=== PATIENT | female | born 1965 | race Caucasian/White ===

== ENCOUNTER → 2020-04-08 15:49 | Outpatient (CLI) | payer OTHER, SELFPAY ==
--- NOTE | ~2020-04-08 | XR_ITS ---
EXAMINATION: XR abdomen/kub 1V DATE: 04/08/2020 16:11 INDICATION: Renal calculus TECHNIQUE: A supine view of the abdomen on 2 radiographs was obtained. COMPARISON: 11/13/2018 FINDINGS: 11 x 6 mm ovoid calcific density projecting over the upper pole of the left kidney. These location ho wever the very periphery of the kidney would be unlikely for a renal stone and is more likely to repr esent a pill or other ingested density in the superimposed stomach. A couple 1 mm densities projectin g over the central aspect of the lower pole of the left kidney more likely to represent tiny renal st ones. Possible 3 mm stone projecting over the lower pole of the right kidney however evaluation of th e right kidney is limited by superimposed stool in the proximal colon. Unchanged small phlebolith in the right hemipelvis. Normal bowel gas pattern with moderate amount of stool scattered throughout the colon. IMPRESSION: 1. A couple 1 mm stones at the lower pole of the left kidney and possible 3 mm stone at the lower traci e of the left kidney. Reviewed, dictated and finalized at location A. IMPRESSION: 1. A couple 1 mm stones at the lower pole of the left kidney and possible 3 mm stone at the lower pole of the left kidney.
== END ==
PROVIDERS: Visit Provider Internal Medicine Nephrology
DX: N20.0 Calculus of kidney (principal)
CPT/HCPCS: 74018

== ENCOUNTER → 2020-09-08 17:21 | Outpatient (CLI) | payer OTHER, SELFPAY ==
--- NOTE | ~2020-09-08 | MM_ITS ---
EXAMINATION: MM screening [facility] BI w melina HISTORY: Screening mammogram TECHNIQUE: Craniocaudal and mediolateral oblique 3-D tomosynthesis images were obtained and synthetic 2-D images were generated. CAD analysis was submitted and interpreted. COMPARISON: 08/23/2019, 07/25/2018, 05/18/2017 bilateral digital screening mammogram examinations BREAST PARENCHYMAL COMPOSITION: The breasts are almost entirely fatty. FINDINGS: There is no evidence of suspicious mass, calcification, or architectural distortion to sugg est malignancy in either breast. There has been no suspicious interval change. IMPRESSION: 1. No mammographic evidence of malignancy. 2. Recommend routine screening mammography in one year. BI-RADS Category 1: Negative Reviewed, dictated and finalized at location A. LE BREAKER
== END ==
PROVIDERS: PCP Internal Medicine; Visit Provider Nurse Practitioner Obstetrics & Gynecology
DX: Z12.31 Encounter for screening mammogram for malignant neoplasm of breast (principal)
CPT/HCPCS: 77063; 77067

== ENCOUNTER → 2021-04-05 18:10 | Outpatient (CLI) | payer OTHER, SELFPAY ==
--- NOTE | ~2021-04-05 | XR_ITS ---
XR wrist LT min 3V DATE: 04/05/2021 19:00 INDICATION: Rheumatoid arthritis TECHNIQUE: 4 views of left breast COMPARISON: None FINDINGS: No fracture or dislocation, periosteal reaction or bone destruction. No erosive change is n oted. No chondrocalcinosis. Joint spaces are well preserved. IMPRESSION: Negative Reviewed, dictated and finalized at location A. IMPRESSION: Negative
--- NOTE | ~2021-04-05 | XR_ITS ---
XR foot LT min 3V DATE: 04/05/2021 19:00 INDICATION: Rheumatoid arthritis TECHNIQUE: 4 views COMPARISON: 07/21/2019 left foot FINDINGS: Mild narrowing at the first metatarsophalangeal joint likely due to minimal osteoarthritis. Mild plantar calcaneal enthesopathy. No fracture, dislocation, periosteal reaction or bone destruction. No erosive change is noted. IMPRESSION: Mild plantar calcaneal enthesopathy, stable since 07/21/2019 Minimal osteoarthritis at the first metatarsophalangeal joint Reviewed, dictated and finalized at location A.
--- NOTE | ~2021-04-05 | XR_ITS ---
XR wrist RT min 3V DATE: 04/05/2021 19:00 INDICATION: Rheumatoid arthritis TECHNIQUE: 4 views COMPARISON: None FINDINGS: There is joint space narrowing and spurring at the fifth carpometacarpal joint consistent w ith osteoarthritis. There is mild osteophyte is at the first metacarpophalangeal joint. No erosive change is evident. No fracture or dislocation, periosteal reaction or bone destruction or chondrocalcinosis. IMPRESSION: Osteoarthritis at the fifth carpometacarpal and first metacarpophalangeal joints Reviewed, dictated and finalized at location A. IMPRESSION: Osteoarthritis at the fifth carpometacarpal and first metacarpophal angeal joints
--- NOTE | ~2021-04-05 | XR_ITS ---
XR hand BI arthritis min 3V DATE: 04/05/2021 19:00 INDICATION: Rheumatoid arthritis TECHNIQUE: 4 views of each hand COMPARISON: None FINDINGS: Again noted is osteoarthritic change at the right fifth carpometacarpal and first metacarpo phalangeal joints. There are are mild osteoarthritic changes at the interphalangeal joints including minimal periarticular spurring, joint space narrowing and occasional degenerative ossicles at the rig ht hand. There is minimal periarticular spurring of the small degenerative ossicle at the proximal interphalan geal joint of the left third digit. No erosive changes are identified at left or right hand. No fracture, dislocation, periosteal reaction or bone destruction or chondrocalcinosis. IMPRESSION: Mild polyarticular osteoarthritis, right greater than left No erosive changes are noted. Reviewed, dictated and finalized at location A.
--- NOTE | ~2021-04-05 | XR_ITS ---
XR foot RT min 3V DATE: 04/05/2021 19:00 INDICATION: Rheumatoid arthritis TECHNIQUE: 4 views COMPARISON: 07/21/2019 right foot FINDINGS: Prominent hallux valgus and bunion deformity. There are 2 screws in the distal shaft of the first metatarsal bone. There is a screw of the metaphys is of the proximal phalanx of the first digit and another at the second metatarsal head. These are st able in position since 07/2019. Mild lucency adjacent to the screws is again noted but appears stable since 07/2019. Mild osteophyte is at the first metatarsophalangeal joint. No fracture, dislocation, periosteal reaction or bone destruction. No erosive change is noted. IMPRESSION: No erosive change or significant change since 07/21/2019 Reviewed, dictated and finalized at location A.
== END ==
DX: M06.09 Rheumatoid arthritis without rheumatoid factor, multiple sites (principal); M19.072 Primary osteoarthritis, left ankle and foot; M19.041 Primary osteoarthritis, right hand; M19.042 Primary osteoarthritis, left hand; M19.031 Primary osteoarthritis, right wrist
CPT/HCPCS: 73110; 73130; 73630

== ENCOUNTER → 2021-08-03 15:17 | Outpatient (CLI) | payer OTHER, SELFPAY ==
--- NOTE | ~2021-08-03 | XR_ITS ---
XR abdomen/kub 1V 08/03/2021 15:40 INDICATION: Renal stones TECHNIQUE: KUB COMPARISON: Comparison to multiple prior studies sequentially, with oldest reviewed study dated 09/07. FINDINGS: Bowel gas pattern is normal. There is no evidence of free air, mass, organomegaly, ascites or obstruction. No abnormal calculi are seen. No renal stones visualized. Kidneys obscured by bowel content. The bones appear intact. IMPRESSION: 1: No acute abdominal abnormality identified. Reviewed, dictated and finalized at location A. LER OPERATOR
== END ==
PROVIDERS: PCP Internal Medicine; Visit Provider Internal Medicine Nephrology
DX: N20.0 Calculus of kidney (principal)
CPT/HCPCS: 74018

== ENCOUNTER → 2021-09-12 11:33 | Outpatient (CLI) | payer OTHER, SELFPAY ==
--- NOTE | ~2021-09-12 | MM_ITS ---
EXAMINATION: MM screening [facility] BI w melina HISTORY: Screening mammogram TECHNIQUE: Craniocaudal and mediolateral oblique 3-D tomosynthesis images were obtained and synthetic 2-D images were generated. CAD analysis was submitted and interpreted. COMPARISON: 09/08/2020, 08/23/2019, 07/25/2018 BREAST PARENCHYMAL COMPOSITION: The breasts are almost entirely fatty. FINDINGS: There is no evidence of suspicious mass, calcification, or architectural distortion to sugg est malignancy in either breast. There has been no suspicious interval change. IMPRESSION: 1. No mammographic evidence of malignancy. 2. Recommend routine screening mammography in one year. BI-RADS Category 1: Negative Reviewed, dictated and finalized at location A. S ADMINISTRATOR
== END ==
PROVIDERS: Visit Provider Nurse Practitioner Obstetrics & Gynecology
DX: Z12.31 Encounter for screening mammogram for malignant neoplasm of breast (principal)
CPT/HCPCS: 77063; 77067

== ENCOUNTER → 2022-10-05 11:11 | Outpatient (CLI) | payer BC, SELFPAY ==
--- NOTE | ~2022-10-05 | MM_ITS ---
EXAMINATION: MM screening [facility] BI w melina HISTORY: Screening mammogram TECHNIQUE: Craniocaudal and mediolateral oblique 3-D tomosynthesis images were obtained and synthetic 2-D images were generated. CAD analysis was submitted and interpreted. COMPARISON: 09/08/2021, 09/08/2020, 08/2019 bilateral screening mammogram examinations BREAST PARENCHYMAL COMPOSITION: The breasts are almost entirely fatty. FINDINGS: There is no evidence of suspicious mass, calcification, or architectural distortion to sugg est malignancy in either breast. There has been no suspicious interval change. IMPRESSION: 1. No mammographic evidence of malignancy. 2. Recommend routine screening mammography in one year. BI-RADS Category 1: Negative Reviewed, dictated and finalized at location A. TO PANCAKE FRIER
== END ==
PROVIDERS: PCP Internal Medicine; Visit Provider Nurse Practitioner Obstetrics & Gynecology
DX: Z12.31 Encounter for screening mammogram for malignant neoplasm of breast (principal)
CPT/HCPCS: 77063; 77067

== ENCOUNTER → 2023-03-23 14:07 | Outpatient (CLI) | payer BC, SELFPAY ==
--- NOTE | ~2023-03-23 | XR_ITS ---
EXAMINATION: XR abdomen/kub 1V DATE: 03/23/2023 14:40 INDICATION: Calculus of kidney. TECHNIQUE: A supine view of the abdomen on 2 radiographs was obtained. COMPARISON: Abdomen radiographs 08/03/2021, CT abdomen and pelvis 09/11/2016 FINDINGS: There are no dilated loops of bowel. There are phleboliths in the pelvis. IMPRESSION: 1. No visible urolithiasis. Reviewed, dictated and finalized at location B. IMPRESSION: 1. No visible urolithiasis.
== END ==
PROVIDERS: PCP Internal Medicine; Visit Provider Internal Medicine Nephrology
DX: N20.0 Calculus of kidney (principal)
CPT/HCPCS: 74018

== ENCOUNTER → 2023-03-23 14:10 | Outpatient (CLI) | payer BC, SELFPAY ==
--- NOTE | ~2023-03-23 | XR_ITS ---
EXAMINATION: XR hand BI arthritis min 3V DATE: 03/23/2023 14:40 INDICATION: Rheumatoid arthritis without rheumatoid factor. TECHNIQUE: 4 views of right hand and 4 views of left hand on a total of 7 radiographs were obtained. COMPARISON: Wrist radiographs 07/21/2019 FINDINGS: RIGHT HAND: Bone alignment is normal. No fracture. There is mild osteoarthritis of second metacarpoph alangeal joint and second-fifth proximal and distal interphalangeal joints. LEFT HAND: Bone alignment is normal. No fracture. There is mild osteoarthritis of second-fourth proxi mal interphalangeal joints and second, fourth, and fifth distal interphalangeal joints. IMPRESSION: 1. Mild polyarticular osteoarthritis. No evidence of inflammatory arthropathy. Reviewed, dictated and finalized at location B.
--- NOTE | ~2023-03-23 | XR_ITS ---
EXAMINATION: XR foot LT min 3V DATE: 03/23/2023 14:40 INDICATION: Rheumatoid arthritis without rheumatoid factor. TECHNIQUE: 4 views of left foot were obtained. COMPARISON: Left foot radiographs 04/05/2021 FINDINGS: Bone alignment is normal. No fracture. There is mild midfoot osteoarthritis. There is an en thesophyte at plantar aspect of calcaneal tuberosity. IMPRESSION: 1. Mild midfoot osteoarthritis. Reviewed, dictated and finalized at location B.
--- NOTE | ~2023-03-23 | XR_ITS ---
EXAMINATION: XR wrist LT min 3V DATE: 03/23/2023 14:40 INDICATION: Rheumatoid arthritis without rheumatoid factor. TECHNIQUE: 3 views of left wrist were obtained. COMPARISON: None. FINDINGS: Bone alignment is normal. No fracture. Joint spaces are normal. IMPRESSION: 1. Normal left wrist. Reviewed, dictated and finalized at location B. IMPRESSION: 1. Normal left wrist.
--- NOTE | ~2023-03-23 | XR_ITS ---
EXAMINATION: XR wrist RT min 3V DATE: 03/23/2023 14:40 INDICATION: Rheumatoid arthritis without rheumatoid factor. TECHNIQUE: 3 views of right wrist were obtained. COMPARISON: None. FINDINGS: Bone alignment is normal. No fracture. Joint spaces are normal. IMPRESSION: 1. Normal right wrist. Reviewed, dictated and finalized at location B. IMPRESSION: 1. Normal right wrist.
--- NOTE | ~2023-03-23 | XR_ITS ---
EXAMINATION: XR foot RT min 3V DATE: 03/23/2023 14:40 INDICATION: Rheumatoid arthritis without rheumatoid factor. TECHNIQUE: 4 views of right foot were obtained. COMPARISON: Right foot radiographs 04/05/2021 FINDINGS: There is severe hallux valgus. There are 2 screws in first metatarsal. There is a screw in first proximal phalanx. There is a screw in head of second metatarsal. There are likely changes of re section of head of second proximal phalanx. There is mild osteoarthritis of first metatarsophalangeal joint. IMPRESSION: 1. Severe hallux valgus. 2. Mild osteoarthritis of first metatarsophalangeal joint. Reviewed, dictated and finalized at location B.
== END ==
PROVIDERS: PCP Internal Medicine
DX: M06.09 Rheumatoid arthritis without rheumatoid factor, multiple sites (principal); M19.041 Primary osteoarthritis, right hand; M19.042 Primary osteoarthritis, left hand; M19.071 Primary osteoarthritis, right ankle and foot; M20.11 Hallux valgus (acquired), right foot; M19.072 Primary osteoarthritis, left ankle and foot
CPT/HCPCS: 73110; 73130; 73630

== ENCOUNTER → 2023-09-28 14:20 | Outpatient (CLI) | payer BC, SELFPAY ==
--- NOTE | ~2023-09-28 | XR_ITS ---
EXAMINATION: XR lumbar spine 2-3V DATE: 09/28/2023 14:44 INDICATION: Dorsalgia, unspecified. TECHNIQUE: 3 views of lumbar spine including standing views were obtained. COMPARISON: None. FINDINGS: There is 24 degrees levoscoliosis of thoracolumbar spine. There is mild chronic anterior we dging of T11 and T12 vertebral bodies. There is mildly decreased disc height at L2-L3, L3-L4, and L4- L5 and severely decreased disc height at L5-S1. There is multilevel facet joint osteoarthritis, sever e in lower lumbar spine. IMPRESSION: 1. Severe lower lumbar spondylosis. 2. Thoracolumbar levoscoliosis. Reviewed, dictated and finalized at location E. F SERVICE OBSERVER
--- NOTE | ~2023-09-28 | XR_ITS ---
EXAMINATION: XR_CERV2-3V_CR DATE: 09/28/2023 14:44 INDICATION: Neck pain. TECHNIQUE: 4 views of cervical spine were obtained. COMPARISON: None. FINDINGS: There is 2 mm anterolisthesis of C4 on C5. There is 3 degrees dextrocurvature of cervical s pine. Vertebral body heights are normal. There is mildly decreased disc height at C4-C5, C5-C6, and C 6-C7. There is multilevel mild to moderate facet joint osteoarthritis. There is mild central canal st enosis at C4-C5. No prevertebral soft tissue swelling. IMPRESSION: 1. Mild cervical spondylosis. Reviewed, dictated and finalized at location E. CTION MACHINE OPERATOR
== END ==
PROVIDERS: PCP Nurse Practitioner
DX: M47.896 Other spondylosis, lumbar region (principal); M47.892 Other spondylosis, cervical region
CPT/HCPCS: 72040; 72100

== ENCOUNTER 2023-11-06 12:32 | Outpatient (CLI) | payer BC, SELFPAY ==
--- NOTE | ~2023-11-06 | MM_ITS ---
EXAMINATION: MM screening [facility] BI w melina HISTORY: Screening TECHNIQUE: Craniocaudal and mediolateral oblique 3-D tomosynthesis images were obtained and synthetic 2-D images were generated. CAD analysis was submitted and interpreted. COMPARISON: Comparison to multiple prior studies sequentially, with oldest reviewed study dated 05/18. BREAST PARENCHYMAL COMPOSITION: The breasts are almost entirely fatty. FINDINGS: There is no evidence of suspicious mass, calcification, or architectural distortion to sugg est malignancy in either breast. There has been no suspicious interval change. IMPRESSION: 1. No mammographic evidence of malignancy. 2. Recommend routine screening mammography in one year. BI-RADS Category 1: Negative Reviewed, dictated and finalized at location A.
== END 2023-11-06 12:33 ==
PROVIDERS: PCP Nurse Practitioner Obstetrics & Gynecology; Visit Provider Nurse Practitioner Obstetrics & Gynecology
DX: Z12.31 Encounter for screening mammogram for malignant neoplasm of breast (principal)
CPT/HCPCS: 77063; 77067

== ENCOUNTER 2024-08-14 16:49 | Outpatient (CLI) | payer BC, SELFPAY ==
--- NOTE | ~2024-08-14 | XR_ITS ---
EXAM: XR abdomen/kub 1V DATE: 08/14/2024 17:06 HISTORY: E55.9 - Vitamin D deficiency, unspecified . COMPARISON: 03/23/2023. FINDINGS: Clear lung bases. Normal bowel gas pattern. Enlarged liver. No abnormal abdominal calcific ation. Pelvic phleboliths. Mild scoliosis. Degenerative changes in the lumbar spine and bilateral hip s. IMPRESSION: Mild hepatomegaly. No radiographic evidence of obstruction or ileus. Reviewed, dictated and finalized at location K. UT DESIGNER IMPRESSION: Mild hepatomegaly. No radiographic evidence of obstruction or ileus .
== END 2024-08-14 16:50 | disposition home or self-care (01) ==
LOC: MICIMG 16:50
PROVIDERS: PCP Clinical Nurse Specialist; Visit Provider Internal Medicine Nephrology
DX: E55.9 Vitamin D deficiency, unspecified (principal); R16.0 Hepatomegaly, not elsewhere classified
CPT/HCPCS: 74018

== ENCOUNTER 2024-11-06 12:47 | Outpatient (CLI) | payer BC, SELFPAY ==
--- NOTE | ~2024-11-06 | MM_ITS ---
EXAMINATION: MM screening [facility] BI w melina HISTORY: Screening TECHNIQUE: Craniocaudal and mediolateral oblique 3-D tomosynthesis images were obtained and synthetic 2-D images were generated. CAD analysis was submitted and interpreted. COMPARISON: Comparison to multiple prior studies sequentially, with oldest reviewed study dated 01/2018. BREAST PARENCHYMAL COMPOSITION: Not Dense. The breasts are almost entirely fatty. FINDINGS: There is no evidence of suspicious mass, calcification, or architectural distortion to sugg est malignancy in either breast. There has been no suspicious interval change. IMPRESSION: 1. No mammographic evidence of malignancy. 2. Recommend routine screening mammography in one year. BI-RADS Category 1: Negative Reviewed, dictated and finalized at location B.
== END 2024-11-06 12:48 | disposition home or self-care (01) ==
LOC: MICIMG 12:49
PROVIDERS: PCP Clinical Nurse Specialist; Visit Provider Student in an Organized Health Care Education/Training Program
DX: Z12.31 Encounter for screening mammogram for malignant neoplasm of breast (principal)
CPT/HCPCS: 77063; 77067

== ENCOUNTER 2024-11-11 01:40 | Day surgery (SDC) | payer BC, SELFPAY ==
[2024-08-21 13:07] VITALS: BMI 31.3
[2024-10-31 11:25] VITALS: BMI 31.3
--- OUTSIDE RECORDS SUMMARY | 2024-11-11 01:44 | XMS_ITS | Clinical Summary ---
Author Organization [facility] Address [address] [place] [address] Care Team Providers Care Vp Emerging Media Name Role Phone Jignesh Chino DO Primary Care Provider [phone] Allergies Active Allergy Reactions Criticality Noted Date Comments Penicillins Other (See comments) Low 12/04/2020 Sulfa (Sulfonamide Antibiotics) Unknown Medium 11/18 Medications aMILoride-hydr oCHLOROthiazid e (MODURETIC) 5-50 mg tablet 8 Active pseudoephedrin e (SUDAFED) 30 mg tabletIndicati ons:Nasal Congestion as needed 2 Active rizatriptan (MAXALT) 10 mg tabletIndicati ons:Migraine as needed 8 Active POTASSIUM CHLORIDE ER 10 mEq CR tablet 8 Active hydroCHLOROthi azide (HYDRODIURIL) 25 mg tablet Take 1 tablet (25 mg total) by mouth daily 7 9 Active atorvastatin (LIPITOR) 10 mg tablet Take 1 tablet (10 mg total) by mouth daily Active eletriptan (RELPAX) 20 mg tablet Relpax 20 mg tablet take 1 tablet by oral route ; if headache returns, the dose may be repeated after 2 hours, but no more than two doses should be given within a 24-hour period. Active ergocalciferol (VITAMIN D) 50,000 unit capsule Vitamin D2 1,250 mcg (50,000 unit) capsule take 1 capsule by oral route every week Active levothyroxine (SYNTHROID) 112 mcg tablet Take 1 tablet (112 mcg total) by mouth daily [address] (NexIUM) 40 mg capsule Take 1 capsule (40 mg total) by mouth daily as needed Active hydroxychloroq uine (PLAQUENIL) 200 mg tabletIndicati ons:Rheumatoid Arthritis Take 2 tablets (400 mg total) by mouth daily 180 tablet 3 4 Active Additional Information Patient not taking.Reported on 10/20/2024 methotrexate 2.5 mg tabletIndicati ons:Rheumatoid Arthritis Take 8 tablets (20 mg total) by mouth every 7 days 96 tablet 1 5 Active folic acid (FOLVITE) 1 mg tablet Take 1 tablet (1,000 mcg total) by mouth daily 90 tablet 3 5 Active methotrexate 2.5 mg tabletIndicati ons:Rheumatoid Arthritis Take 8 tablets (20 mg total) by mouth every 7 days 96 tablet 1 4 10/21/19 25 Discontin ued(Reord er) folic acid (FOLVITE) 1 mg tablet TAKE 1 TABLET BY MOUTH EVERY DAY 90 tablet 1 4 10/21/19 25 Discontin ued(Reord er) Active Problems Problem Noted Date Diagnosed Date Rheumatoid arthritis of mult [facility] sites with negative rheumatoid factor 08/08/2018 High risk medication use 06/07/2018 Raynaud's disease without gangrene 06/07/2018 Abdominal pain 08/30/2016 Encounter for specialized medical examination Screening for malignant neoplasm of the rectum 0 03/10/2015 Well adult health check 02/26/2014 Vaginitis and vulvovaginitis 11/26/2013 Calculus of kidney 08/26/2012 Screening for malignant neoplasm of cervix 12/03 Resolved Problems Problem Noted Date Diagnosed Date Resolved Date Inflammatory polyarthropathy 08/05/2012 06/07/2018 Encounters Date Type Department Care Team Description 10/20/2024 2:40 PM AUTOMATIC SPINNING LATHE OPERATOR Office Visit [facility] [address]nd [address] [place] [address] Jackelyn Kowalski, BICYCLE MECHANIC 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 Dx) 09/24/2024 Orders Only [facility] [address] [place] [address] Jackelyn Kowalski NP from Last 3 Months Surgical History Surgery Date Site/Laterality Comments FOOT FRACTURE SURGERY HAND SURGERY FOOT SURGERY Right bunionectomy and repair of 2nd right hammer toe on Aug 19, 2015. Medical History Medical History Date Comments Kidney stones Kidney stones-x4 Hyperlipidemia Migraines Rheumatoid arthritis (HCC) Inflammatory polyarthritis (HCC) High risk medication use Kidney stone Diverticulosis Family History Medical History Relation Name Comments Asthma Daughter Heart disease Father Family history of cardiac disorder - (Added by Conv) Arthritis Mother Dementia Mother Hearing loss Mother Hypothyroidism Mother Family histor y of hypothyroidism - (Added by Conv) Kidney disease Mother Osteoarthritis Mother Osteoporosis Mother Family history of osteoporosis - (Added by Conv) Vision loss Mother Relation Name Status Comments Daughter Alive Father Mother Alive Social History Tobacco Use Types Packs/Day Years Used Date Smoking Tobacco: Never Passive Smoke Exposure: Never Smokeless Tobacco: Never Tobacco Cessation:Counseling Given: Not Answered Comments Unknown Sex and Gender Information Value Date Recorded Sex Assigned at Not on file Legal Sex Female 7:39 PM AUTOMATIC SPINNING LATHE OPERATOR Gender Identity Not on file Sexual Orientation Not on file Obstetrics History Last Filed Vital Signs Vital Sign Reading Time Taken Comments Blood Pressure 122/74 10/20/2024 2:49 PM AUTOMATIC SPINNING LATHE OPERATOR Pulse 91 10/20/2024 2:49 PM AUTOMATIC SPINNING LATHE OPERATOR Temperature 36.6 C (97.9 F) 10/20/2024 2:49 PM AUTOMATIC SPINNING LATHE OPERATOR Respiratory Rate - - Oxygen Saturation 100% 10/20/2024 2:49 PM AUTOMATIC SPINNING LATHE OPERATOR Inhaled Oxygen Concentration - - Weight 92.4 kg (203 lb 9.6 oz) 10/20/2024 2:49 P M AUTOMATIC SPINNING LATHE OPERATOR Height 170.2 cm (5' 7 ) 10/20/2024 2:49 PM AUTOMATIC SPINNING LATHE OPERATOR Body Mass Index 31.89 10/20/2024 2:49 PM AUTOMATIC SPINNING LATHE OPERATOR Plan of Treatment Health Maintenance Due Date Last Done Comments Cervical Cancer Screening 1964 Colon Cancer Screening-Colonoscopy 1964 Depression Screening 1964 Hepatitis C Screening 1964 Hepatitis B Screening 1982 Regular Well Visit/Exam 18-64 1982 Pneumococcal vaccine <65 (1 of 2 - PCV) 1983 Breast Cancer Screening-Mammogram 10/05/2023 10/05/2022, 09/12/2021, 09/09/2020 Influenza Vaccine (#1) 2024 0, 06/09/2019, 05/24/2018, Additional history exists DTaP/Tdap/Td Vaccine (2 - Td or Tdap) 04/25/2028 04/25/2018 Zoster Vaccine Completed 12/22/2018, 10/19/2018 Procedures Procedure Name Priority Date/Time Associated Diagnosis Comments CRP (ACUTE PHASE) Routine 09/24/2024 3:0 7 PM AUTOMATIC SPINNING LATHE OPERATOR ERYTHROCYTE SEDIMENTATION RATE Routine 09/24/2024 3:07 PM AUTOMATIC SPINNING LATHE OPERATOR COMPREHENSIVE METABOLIC PANEL Routine 09/24/2024 3:07 PM AUTOMATIC SPINNING LATHE OPERATOR CBC WITH AUTO DIFFERENTIAL Routine 09/24/2024 3:07 PM AUTOMATIC SPINNING LATHE OPERATOR from Last 3 Months Results * CBC with auto differential (09/24/2024 3:07 PM AUTOMATIC SPINNING LATHE OPERATOR) WBC 5.8 3.8 - 10.8 Thousand/u L [facility] RBC, POC 4.64 3.80 - 5.10 Million/uL [facility] Hgb 14.4 11.7 - 15.5 g/dL [facility] Hct 43.6 35.0 - 45.0 % [facility] MCV 94.0 80.0 - 100.0 fL [facility] MCH 31.0 27.0 - 33.0 pg [facility] MCHC 33.0 32.0 - 36.0 g/dL [facility] Comment: For adults, a slight decrease in the calculated MCHC value (in the range of 30 to 32 g/dL) is most likely not clinically significant; however, it should be interpreted with caution in correlation with other red cell parameters and the patient's clinical condition. Rdw 13.1 11.0 - 15.0 % [facility] Platelets 275 140 - 400 Thousand/u L [facility] MPV 9.5 7.5 - 12.5 fL [facility] Neutrophils, abs 3,428 1,500 - 7,800 cells/uL [facility] Lymphocytes, abs 1,641 850 - 3,900 cells/uL [facility] Monocyte abs 493 200 - 950 cells/uL [facility] Eosinophils, abs 168 15 - 500 cells/uL [facility] Basophils, abs 70 0 - 200 cells/uL [facility] Neutrophils 59.1 % [facility] Lymphocyte pct 28.3 % [facility] Monocytes 8.5 % [facility] Eosinophils 2.9 % [facility] Basophils 1.2 % [facility] 09/24/2024 3:07 PM AUTOMATIC SPINNING LATHE OPERATOR 09/24/2024 3:08 PM AUTOMATIC SPINNING LATHE OPERATOR Jackelyn Kowalski NP LAB BLOOD ORDERABLES Final Result Performing Organization Address City/[facility]/ZIP Co de Phone Number [place] [address] [place] [address] * Erythrocyte sedimentation rate (09/24/2024 3:07 PM AUTOMATIC SPINNING LATHE OPERATOR) Pathologist [facility] [place] Erythrocyte sedimentation rate 8 < OR = 30 mm/h [facility] 09/24/2024 3:07 PM AUTOMATIC SPINNING LATHE OPERATOR 09/24/2024 3:08 PM AUTOMATIC SPINNING LATHE OPERATOR Jackelyn Kowalski NP LAB BLOOD ORDERABLES Final Result Performing Organization Address [facility] Co de Phone Number [facility] [employer] [place] [address] [place] [address] * CRP (acute phase) (09/24/2024 3:07 PM AUTOMATIC SPINNING LATHE OPERATOR) C-RP <5.0 <8.0 mg/L [facility] 09/24/2024 3:07 PM AUTOMATIC SPINNING LATHE OPERATOR 09/24/2024 3:08 PM AUTOMATIC SPINNING LATHE OPERATOR Jackelyn Kowalski NP LAB BLOOD ORDERABLES Final Result Performing Organization Address [facility] Co de Phone Number [employer] [place] [address] [place] [address] * (ABNORMAL) Comprehensive metabolic panel (09/24/2024 3:07 PM AUTOMATIC SPINNING LATHE OPERATOR) Pathologist [facility] [place] Glucose 98 65 - 99 mg/dL [facility] Comment: Fasting reference interval BUN 19 7 - 25 mg/dL [facility] Creatinine 1.02 0.50 - 1.05 mg/dL [facility] eGFR 63 > OR = 60 mL/min/1.7 3m2 [facility] BUN/creat ratio SEE NOTE: 6 - 22 (calc) [facility] Comment: Not Reported: BUN and Creatinine are within reference range. Sodium 142 135 - 146 mmol/L [facility] Potassium, pl 3.6 3.5 - 5.3 mmol/L [facility] Chloride 102 98 - 110 mmol/L [facility] CO2 33(H) 20 - 32 mmol/L [facility] Calcium 9.9 8.6 - 10.4 mg/dL [facility] Protein, sr 7.0 6.1 - 8.1 g/dL [facility] Albumin 4.6 3.6 - 5.1 g/dL [facility] GLOBULIN 2.4 1.9 - 3.7 g/dL (calc) [facility] Alb/glob ratio 1.9 1.0 - 2.5 (calc) [facility] Bilirubin, total 0.9 0.2 - 1.2 mg/dL [facility] Alk phos 73 37 - 153 U/L [facility] AST 24 10 - 35 U/L [facility] ALT (SGPT) 23 6 - 29 U/L [facility] 09/24/2024 3:07 PM AUTOMATIC SPINNING LATHE OPERATOR 09/24/2024 3:08 PM AUTOMATIC SPINNING LATHE OPERATOR us Jackelyn Kowalski BICYCLE MECHANIC LAB BLOOD ORDERABLES Final Result [facility] [address] [place] [address] from Last 3 Months Insurance [employer] ACCESS OOS Care Teams Vp Emerging Media Relationship Specialty Start Date End Date Jignesh Chino DO PCP - General 12/06/16
--- OUTSIDE RECORDS SUMMARY | 2024-11-11 01:44 | XMS_ITS | Referral Summary ---
Author Organization [facility] Address [address] [place] [address] Care Team Providers Care Eyewear Manufacturing Supervisor Name Role Phone Jignesh Chino DO Primary Care Provider [phone]- [phone] Encounters Date Type Department Care Team Description 10/20/2024 2:40 PM CASTING TECHNICIAN Office Visit [facility] Rheumatology [address]nd [address] [place] [address] Jackelyn Kowalski NP 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 Dx) 09/24/2024 Orders Only [facility] Rheumatology [address] [place] [address] Jackelyn Kowalski NP from Last 3 Months Allergies Active Allergy Reactions Criticality Noted Date [...] Noted Date Diagnosed Date [facility] with [facility] rheumatoid factor 08/08/2018 High [...] Date Resolved Date Inflammatory polyarthropathy 08/05/2012 06/07/2018 Social History Tobacco Use Types Packs/Day Years Used Date Smoking Tobacco: Never Passive Smoke Exposure: Never Smokeless Tobacco: Never Tobacco Cessation:Counseling Given: Not Answered Comments Unknown Sex and Gender Information Value Date Recorded Sex Assigned at Not on file Legal Sex Female 7:39 PM CASTING TECHNICIAN Gender Identity Not on file Sexual Orientation Not on file Last Filed Vital Signs Vital Sign Reading Time Taken Comments Blood Pressure 122/74 10/20/2024 2:49 PM CASTING TECHNICIAN Pulse 91 10/20/2024 2:49 PM CASTING TECHNICIAN Temperature 36.6 C (97.9 F) 10/20/2024 2:49 PM CASTING TECHNICIAN Respiratory Rate - - Oxygen Saturation 100% 10/20/2024 2:49 PM CASTING TECHNICIAN Inhaled Oxygen Concentration - - Weight 92.4 kg (203 lb 9.6 oz) 10/20/2024 2:49 P M CASTING TECHNICIAN Height 170.2 cm (5' 7 ) 10/20/2024 2:49 PM CASTING TECHNICIAN Body Mass Index 31.89 10/20/2024 2:49 PM CASTING TECHNICIAN Plan of Treatment Not on file Procedures Procedure Name Priority Date/Time Associated Diagnosis Comments CRP (ACUTE PHASE) Routine 09/24/2024 3:0 7 PM CASTING TECHNICIAN ERYTHROCYTE SEDIMENTATION RATE Routine 09/24/2024 3:07 PM CASTING TECHNICIAN COMPREHENSIVE METABOLIC PANEL Routine 09/24/2024 3:07 PM CASTING TECHNICIAN CBC WITH AUTO DIFFERENTIAL Routine 09/24/2024 3:07 PM CASTING TECHNICIAN from Last 3 Months Results * CBC with auto differential (09/24/2024 3:07 PM CASTING TECHNICIAN) WBC 5.8 3.8 - 10.8 Thousand/u L [facility] RBC, POC 4.64 3.80 - 5.10 Million/uL [facility] Hgb 14.4 11.7 - 15.5 g/dL [facility] Hct 43.6 35.0 - 45.0 % [facility] MCV 94.0 80.0 - 100.0 fL [facility] MCH 31.0 27.0 - 33.0 pg [employer] MCHC 33.0 32.0 - 36.0 g/dL [employer] [facility] Comment: For adults, a slight decrease in the calculated MCHC value (in the range of 30 to 32 g/dL) is most likely not clinically significant; however, it should be interpreted with caution in correlation with other red cell parameters and the patient's clinical condition. Rdw 13.1 11.0 - 15.0 % [employer] Platelets 275 140 - 400 Thousand/u L [employer] MPV 9.5 7.5 - 12.5 fL [employer] Neutrophils, abs 3,428 1,500 - 7,800 cells/uL [employer] [facility] Lymphocytes, abs 1,641 850 - 3,900 cells/uL [facility] Monocyte abs 493 200 - 950 cells/uL [facility] Eosinophils, abs 168 15 - 500 cells/uL [facility] Basophils, abs 70 0 - 200 cells/uL [employer] Neutrophils 59.1 % [facility] Lymphocyte pct 28.3 % [facility] Monocytes 8.5 % [facility] Eosinophils 2.9 % [facility] Basophils 1.2 % [facility] 09/24/2024 3:07 PM CASTING TECHNICIAN 09/24/2024 3:08 PM CASTING TECHNICIAN Jackelyn Kowalski RECRUITING OPERATIONS CONSULTANT LAB BLOOD ORDERABLES Final Result Performing Organization Address City/[facility]/ZIP Co de Phone Number [facility] [address] [place] [address] * Erythrocyte sedimentation rate (09/24/2024 3:07 PM CASTING TECHNICIAN) Erythrocyte sedimentation rate 8 < OR = 30 mm/h [facility] 09/24/2024 3:07 PM CASTING TECHNICIAN 09/24/2024 3:08 PM CASTING TECHNICIAN Jackelyn Kowalski RECRUITING OPERATIONS CONSULTANT LAB BLOOD ORDERABLES Final Result [facility] [address] [place] [address] * CRP (acute phase) (09/24/2024 3:07 PM CASTING TECHNICIAN) [facility] C-RP <5.0 <8.0 mg/L [facility] 09/24/2024 3:07 PM CASTING TECHNICIAN 09/24/2024 3:08 PM CASTING TECHNICIAN Jackelyn Kowalski RECRUITING OPERATIONS CONSULTANT LAB BLOOD ORDERABLES Final Result [facility] [address] [place] [address] * (ABNORMAL) Comprehensive metabolic panel (09/24/2024 3:07 PM CASTING TECHNICIAN) [facility] Glucose 98 65 - 99 mg/dL [facility] Comment: Fasting reference interval BUN 19 7 - 25 mg/dL [facility] Creatinine 1.02 0.50 - 1.05 mg/dL [facility] eGFR 63 > OR = 60 mL/min/1.[address] [facility] BUN/creat ratio SEE NOTE: 6 - 22 (calc) [facility] Comment: Not Reported: BUN and Creatinine are within reference range. Sodium 142 135 - 146 mmol/L [facility] Potassium, pl 3.6 3.5 - 5.3 mmol/L [facility] Chloride 102 98 - 110 mmol/L [facility] CO2 33(H) 20 - 32 mmol/L [facility] Calcium 9.9 8.6 - 10.4 mg/dL [facility] Protein, sr 7.0 6.1 - 8.1 g/dL [facility] Albumin 4.6 3.6 - 5.1 g/dL [facility] GLOBULIN 2.4 1.9 - 3.7 g/dL (calc) [facility] Alb/glob ratio 1.9 1.0 - 2.5 (calc) [facility] Bilirubin, total 0.9 0.2 - 1.2 mg/dL [facility] Alk phos 73 37 - 153 U/L [facility] AST 24 10 - 35 U/L [facility] ALT (SGPT) 23 6 - 29 U/L [facility] 09/24/2024 3:07 PM CASTING TECHNICIAN 09/24/2024 3:08 PM CASTING TECHNICIAN us Jackelyn Kowalski RECRUITING OPERATIONS CONSULTANT LAB BLOOD ORDERABLES Final Result [facility] [address] [place] [address] from Last 3 Months Insurance [employer] OOS Care Teams Eyewear Manufacturing Supervisor Relationship Specialty Start Date End Date Jignesh Chino DO PCP - General 12/06/16
--- OUTSIDE RECORDS SUMMARY | 2024-11-11 01:44 | XMS_ITS | Continuity of Care Document ---
Author Organization [facility] Address [address] [facility] [address] [place] [address] Phone Care Team Providers Care Child Care Name Role Phone Joe Branham Unavailable Unavailable Procedures Procedure Date Eye Exam & Treatment Refraction Advance Directives Directive Yes / No Effective Date File Name No Information Encounters Encounter Description Practice Location Reason(s) For Visit Diagnoses Date Provider Providers Copied on Encounter [facility], [address], [place], [place], [id number], [place] tel:[phone] [facility] No Information 7-201 0 Yonas Diaz. [address] [employer] [facility] [address], [address], [place]. tel:[phone] Family History Family Member Type Diagnosis Age At Onset No Information Payers Payer name Insurance type Covered constitution party ID Authorjamina oneidamarquez(s) [facility] CI [id number] Social History Type Description Quantity Date Captured Comments Sex Female Smoking Status No Information Chief Complaint And Reason For Visit No Information Reason For Referral Reason For Referral No Information History Of Present Illness Encounter Date Complaint History Of Prese nt Illness No Information Functional Status Date Functional Assessmen t No Information Instructions Date Instruction Additional Infor mation No Information Assessments Type Assessment Date No Information Patient Care Teams Name Effective Dates (start - stop) Status Members No Information
--- OUTSIDE RECORDS SUMMARY | 2024-11-11 01:44 | XMS_ITS | Encounter Summary ---
Author Organization [facility] Address [address] [place] [address] Phone Care Team Providers Care Continuous Drier Operator Name Role Phone Jignesh Chino DO Primary Care Provider [phone] Reason for Visit * Reason Comments Med Refill Encounter Details Date Type Department Care Team (Late st Contact Info) Description 08/25/2020 Refill [facility] Nephrology and Hypertension [facility], [address] [address] Prieto Briggs MD [address] [facility] [facility] [place] [address] Social History Tobacco Use Types Packs/Day Years Used Date Smoking Tobacco: Never Smokeless Tobacco: Never Alcohol Use Standard Drinks/Week Comments Yes 0 (1 standard drink = 0.6 oz pur e alcohol) rare Sex and Gender Information Value Date Recorded Sex Assigned at Not on file Gender Identity Not on file Sexual Orientation Not on file documented as of this encounter Miscellaneous Notes * Telephone Encounter - Prieto Briggs MD - 08/26/2020 4:11 PM CST Please call pt and make sure she is not getting amiloride/hct but is getting hydrochlorothiazide. documented in this encounter Plan of Treatment Not on file documented as of this encounter Visit Diagnoses Not on filedocumented in this encounter Care Teams Continuous Drier Operator Relationship Specialty Start Date End Date Jignesh Chino DO [address] [place] [address] PCP - General Internal Medicine 11/06/18 documented as of this encounter
--- OUTSIDE RECORDS SUMMARY | 2024-11-11 01:44 | XMS_ITS | Encounter Summary ---
Author Organization [facility] Address [address] [place] [address] Phone Care Team Providers Care Health Practice Manager Name Role Phone Jignesh Chino DO Primary Care Provider [phone] Encounter Details Date Type Department Care Team (Late st Contact Info) Description 03/23/2023 Orders Only [facility] Scanning, Provider Social History Tobacco Use Types Packs/Day Years Used Date Smoking Tobacco: Never Passive Smoke Exposure: Never Smokeless Tobacco: Never Comments Unknown Sex and Gender Information Value Date Recorded Sex Assigned at Not on file Legal Sex Female 7:39 PM ALUMINUM CONTAINER TESTER Gender Identity Not on file Sexual Orientation Not on file documented as of this encounter Plan of Treatment Not on file documented as of this encounter Procedures Procedure Name Priority Date/Time Associated Diagnosis Comments SCAN - RADIOLOGY/IMAGING 03/23/2023 documented in this encounter Results * SCAN - RADIOLOGY/IMAGING (03/23/2023) Anatomical Region Laterality Modality Other us Provider Scanning Edited Result - Final documented in this encounter Visit Diagnoses Not on filedocumented in this encounter Care Teams Health Practice Manager Relationship Specialty Start Date End Date Jignesh Chino DO PCP - General 12/06/16 documented as of this encounter
--- OUTSIDE RECORDS SUMMARY | 2024-11-11 01:44 | XMS_ITS | Continuity of Care Document ---
Author Organization [facility] Address [address] [place] [address] Phone Care Team Providers Care Industrial Controller Name Role Phone Jeffrey Westfall MD Unavailable Unavailable Allergies, Adverse Reactions, Alerts Substance Reaction Status Criticality No Known Drug Allergies Other Active No I nformation Medications Medication Instructions Dosage Effective Dates (start - stop) Status Comments IMITREX 100 MG TABLET 1 DIRECTE - Active 06-14-07 [facility] LEVOXYL 137MCG TABS 1 QD-daily - Activ e IMITREX 100MG TABS 1 DIRECTE - No Longer Active LEVOTHROID 125 MCG TABLET 1 QD-daily - No Longer Active this refill only please have pt schedule appt. bmma 07-26-06 LEVOTHROID 125 MCG TABLET 1 QD - No Longer Active 12/27/05 ok to refill w/[address] westfall df/rma LEVOTHROID 125MCG TABS 1 QD - No Longer Active IMITREX 100 MG TABLET 1 DIRECTE - No Longer Active IMITREX 100MG TABS 1 DIRECTE No Longer Active DIFFERIN 0.1% APPLICS 1 QHS - No Longer Active ZYRTEC 10MG TABS 1 QD - No Longer Active TETRACYCLINE HCL 500MG CAPS 1 BID - No Longer Active SYNTHROID 112MCG TABS 1 QD - No Longer Active HINA 180MG TABS 1 QD No Longer Active Advance Directives Directive Yes / No Effective Date File Name No Information Encounters Encounter Description Practice Location Reason(s) For Visit Diagnoses Date Provider Providers Copied on Encounter [facility], [address], [place], [place], [id number], tel:[phone] [facility] No Information 201 1 Jonel Murphy. [address] [facility], [facility] [address] [place] [address], [id number]. tel:[phone] [facility], [address], [place], [place], [id number], tel:[phone] [facility] HYPOTHYROIDISM NOS 200 7 Conversion Doctor. [address] [place] [address], [address], . [facility], [address], [place], [place], [id number], tel:[phone] [facility] HYPERLIPIDEMIA NEC/NOS 200 7 Jonel Murphy. [address] [facility], [facility] [address] [place] [address], [id number]. tel:[phone] [facility], [address], [place], [place], [address], tel:[phone] [facility] OTHR MIGRNE WO [facility] MGRNSCREEN-DIAB ETES MELLITUSSCREEN LIPOID DISORDERS 5-200 7 Jonel Murphy. [address] [facility], [facility] [address], [place], [place], [id number]. tel:[phone] [facility], [address], [place], [place], [address], tel:[phone] [facility] MALAISE AND FATIGUE NECABSENCE OF MENSTRUATION 7-200 5 Jonel Murphy. [address] [facility], [facility] [address], [place], [place], [id number]. tel:[phone] [facility], [address], [place], [place], [address], [place] tel:[phone] [facility] DERMATITIS NOS Oct-2 4-200 5 Uriel Chawla. [address], [place], [place], [id number], [place]. tel:[phone] [facility], [address], [place], [place], [address], [place] tel:[phone] [facility] ACNE NEC Oct- 4-200 5 Conversion Doctor. [address] [facility], [place], [address], [place]. [facility], [address], [place], [place], [id number], [place] tel:[phone] [facility] PRURITIC DISORDER NOS Oct- 4-200 5 Jonel Murphy. [address] [facility], [facility] [address], [place], [place], [id number]. tel:[phone] [facility], [address], [place], [place], [address], [place] tel:[phone] [facility] DERMAT D/T FOOD INGEST Sep- 9-200 3 Jonel Murphy. [address] [facility], [facility] [address], [place], [place], [address]. tel:[phone] [facility], [address], [place], [place], [address], tel:[phone] [facility] CHR MAXILLARY SINUSITIS Apr-2 5-200 2 Westfall Jeffrey. [address] [facility], [facility] [address], [place], [place], [id number]. tel:[phone] [facility], [address], [place], [place], [id number], [place] tel:[phone] [facility] CELLULITIS OF BUTTOCK Mar- 6-200 0 Jonel Murphy. [address] [facility], [facility] [address], [place], [id number]. tel:[phone] Family History Family Member Type Diagnosis Age At Onset No Information Payers Payer name Insurance type Covered republican ID Authoriza timarquez(s) No Information Social History Type Description Quantity Date Captured [...]
--- OUTSIDE RECORDS SUMMARY | 2024-11-11 01:44 | XMS_ITS | Data Portability ---
Author Organization [facility] Address [address] [place] [address] Care Team Providers Care Regulatory Auditor Name Role Phone YONI KELLEY Primary Care Provider Assessment Encounter Date Assessment Date Assessment LastModified by Organization Details LastModified Time 07/06/2020 07/06/2020 Annual gynecological exam performed. Patient will come back in a year unless there are new symptoms. [email or web address] Not available 07/06/2020 15:04:21 07/11/2021 07/11/2021 Annual gynecological exam performed. Patient will come back in a year unless there are new symptoms. Not available 07/11/2021 11:50:18 07/17/2022 07/17/2022 Annual gynecological exam performed. Patient will come back in a year unless there are new symptoms. Not available 07/17/2022 12:52:52 07/20/2023 07/20/2023 Annual gynecological exam performed. Patient will come back in a year unless there are new symptoms. Not available 07/20/2023 11:13:06 07/21/2024 07/21/2024 Annual gynecological exam performed. Patient will come back in a year unless there are new symptoms. [email or web address] Not available 07/21/2024 12:50:11 Plan of Treatment Reminders Order Date Submit Date Provider Last Modified By Organization Details Last Modified Time Details Appointments [facility] 2024 01:00P M BECKIE ZARATE NP Not available Not available Not available Lab None recorded. Referral None recorded. Procedures None recorded. Surgeries None recorded. Imaging MAMMO, screening , digital, bilateral 12/02/ 2024 12/02/2 024 [facility], [address], [place], [address], 11/06/2024 15:26:03 MAMMO, screening , bilateral 2022 023 [facility], [address], [place], [address], 11/06/2023 15:36:02 MAMMO, screening , bilateral 2021 022 [facility], [address], [place], [address], 10/05/2022 15:31:00 Medication Orders None recorded. Patient TargetsNo targets recorded. Patient Instructions Encounter Date Encounter Id Patient Instructions Last Modified By Organization Details Last Modified Time 07/06/2020 [id number] [email or web address] Not available 15:38:39 Reason for Referral None Reported. Results Created Date Observation Date Name Description Value Unit Range Abnormal Flag Note LastModifiedBy Organization Detail LastModifiedTime 07/11/20 21 07/11/2021 IMAGE GUIDE D PAP AND HPV REGAR DLESS image guided Pap, HPV regardless of Pap result SEE RESULT S BELOW CASE REPOR T: Cytol ogy Gynec ologi edy Repor t Case: [id number] Autho jonatan g Provi hardik: Isac Perez Colle cted: 07/11 1345 RELATIONS COORDINATOR Order ing Locat ion: [place] [facility] Recei tara: 07/12 0112 First Scree n: Strut z, Willi am, CT Rescr een: Wendy Sotomayor ret, CT Speci men: Scree nette Pap - Image d, Cervi x STATE MENT OF ADEQU ACY: Satis facto ry for evalu ation Trans forma tion zone compo nent canno t be defin itive ly ident ified due to the prese nce of atrop hy or other hormo nal potter es FINAL DIAGN OSIS: Negat julita for Intra epith elial Lesio n or Chanelle hinojosa (NIL) . Atrop hic cell vinny rn. Elect lucho jane juanjo d by Wendy Sotomayor ret, CT on 2020 at 8:14 AM ----- ----- ----- ----- ----- ----- ----- ----- ----- ----- ----- ----- ----- ----- ----- ----- ----- ---- HPV RESUL TS: HPV mRNA E6/E7 : No HPV mRNA Detec canelo NOTE: This high risk HPV mRNA assay detec ts fourt een high- risk HPV types (16, 18, 31, 33, 35, 39, 45, 51, 52, 56, 58, 59, 66, 68) witho ut diffe renti ation . COMME NT: Note: This speci men was revie wed by a Cytot echno logis t and/o r Patho logis t (as indic ated in this repor t) after evalu ation using the Thinp rep Imagi ng Syste m. CLINI EDY INFOR MATIO N: Menst rual Statu s: LMP (if appli cable ): Clini edy Histo ry/Pr eviou s Pap: Type of Neopl bulmaro (if appli cable ): Signi fican t Clini edy Findi ngs: Other Histo ry: Hormo marian (if appli cable ): PAP EDUCA JODI L NOTE: The Pap Test is a scree nette test with an inher ent false negat julita rate. Liqui d-bas e sampl ing may decre ase, but will not elimi emilio, false negat julita resul ts. A negat julita resul t does not precl ude the prese nce and/o r devel opmen t of disea se, since the prese nce of abnor mal cells in the sampl e depen ds on the locat ion of the lesio n and sampl ing techn ique. [place] nued regul ar scree nette is the best metho d of cance r preve ntion . If repor canelo cytol ogic findi ng do not corre late with physi edy and/o r histo rical findi ngs, furth er inves tigat ion is recom gilson d, as clini hermelindo tierney nted. Not Available [facility] (Lab) [address], [place], [address], 07/21/2021 09:16:55 09/09/19 21 09/08/2020 MAMMO , scree nette, bilat eral No observ ation record ed. [facility] [address], [place], [address], 09/10/2020 17:47:46 09/12/19 22 09/12/2021 MAMMO , scree nette, bilat eral No observ ation record ed. [facility] [address], [place], [address], 09/16/2021 15:44:33 10/05/19 23 10/05/2022 MAMMO , scree nette, bilat eral No observ ation [facility] ed. [facility] [facility] [address], [place], [address], 07/20/2023 11:23:57 11/06/19 24 11/06/2023 MAMMO , scree nette, bilat eral No observ ation record ed. [facility] [address], [place], [address], 11/28/2023 04:02:16 11/07/19 25 11/06/2024 MAMMO , scree nette, digit al, bilat eral No observ ation record ed. [facility] [address], [place], [address], 11/10/2024 13:11:15 Result Notes Documentation Provider Name and Address Organization Details Recorded Time Pap, Ig + Hr Hpv : ok to file nl no pp la,mendeza Matt Bai null, [facility] 07/26/2021 17:02:37 Mammo, Screening, Bilateral : ok to file nl no pp la,rma Matt lowery, [facility] 09/16/2021 15:44:33 Problems Name Problem SNOMED Code Status Onset Date Resolution Date Notes Provider Name and Address Organization Details Recorded Time Adult health examinati on Completed 201307/10/2021 ROUTINE MEDICAL EXAM;Recor ded Elsewhere: No Locatio n: [facility] rce: EHR Chroni c: N Practice ID: [id number] Billa ble Time: 01:00:00 PM Olga Lidia Espinosa [facility] 21:13:38 Screening for malignant neoplasm of rectum Completed 201407/10/2021 Screening for malignant neoplasms of the rectum;Rec orded Elsewhere: No Locatio n: [facility] rce: EHR Chroni c: N Practice ID: 0001 Billa ble Time: 03:00:00 PM Olga Lidia Espinosa [facility] 21:14:[address] Concept Completed 201607/10/2021 Encntr for obstetrics gynecology md exam (general) (routine) w/o abn findings;R ecorded Elsewhere: No Locatio n: [facility] rce: EHR Chroni c: N Practice ID: [id number] Billa ble Time: 01:30:00 PM Olga Lidia Espinosa [facility] 21:14:16 Specializ ed medical examinati on Completed 201407/10/2021 Gynecologi edy Examinatio n;Recorded Elsewhere: No Locatio n: [facility] rce: EHR Chroni c: N Practice ID: [id number] Billa ble Time: 03:00:00 PM Olga Lidia Espinosa [facility] 21:14:[address] Concept Completed 201507/10/2021 Encntr for general adult medical exam w/o abnormal findings;R ecorded Elsewhere: No Locatio n: [facility] rce: EHR Chroni c: N Practice ID: 0001 Billa ble Time: 03:00:00 PM Olga Lidia [facility] 21:14:10 Screening for malignant neoplasm of cervix Completed 201107/10/2021 Screening for malignant neoplasms of the cervix;Rec orded Elsewhere: No Locatio n: [facility] rce: EHR Chroni c: N Practice ID: [id number] Billa ble Time: 02:00:00 PM Olga Lidia [facility] 21:13:45 Vaginitis and vulvovagi nitis Completed 201307/10/2021 Vaginitis and vulvovagin itis, unspecifie d;Practice ID: 0001 [facility] 21:14:37 Problem Notes None recorded. Procedures Surgical History Date Name Laterality Status Provider Name and Address Organization Details Recorded Time 4 Date of Last Mammogram completed [facility] 07/21/2024 12:54:09 3 Date of Last Pap Smear completed [facility] 07/21/2024 12:52:14 4 Colonoscopy completed [facility] 07/11/2021 11:57:27 6 biopsy of breast completed [facility] 07/11/2021 11:57:39 Imaging Results Imaging Date Name Status LastModified by Organiz ation Details LastModified Time 09/08/2020 MAMMO, screening, bilateral completed [facility] [address], [place], [address], 09/10/2020 17:47:46 09/12/2021 MAMMO, screening, bilateral completed [facility] [address], [place], [address], 09/16/2021 15:44:33 10/05/2022 MAMMO, screening, bilateral completed [email or web address] [facility] [address], [place], [address], 07/20/2023 11:23:57 11/06/2023 MAMMO, screening, bilateral active [facility] [address], [place], [address], 11/28/2023 04:02:16 11/06/2024 MAMMO, screening, digital, bilateral active [facility] [address], [place], [address], 11/10/2024 13:11:15 Procedure Notes None recorded. Medical Equipment None Reported. Allergies Allergen ID Allergen Name Allergen Category Reaction Reaction Severity Criticality Documentation Date Start Date Code Code System Note Provider Name and Address Organization Details Recorded Time 32454 Product containin g penicilli n (product) medicatio n Not available Not available Not available 08/06/2020 78505 8001 SNOMED Comme nt: [facility]at [facility]; Not Available [facility] 0 14:20:39 Medications Name Sig Start Date Stop Date Status Note LastModified by Organization Details LastModified Time silver sulfadiaz ine 1 % topical cream USE 1 APPLICAT ION OF 1.5MM THICKNES S DAILY 07/21 completed Not Available Not Available Not Available clindamyc in HCl 300 mg capsule TAKE 1 CAPSULE BY MOUTH THREE TIMES DAILY 07/20 completed Not Available Not Available Not Available atorvasta tin 10 mg tablet TAKE 1 TABLET BY MOUTH DAILY active Not Available Not Available No t Available rizatript an 10 mg tablet TAKE 1 TABLET BY MOUTH DAILY NEEDED FOR MIGRAINE HEADACHE active Not Available Not Available No t Available folic acid 20 mg capsule 11/22 /2021 completed Prescrib ed Elsewher e: Yes Loca tion: Devi bello [facility] odify By: amkuhmatt Ace neftaly DateTime : 11/27/19 14 10:15:00 AM Not Available Not Available Not Available potassium chloride ER 10 mEq tablet,ex tended release TAKE 2 TABLETS BY MOUTH EVERY DAY 07/21 completed Not Available Not Available Not Available Levoxyl 25 mcg tablet take 1 tablet by oral route every day 07/11 completed Prescrib ed Elsewher e: Yes Loca tion: Devi bello [facility] odify By: yady higginbotham DateTime : 12/04/19 12 02:00:00 PM Not Available Not Available Not Available prednisol one acetate 1 % eye drops,enrique pension INSTILL 1 DROPS IN RIGHT EYE BY OPTHALMI C ROUTE FOUR TIMES DAILY FOR 7 DAYS LESSEN BY 1 DROP EVERY 5 DAYS 07/21 completed Not Available Not Available Not Available methotrex ate sodium 2.5 mg tablet TAKE 8 TABLETS BY MOUTH EVERY 7 DAYS. active Not Available Not Available No t Available doxycycli ne monohydra te 100 mg capsule TAKE 1 CAPSULE BY MOUTH TWICE DAILY 07/20 completed Not Available Not Available Not Available levothyro xine 125 mcg tablet TAKE 1 TABLET BY MOUTH EVERY DAY 07/17 completed Not Available Not Available Not Available Imitrex 6 mg/0.5 mL subcutane ous solution inject by subcutan eous route once; may be repeated 1 hour after the first dose if headache pain returns or increase s in severity ; do not exceed 2 doses within 24 hours 07/17 completed Prescrib ed Elsewher e: Yes Loca tion: Devi bello [facility] odify By: yady higginbotham DateTime : 12/04/19 12 02:00:00 PM Not Available Not Available Not Available folic acid 1 mg tablet TAKE 1 TABLET BY MOUTH EVERY DAY active Not Available Not Available No t Available hydrochlo rothiazid e 25 mg tablet TAKE 1 TABLET BY MOUTH EVERY DAY active Not Available Not Available No t Available lotepredn ol etabonate 0.5 % eye drops,enrique pension 07/20 completed Not Available Not Available Not Available hydroxych loroquine 200 mg tablet TAKE 2 TABLETS BY MOUTH DAILY 07/21 completed Not Available Not Available Not Available methylpre dnisolone 4 mg tablets in a dose pack FOLLOW PACKAGE DIRECTIO NS 07/21 completed Not Available Not Available Not Available Vitamin D2 1,250 mcg (50,000 unit) capsule take 1 capsule by oral route every week 07/21 completed Prescrib ed Elsewher e: Yes Loca tion: Bernadine ace [facility] odify By: lavonne higginbotham DateTime : 11/27/19 14 10:15:00 AM Not Available Not Available Not Available Colon Herbal Cleanser capsule 07/11 completed Prescrib ed Elsewher e: Yes Loca tion: [facility] odify By: yady higginbotham DateTime : 12/04/19 12 02:00:00 PM Not Available Not Available Not Available levothyro xine 112 mcg tablet TAKE 1 TABLET BY MOUTH DAILY active Not Available Not Available No t Available Vitamins and Minerals tablet active Prescrib ed Elsewher e: Yes [facility]: yady higginbotham DateTime : 12/04/19 12 02:00:00 PM Not Available Not Available Not Available Methotrex ate (Anti-Rhe umatic) 2.5 mg tablets in a dose pack take 2 tablet by oral route every week 07/11 completed Prescrib ed Elsewher e: Yes [facility] By: lavonne higginbotham DateTime : 11/27/19 14 10:15:00 AM Not Available Not Available Not Available Relpax 20 mg tablet take 1 tablet by oral route ; if headache returns, the dose may be repeated after 2 hours, but no more than two doses should be given within a 24-hour period. 07/11 completed Prescrib ed Elsewher e: Yes [facility] By: yady higginbotham DateTime : 12/04/19 12 02:00:00 PM Not Available Not Available Not Available potassium acetate 07/11 completed Not Available Not Available Not Available methotrex ate 07/11 completed Not Available Not Available Not Available hydrochlo rothiazid e 07/11 completed Not Available Not Available Not Available hydroxych loroquine 07/11 completed Not Available Not Available Not Available levofloxa ricky 07/11 completed Not Available Not Available Not Available Tirosint 13 mcg capsule take 1 capsule by oral route every day 07/11 completed Prescrib ed Elsewher e: Yes Loca tion: [facility] odify By: lavonne daviser DateTime : 11/27/19 14 10:15:00 AM Not Available Not Available Not Available Lotemax 0.5 % eye gel drops 07/20 completed Not Available Not Available Not Available hydroquin one (bulk) 100 % crystals 07/17 completed Prescrib ed Elsewher e: Yes Loca tion: [facility] odify By: zenon ingramunter DateTime : 02/27/20 14 01:00:00 PM Not Available Not Available Not Available potassium chloride ER 20 mEq tablet,ex tended release TAKE 1 TABLET BY MOUTH DAILY active Not Available Not Available No t Available Vitals Date Recorded Body height Body mass index (BMI) Body weight Provider Name and Address Organization Details Last Updated DateTime 07/11/2021 170.18 cm 33.4 kg/m2 90368.17 g Olga Lidia Espinosa [facility] 07/11/2021 11:50:45 Date Recorded Systolic blood pressure Diastolic blood pressure Provider Name and Address Organization Details Last Updated DateTime 07/11/2021 126 mm[Hg] 76 mm[Hg] Nina Luciano DEWAYNE- [address], [place], [address], [facility] 07/27/2021 23:12:30 Date Recorded Body height Body mass index (BMI) Body weight Provider Name and Address Organization Details Last Updated DateTime 07/17/2022 170.18 cm 32 kg/m2 98135.84 g Olga Lidia Espinosa [facility] 07/17/2022 12:57:28 Date Recorded Systolic blood pressure Diastolic blood pressure Provider Name and Address Organization Details Last Updated DateTime 07/17/2022 122 mm[Hg] 76 mm[Hg] Nina Luciano [facility] [address], [place], [address], [facility] 07/18/2022 11:42:03 Date Recorded Body weight Provider Name an d Address Organization Details Last Updated DateTime 07/20/2023 47807.81 g Olga Lidia Johnsonse [facility] 07/20/2023 11:13:30 Date Recorded Systolic blood pressure Diastolic blood pressure Provider Name and Address Organization Details Last Updated DateTime 07/20/2023 118 mm[Hg] 76 mm[Hg] Nina Luciano, [facility] [address], [place], [address], [facility] 07/20/2023 11:23:15 Date Recorded Body height Body mass index (BMI) Body weight Systolic blood pressure Diastolic blood pressure Provider Name and Address Organization Details Last Updated DateTime 07/21/2024 170.18 cm 32 kg/m2 19399.84 g 108 mm[Hg] 70 mm[Hg] Dilcia Nichols [facility] 4 14:27:45 Date Recorded Body height Body mass index (BMI) Body weight Systolic blood pressure Diastolic blood pressure Provider Name and Address Organization Details Last Updated DateTime 07/06/2020 170.18 cm 41.3 kg/m2 538520.3 9 g 128 mm[Hg] 86 mm[Hg] April Walton [facility] 0 15:10:45 Social History Question Answer Notes LastModified by Organizat ion Details LastModified Time Tobacco Smoking Status Never Smoker Olga Lidia lowery, [facility] 07/10/2021 21:26:29 What Is Your Level Of Alcohol Consumption? Occasional Information not available 07/10/2021 Are You Blind Or Do You Have Difficulty Seeing? No Information not available 07/10/2021 What Is Your Level Of Caffeine Consumption? Occasional Information not available 07/10/2021 Are You Deaf Or Do You Have Serious Difficulty Hearing? No Information not available 07/10/2021 What Type Of Diet Are You Following? REGULAR Information not available 07/10/2021 Do You Use Your Seat Belt Or Car Seat Routinely? Yes Information not available 07/10/2021 Do You Have Smoke And Carbon Monoxide Detectors In Your Home? Yes Information not available 07/10/2021 Do You Feel Stressed (tense, Restless, Nervous, Or Anxious, Or Unable To Sleep At Night)? [id number] Information not available 07/10/2021 Do You Use Any Illicit Or Recreational Drugs? No Information not available 07/10/2021 Do You Use Sunscreen Routinely? Yes Information not available 07/10/2021 Sex: Unknown Functional Status Question Answer Note LastModified by Organizat ion Details LastModified Time Do you have difficulty walking or climbing stairs? No Information not available 07/20/2023 Are you able to walk? YESWOREST Information not available 07/10/2021 Are you able to care for yourself? Yes Information not available 07/20/2023 Do you have difficulty dressing or bathing? No Information not available 07/20/2023 What is your exercise level? Occasional Information not available 07/10/2021 Mental Status None recorded. Family History Relationship Description Onset Age of this Age Resolved Age Notes LastModified by Organization Details LastModified Time Father Heart disease Not available 2020 21:15:58 Mother Anemia Not available 21:16:31 Mother Disorder of thyroid gland Not available 2020 21:16:53 Paternal Grandmother Diabetes mellitus Not available 2020 21:17:24 Medical History Condition Response Arthritis Y Thyroid Problems Y Gynecological History Statement/Question Response Abnormal Pap Y Date of Last Mammogram 11/06/2023 STIs/STDs N HPV Vaccine N 13 Current Control Method Menopause If Post Menopausal, Age at Menopause 46 Sexually Active? Y Date of DEXA bone scan Age of first menstrual cycle 12 Date of Last Pap Smear 07/20/2023 Sexual Problems? N LMP Unknown Obstetrics History GPAL:G 5 P 0 0 1 4 Type Value Induced 1 Living 4 Total 5 Past Encounters Encounter ID Performer Location Encounter Start Date Encounter Closed Date Diagnosis/Indication Diagnosis SNOMED-CT Code Diagnosis ICD10 Code Diagnosis Note [id number] Nina Luciano , [facility] [address],[facility] [place] [address] 07/06/2020 15:01:50 07/06/2020 16:56:09 Gynecologic examination 86962813 Z01.419 Take Calcium with Vitamin D 12-1500mg daily. Do monthly self breast exams. It is advised to get annual flu shot in the fall and she could obtain at [facility]. If you haven't received the Tdap vaccine in the last 10 years you should obtain one as well. Have mammogram yearly, bone density every 2-3 years and colonoscop y every 5-10 years depending on findings and history. Engage in daily exercise of low impact aerobic exercise 45-60 minutes 4-5 times weekly. Avoid tobacco and illicit drugs as well as using moderation with alcohol intake less than 1-2 8 oz beverages daily. This lifestyle behavior pattern will lead to less health conditions and longer life span. If BMI greater than 25 weight watchers or dietary consult advised. Questions have been answered. 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 Mammo ordered No other issues or concerns. [id number] Nina Luciano , [facility] [address] [address] 07/11/2021 11:32:00 07/12/2021 19:31:55 Gynecologic examination 82859405 Z01.419 Take Calcium with Vitamin D 12-1500mg daily. Do monthly self breast exams. It is advised to get annual flu shot in the fall and she could obtain at [facility]. If you haven't received the Tdap vaccine in the last 10 years you should obtain one as well. Have mammogram yearly, bone density every 2-3 years and colonoscop y every 5-10 years depending on findings and history. Engage in daily exercise of low impact aerobic exercise 45-60 minutes 4-5 times weekly. Avoid tobacco and illicit drugs as well as using moderation with alcohol intake less than 1-2 8 oz beverages daily. This lifestyle behavior pattern will lead to less health conditions and longer life span. If BMI greater than 25 weight watchers or dietary consult advised. Questions have been answered. 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 Mammo ordered No other issues or concerns.D ecline need std screenColo n screen UTDDexa n/a [id number] Nina Luciano [facility] [address] [address] 07/17/2022 12:42:19 07/18/2022 16:37:42 Gynecologic examination 34663937 Z01.419 Z11.51 Take Calcium with Vitamin D 12-1500mg daily. Do monthly self breast exams. It is advised to get annual flu shot in the fall and she could obtain at [facility] or [facility] care clinic. If you haven't received the Tdap vaccine in the last 10 years you should obtain one as well. Have mammogram yearly, bone density every 2-3 years and colonoscop y every 5-10 years depending on findings and history. Engage in daily exercise of low impact aerobic exercise 45-60 minutes 4-5 times weekly. Avoid tobacco and illicit drugs as well as using moderation with alcohol intake less than 1-2 8 oz beverages daily. This lifestyle behavior pattern will lead to less health conditions and longer life span. If BMI greater than 25 weight watchers or dietary consult advised. Questions have been answered. Patient appears to understand instructio ns, but if you have any further questions call or respond to this email Pap/hpv due q3yrs per asccp unless otherwise indicatedS TD Screen declinedGe netic Screen discussedC olon Screen UTD PCPDexa Screen naRoutine Labs PCPMammo ordered Screening mammography 24 [id number] Z12.31 [id number] Nina Luciano [facility] [address] [address] 07/20/2023 11:09:14 07/21/2023 09:39:03 Gynecologic examination [id number] Z01.419 Z11.51 Take Calcium with Vitamin D 12-1500mg daily. Do monthly self breast exams. It is advised to get annual flu shot in the fall and she could obtain at [facility] or [facility] clinic. If you haven't received the Tdap vaccine in the last 10 years you should obtain one as well. Have mammogram yearly, bone density every 2-3 years and colonoscop y every 5-10 years depending on findings and history. Engage in daily exercise of low impact aerobic exercise 45-60 minutes 4-5 times weekly. Avoid tobacco and illicit drugs as well as using moderation with alcohol intake less than 1-2 8 oz beverages daily. This lifestyle behavior pattern will lead to less health conditions and longer life span. If BMI greater than 25 weight watchers or dietary consult advised. Questions have been answered. Patient appears to understand instructio ns, but if you have any further questions call or respond to this email Pap/hpv sentSTD Screen declinedGe netic Screen discussedC olon Screen UTD PCPDexa Screen naRoutine Labs PCPMammo ordered Screening mammography 24 [id number] BECKIE ZARATE, DEWAYNE [place] [address] [address] 07/21/2024 14:21:58 07/21/2024 14:52:13 Gynecologic examination [id number] Z01.419 Annual gynecologi edy exam performed. Patient will come back in a year unless there are new symptoms. Suggest Calcium with Vitamin D if not eating in diet. Patient advised to get annual flu shot. Recommend yearly physicals and perform monthly breast exams. Genetic testing is available for patients with family history of cancer. Engage in safe sexual practices, use condoms. Encouraged to have daily exercise. Avoid tobacco and illicit drugs, moderation of alcohol. If BMI greater than 25 dietary consult advised. If you have any questions please call or email. mammogram- order given, pt to schedule colon cancer screening - PCP ordered - pt has scheduled in September 04, 2024 DEXA scan- pt has order from [facility] Pap smear- UTD (2022- WNL), will repeat per ASCCP guidelines laboratory evaluation - PCP STI testing - declined Screening mammography 24 [id number] Z12.31 Health Concerns Section Related Observation LastModified by Organization Detai ls LastModified Time None Recorded Concern Status LastModified by Organization Details LastModified Time None Recorded Advance Directives Directive None Recorded Payers Encounter Date Sequence Insurance Name Policy Number Policy Rosales Covered Member ID Rosales Member ID Guarantor Name 07/06/2020 1 [facility] (PPO) [id number] Ceferino Valencia [id number] 07/11/2021 1 [facility] (PPO) [id number] Ceferino Valencia [id number] 07/17/2022 1 [employer] [id number] Ceferino Valencia [id number] 07/20/2023 1 [place] [id number] Ceferino Jainhr [id number] 07/21/2024 1 [place] [id number] Ceferino Valencia [id number] Notes Date Note Type Note Provider Name and Address Organization Details Recorded Time 07/06/2020 text/html Annual GYNReport ed bypatient.History: no gynecologic complaints Menstrual cycle:Postmenopaus e Urinary symptoms:No hematuria; No incontinence Vulva:No genital lesion Vagina:Normal vaginal discharge Breast:No breast pain; No breast lump; No nipple discharge Sexual complaints:No sexual complaints; No pain during intercourse; Normal libido Menopausal Symptoms:No menopausal symptoms; Normal vaginal lubrication Psychological symptoms:No depression; No anxiety; No PMDD Preventive measures:Encourage self breast examination; Encourage regular exercise; Encourage no tobacco use; Encourage regular mammograms starting age 40; Followed with Q3 year pap smear and high risk HPV typing; Needs to schedule mammogram; Up to date on colonoscopy screening Nina Luciano, [facility] [address], [place], [address], [facility] 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 Post-MenopausalRep orted bypatient.Menopaus al Symptoms:no menopausal symptoms; normal vaginal lubrication Vaginal Bleeding:history of menopause having occurred; no history of post menopausal bleeding Urinary Symptoms:no hematuria; no incontinence; no nocturia; no urinary frequency Vulva:no genital lesion; no vulvar atrophy Vagina:normal vaginal discharge; no vaginal atrophy Breast:no breast lump; no nipple discharge; no breast pain Sexual Complaints:no sexual complaints Psychological Symptoms:no depression; no anxiety Preventive Measures:encourage regular mammograms starting age 40; encourage self breast examination; encourage regular exercise; encourage no tobacco use; needs to schedule mammogram; history of recent colonoscopy [facility] [address], [place], [address], [facility] 07/27/2021 23:14:24 07/17/2022 text/html Annual Electrician Helper Powerhouse Post-MenopausalRep orted bypatient.Menopaus al Symptoms:no menopausal symptoms; normal vaginal lubrication Vaginal Bleeding:history of menopause having occurred; no history of post menopausal bleeding Urinary Symptoms:no hematuria; no incontinence; no nocturia; no urinary frequency Vulva:no genital lesion; no vulvar atrophy Vagina:normal vaginal discharge; no vaginal atrophy Breast:no breast lump; no nipple discharge; no breast pain Sexual Complaints:no sexual complaints Psychological Symptoms:no depression; no anxiety Preventive Measures:encourage regular mammograms starting age 40; encourage self breast examination; encourage regular exercise; encourage no tobacco use; needs to schedule mammogram; history of recent colonoscopy [facility] [address], [place], [address], [facility] 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 Post-MenopausalRep orted bypatient.Menopaus al Symptoms:no menopausal symptoms; normal vaginal lubrication Vaginal Bleeding:history of menopause having occurred; no history of post menopausal bleeding Urinary Symptoms:no hematuria; no incontinence; no nocturia; no urinary frequency Vulva:no genital lesion; no vulvar atrophy Vagina:normal vaginal discharge; no vaginal atrophy Breast:no breast lump; no nipple discharge; no breast pain Sexual Complaints:no sexual complaints Psychological Symptoms:no depression; no anxiety Preventive Measures:encourage regular mammograms starting age 40; encourage self breast examination; encourage regular exercise; encourage no tobacco use; needs to schedule mammogram; history of recent colonoscopy [facility] Luc[facility] [address], [place], [address], [facility] 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 Post-MenopausalRep orted bypatient.Menopaus al Symptoms:no menopausal symptoms; normal vaginal lubrication Vaginal Bleeding:history of menopause having occurred; no history of post menopausal bleeding Urinary Symptoms:no hematuria; no incontinence; no nocturia; no urinary frequency Vulva:no genital lesion;atrophic vulva Vagina:normal vaginal discharge; no vaginal atrophy Breast:no breast lump; no nipple discharge; no breast pain Sexual Complaints:no sexual complaints Psychological Symptoms:no depression; no anxiety Preventive Measures:encourage regular mammograms starting age 40; encourage self breast examination; encourage regular exercise; encourage no tobacco use Patient presents for annual well woman exam. Patient denies concerns today. BECKIE ZARATE, DEWAYNE [address], [place], [address], [facility] 07/21/2024 14:50:38 OBGyn Episode Ob Episode Information Episode Created Date Number of Fetuses Patient Bloodtype Patient rh Status Prepregnancy Weight lbs Domestic Partner Domestic Partner Phone Father Name Tank Hoop Bender Status 07/11/20 21 1 CLOSED Fetus Data First Name Last Name Admitted to NICU Weight (g) Sex Living Outcome Pediatric Complications Fetus ID Race Codes Race Delivery Type [id number] Vaginal Delivery Onel Calculation Initial Onel Date Initial Exam Date Initial Exam Provider Initial Ultrasound Date Last Menstrual Period Date Ultra Sound Weeks Gestation 0 Eighteen To Twenty Week Onel Update Ultra Sound Date Fundal Height At Umbil Quickening Date Ultra Sound Latest Weeks Gestation Final Onel Confirmed By Final Onel Confirmed Date Final Onel Date Ultra Sound Latest Days Gestation 0 0 Menstrual History Last Menstrual Date Menses Monthly On Bcp Conception Prior Menses Frequency Hcg Plus Date Menarche Onset Age Delivery Information Delivery Date Delivery Type Labor Anesthesia Weeks Gestation Incision Type Labor Labor Length Hrs Delivered By Post Complications Tubal Sterilization Discharge Date Comments 9 Discharge Information Feeding Method Contraceptive Method Maternal HG B and HCT Levels Ob Episode Information Episode Created Date Number of Fetuses Patient Bloodtype Patient rh Status Prepregnancy Weight lbs Domestic Partner Domestic Partner Phone Father Name Tank Hoop Bender Status 07/11/20 21 1 CLOSED Fetus Data First Name Last Name Admitted to NICU Weight (g) Sex Living Outcome Pediatric Complications Fetus ID Race Codes Race Delivery Type [id number] Vaginal Delivery Onel Calculation Initial Onel Date Initial Exam Date Initial Exam Provider Initial Ultrasound Date Last Menstrual Period Date Ultra Sound Weeks Gestation 0 Eighteen To Twenty Week Onel Update Ultra Sound Date Fundal Height At Umbil Quickening Date Ultra Sound Latest Weeks Gestation Final Onel Confirmed By Final Onel Confirmed Date Final Onel Date Ultra Sound Latest Days Gestation 0 0 Menstrual History Last Menstrual Date Menses Monthly On Bcp Conception Prior Menses Frequency Hcg Plus Date Menarche Onset Age Delivery Information Delivery Date Delivery Type Labor Anesthesia Weeks Gestation Incision Type Labor Labor Length Hrs Delivered By Post Complications Tubal Sterilization Discharge Date Comments 5 Discharge Information Feeding Method Contraceptive Method Maternal HG B and HCT Levels Ob Episode Information Episode Created Date Number of Fetuses Patient Bloodtype Patient rh Status Prepregnancy Weight lbs Domestic Partner Domestic Partner Phone Father Name Tank Hoop Bender Status 07/11/20 21 1 CLOSED Fetus Data First Name Last Name Admitted to NICU Weight (g) Sex Living Outcome Pediatric Complications Fetus ID Race Codes Race Delivery Type [id number] Vaginal Delivery Onel Calculation Initial Onel Date Initial Exam Date Initial Exam Provider Initial Ultrasound Date Last Menstrual Period Date Ultra Sound Weeks Gestation 0 Eighteen To Twenty Week Onel Update Ultra Sound Date Fundal Height At Umbil Quickening Date Ultra Sound Latest Weeks Gestation Final Onel Confirmed By Final Onel Confirmed Date Final Onel Date Ultra Sound Latest Days Gestation 0 0 Menstrual History Last Menstrual Date Menses Monthly On Bcp Conception Prior Menses Frequency Hcg Plus Date Menarche Onset Age Delivery Information Delivery Date Delivery Type Labor Anesthesia Weeks Gestation Incision Type Labor Labor Length Hrs Delivered By Post Complications Tubal Sterilization Discharge Date Comments 6 Discharge Information Feeding Method Contraceptive Method Maternal HG B and HCT Levels Ob Episode Information Episode Created Date Number of Fetuses Patient Bloodtype Patient rh Status Prepregnancy Weight lbs Domestic Partner Domestic Partner Phone Father Name Tank Hoop Bender Status 07/11/20 21 1 CLOSED Fetus Data First Name Last Name Admitted to NICU Weight (g) Sex Living Outcome Pediatric Complications Fetus ID Race Codes Race Delivery Type [id number] Vaginal Delivery Onel Calculation Initial Onel Date Initial Exam Date Initial Exam Provider Initial Ultrasound Date Last Menstrual Period Date Ultra Sound Weeks Gestation 0 Eighteen To Twenty Week Onel Update Ultra Sound Date Fundal Height At Umbil Quickening Date Ultra Sound Latest Weeks Gestation Final Onel Confirmed By Final Onel Confirmed Date Final Onel Date Ultra Sound Latest Days Gestation 0 0 Menstrual History Last Menstrual Date Menses Monthly On Bcp Conception Prior Menses Frequency Hcg Plus Date Menarche Onset Age Delivery Information Delivery Date Delivery Type Labor Anesthesia Weeks Gestation Incision Type Labor Labor Length Hrs Delivered By Post Complications Tubal Sterilization Discharge Date Comments 1 Discharge Information Feeding Method Contraceptive Method Maternal HG B and HCT Levels Ob Episode Information Episode Created Date Number of Fetuses Patient Bloodtype Patient rh Status Prepregnancy Weight lbs Domestic Partner Domestic Partner Phone Father Name Tank Hoop Bender Status 07/11/20 21 1 CLOSED Fetus Data First Name Last Name Admitted to NICU Weight (g) Sex Living Outcome Pediatric Complications Fetus ID Race Codes Race Delivery Type , Induced [id number] Onel Calculation Initial Onel Date Initial Exam Date Initial Exam Provider Initial Ultrasound Date Last Menstrual Period Date Ultra Sound Weeks Gestation 0 Eighteen To Twenty Week Onel Update Ultra Sound Date Fundal Height At Umbil Quickening Date Ultra Sound Latest Weeks Gestation Final Onel Confirmed By Final Onel Confirmed Date Final Onel Date Ultra Sound Latest Days Gestation 0 0 Menstrual History Last Menstrual Date Menses Monthly On Bcp Conception Prior Menses Frequency Hcg Plus Date Menarche Onset Age Delivery Information Delivery Date Delivery Type Labor Anesthesia Weeks Gestation Incision Type Labor Labor Length Hrs Delivered By Post Complications Tubal Sterilization Discharge Date Comments 9 Discharge Information Feeding Method Contraceptive Method Maternal HG B and HCT Levels
--- OUTSIDE RECORDS SUMMARY | 2024-11-11 01:44 | XMS_ITS | Encounter Summary ---
Author Organization [facility] Address [address] [place] [address] Phone Care Team Providers Care Supervisor Specialty Plant Name Role Phone Jignesh Chino DO Primary Care Provider [phone] Encounter Details Date Type Department Care Team (Late st Contact Info) Description 04/05/2021 Orders Only [facility] Scanning, Provider Social History Tobacco Use Types Packs/Day Years Used Date Smoking Tobacco: Never Smokeless Tobacco: Never Comments Unknown Sex and Gender Information Value Date Recorded Sex Assigned at Not on file Legal Sex 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 Gender Identity Not on file Sexual Orientation Not on file documented as of this encounter Plan of Treatment Not on file documented as of this encounter Procedures Procedure Name Priority Date/Time Associated Diagnosis Comments SCAN - RADIOLOGY/IMAGING 04/05/2021 documented in this encounter Results * SCAN - RADIOLOGY/IMAGING (04/05/2021) Anatomical Region Laterality Modality Other us Provider Scanning Edited Result - Final documented in this encounter Visit Diagnoses Not on filedocumented in this encounter Care Teams Supervisor Specialty Plant Relationship Specialty Start Date End Date Jignesh Chino DO PCP - General 12/06/16 documented as of this encounter
--- OUTSIDE RECORDS SUMMARY | 2024-11-11 01:44 | XMS_ITS | Encounter Summary ---
Author Organization [facility] Address [address] [place] [address] Phone Care Team Providers Care Stud Beef Cattle Farmer Name Role Phone Jignesh Chino DO Primary Care Provider [phone] Encounter Details Date Type Department Care Team (Late st Contact Info) Description 12/10/2017 Orders Only [facility] Scanning, Provider Social History Tobacco Use Types Packs/Day Years Used Date Smoking Tobacco: Never Comments Unknown Sex and Gender Information Value Date Recorded Sex Assigned at Not on file Legal 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 Gender Identity Not on file Sexual Orientation Not on file documented as of this encounter Plan of Treatment Not on file documented as of this encounter Procedures Procedure Name Priority Date/Time Associated Diagnosis Comments SCAN - RADIOLOGY/IMAGING 12/10/2017 documented in this encounter Results * SCAN - RADIOLOGY/IMAGING (12/10/2017) Anatomical Region Laterality Modality Other us Provider Scanning Final Result documented in this encounter Visit Diagnoses Not on filedocumented in this encounter Care Teams Stud Beef Cattle Farmer Relationship Specialty Start Date End Date Jignesh Chino DO PCP - General 12/06/16 documented as of this encounter
--- OUTSIDE RECORDS SUMMARY | 2024-11-11 01:44 | XMS_ITS | Clinical Summary ---
Author Organization [facility] Address [address] [place] [id number] Phone Care Team Providers Care Laborer Prestressed Concrete Name Role Phone JanellfatumaJignesh wahl DO Primary Care Provider [phone] Allergies Active Allergy Reactions Criticality Noted Date Comments Penicillins 12/04/2020 Medications Medication Sig Dispensed Refills Start Date End Date Status methotrexate 2.5 MG tablet 8 tabs weekly since 03/31/2015 Active cycloSPORINE (RESTASIS) 0.05 % ophthalmic emulsion 12/21/2014 Activ e folic acid (FOLVITE) 1 MG tablet 12/21/2014 Active cholecalciferol (VITAMIN D-3) 2000 units capsule 12/21/2014 Active hydroxychloroquine (PLAQUENIL) 200 MG tablet 1 bid 12/21/2014 Active aspirin-acetaminoph en-caffeine (EXCEDRIN MIGRAINE) 250-250-65 MG per tablet TAKE 1 TABLET 3 TIMES DAILY NEEDED. 04/15/2013 Active Fluzone Quadrivalent 0.5 ML suspension prefilled syringe PHARMACY ADMINISTERED 05/20/2020 Active atorvastatin (LIPITOR) 10 MG tablet Take 10 mg by mouth 1 (one) time each day 05/04/2020 Active UNABLE TO FIND Med Name: lemonade 1qt per day Active eletriptan (Relpax) 20 MG tablet Relpax 20 mg tablet take 1 tablet by oral route ; if headache returns, the dose may be repeated after 2 hours, but no more than two doses should be given within a 24-hour period. Active loteprednol (LOTEMAX) 0.5 % ophthalmic suspension 11/19/2020 Active potassium chloride (KLOR-CON) 10 MEQ CR tablet TAKE 1 TABLET BY MOUTH EVERY DAY 90 tablet 3 07/25/2021 Active hydroCHLOROthiazide (HYDRODIURIL) 25 MG tablet TAKE 1 TABLET BY MOUTH EVERY DAY 90 tablet 3 03/24/2022 Active levothyroxine (SYNTHROID) 112 MCG tablet Take 112 mcg by mouth 1 (one) time each day 06/05/2022 Active Active Problems Problem Noted Date Diagnosed Date Raynaud's disease without gangrene 06/07/2018 Abdominal pain 08/30/2016 Rheumatoid arthritis 03/31/2015 Calculus of kidney 12/21/2014 Immunizations Name Administration Dates Next Due Influenza TIV (IM) 05/20/2020,06/09/2019 Family History Medical History Relation Comments Heart disease Father Kidney disease Neg Hx Kidney stone Neg Hx Relation Status Comments Father Social History Tobacco Use Types Packs/Day Years [...] Sign Reading Time Taken Comments Blood Pressure 118/80 07/17/2022 11:00 AM WIND DEVELOPMENT DIRECTOR Pulse 72 07/17/2022 11:00 AM WIND DEVELOPMENT DIRECTOR Temperature 35.5 C (95.9 F) 07/17/2022 11:00 AM WIND DEVELOPMENT DIRECTOR Respiratory Rate - - Oxygen Saturation - - Inhaled Oxygen Concentration - - Weight 92.5 kg (204 lb) 07/17/2022 11:00 AM WIND DEVELOPMENT DIRECTOR Height 172.7 cm (5' 8 ) 07/17/2022 11:00 AM WIND DEVELOPMENT DIRECTOR Body Mass Index 31.02 07/17/2022 11:00 AM WIND DEVELOPMENT DIRECTOR Plan of Treatment Health Maintenance Due Date Last Done Comments Pneumococcal PPSV23 Highest Risk Adult (1 of 3 - PCV13) 1983 Influenza Vaccine (#1) 2024 05/20/2020, 2018 Care Teams Laborer Prestressed Concrete Relationship Specialty Start Date End Date Jignesh Chino DO [address] [place] [address] PCP - General Internal Medicine 11/06/18
[2024-11-11 11:33] VITALS: BP 132/82; PULSE 84; RESP 19; TEMP 36.2; O2SAT 99
[2024-11-11] MEDS: LACTATED RINGERS 1,000 ML 150 ML IV CONT (11:47)
--- NOTE | 2024-11-11 11:55 | P.PNAN_ITS ---
Anes - Initial Pre Proc Eval Procedure: Operation Date: 11/11/24 12:30 Proposed Procedures p Esophagogastroduodenoscopy & Colonoscopy - Tejinder Walls MD s [facility] Hemorrhoid Treatment - Tejinder Walls MD Date/Time: 11/11/24 11:55 Surgeon: Tejinder Walls MD Pre Op Diagnosis: GERD/personal Hx Polyps/Hemorroids Patient Data Age: 59 Gender: F Height: 1.7 m Weight: 88.9 kg Last Vital Signs Temp 36.2 C L 11/11/24 11:33 Pulse 84 11/11/24 11:33 Resp 19 11/11/24 11:33 BP 132/82 11/11/24 11:33 Pulse Ox 99 11/11/24 11:33 O2 Del Method Room Air 11/11/24 11:33 Allergies Allergy/AdvReac Type Severity Reaction Status Date / Time latex Allergy Mild Itching Verified 11/11/24 11:32 Home Medications ?Medication ?Instructions ?Recorded ?Confirmed ?Type Lactobacillus rhamnosus GG 20 1 cell PO DAILY 07/31/19 11/11/24 History billion cell capsule (Probiotic Digestive Care) folic acid 1 mg tablet 1 mg PO DAILY 07/31/19 11/11/24 History milk thistle 175 mg tablet 250 mg PO BID 07/31/19 11/11/24 History ascorbic acid (vitamin C) 250 mg 250 mg PO DAILY 03/10/21 11/11/24 History tablet potassium chloride 20 mEq 20 meq PO DAILY #180 tabs 04/11/23 11/11/24 Rx tablet,extended release hydrochlorothiazide 25 mg tablet See Rx Instructions .Route 05/19/24 11/11/24 Rx .COMPLEX #90 tabs cholecalciferol (vitamin D3) 250 250 mcg PO 3XW 06/20/24 11/11/24 History mcg (10,000 unit) capsule rizatriptan 10 mg tablet 10 mg PO DAILY PRN migraine 06/20/24 11/11/24 Rx headache #27 tabs methotrexate sodium 2.5 mg tablet 2.5 mg PO WEEKLY 08/21/24 10/24/24 History levothyroxine 112 mcg tablet 112 mcg PO DAILY #90 tabs 08/22/24 11/11/24 Rx atorvastatin 10 mg tablet See Rx Instructions .Route 09/22/24 11/11/24 Rx .COMPLEX #90 tabs Patient hx anesthesia problems: none Family hx anesthesia problems: none Results Review: All pre-operative results and documents have been reviewed as part of the pre- operative evaluation. [facility] Past Medical History Medical History Hypothyroidism GERD (gastroesophageal reflux disease) Hyperlipidemia Rheumatoid arthritis Migraine Family History Family History Sibling Patient's brother is in good health Mother Hypothyroidism Social History Social History Social History: caffeine-coffee Smoking status: Never smoker Alcohol intake: never Substance use: never Substance use type: does not use Do You Feel Safe in your Home?: Yes Lack of Transportation: No Lack of Food: Never True Current Housing: I Have Housing Concerned About Future Housing: No Difficulty Paying Gas/Electric Bills: No Difficulty Paying for Meds: No Currently Unemployed: No Education: Associate Degree Difficulty w/ Childcare or Family Care: No Living arrangements: with family Gender identity (if verbalized by the patient): Female Spiritual care concerns: No Anes - Eval Final PreProcedure Day of Procedure 11/11/24 11:55 Patient weight: obese Heart: regular rate and rhythm Lungs: clear to auscultation Airway: Mallampati scale class II Neurological: alert and oriented Last oral intake: >/= 8 hours ASA classification: III Emergent: no Anesthetic plan: proceed Anesthesia type and monitoring: general GIVS and standard monitoring Results Review: All pre-operative results and documents have been reviewed as part of the pre- operative evaluation. Informed Consent: The patient's anesthetic plan and its attendant risks and benefits were discussed with the patient/family/POA. Questions were solicited and answers provided to the satisfaction of the patient/family/POA.
--- NOTE | 2024-11-11 12:28 | PM.HPGS ---
History of Present Illness History of Present Illness Consent: Risks, benefits, and alternatives have been discussed and questions answered. Patient agrees to proceed with procedure. Chief complaint: GERD/personal Hx Polyps/Hemorroids Narrative: Paula Valencia is a 59 year old female here for first EGD, h/o chronic GERD on nexium, last colonoscopy 2018 and previously had polyp Review of Systems Review of Systems: All systems reviewed & are unremarkable except as noted in HPI and below PMFSH Past Medical History Medical History Hypothyroidism GERD (gastroesophageal reflux disease) Hyperlipidemia Rheumatoid arthritis Migraine Family History Family History Sibling Patient's brother is in good health Mother Hypothyroidism Social History Social History Social History: caffeine-coffee Smoking status: Never smoker Alcohol intake: never Substance use: never Substance use type: does not use Do You Feel Safe in your Home?: Yes Lack of Transportation: No Lack of Food: Never True Current Housing: I Have Housing Concerned About Future Housing: No Difficulty Paying Gas/Electric Bills: No Difficulty Paying for Meds: No Currently Unemployed: No Education: Associate Degree Difficulty w/ Childcare or Family Care: No Living arrangements: with family Gender identity (if verbalized by the patient): Female Spiritual care concerns: No Meds Home Medications and Allergies Home Medications ?Medication ?Instructions ?Recorded ?Confirmed ?Type Lactobacillus rhamnosus GG 20 1 cell PO DAILY 07/31/19 11/11/24 History billion cell capsule (Probiotic Digestive Care) folic acid 1 mg tablet 1 mg PO DAILY 07/31/19 11/11/24 History milk thistle 175 mg tablet 250 mg PO BID 07/31/19 11/11/24 History ascorbic acid (vitamin C) 250 mg 250 mg PO DAILY 03/10/21 11/11/24 History tablet potassium chloride 20 mEq 20 meq PO DAILY #180 tabs 04/11/23 11/11/24 Rx tablet,extended release hydrochlorothiazide 25 mg tablet See Rx Instructions .Route 05/19/24 11/11/24 Rx .COMPLEX #90 tabs cholecalciferol (vitamin D3) 250 250 mcg PO 3XW 06/20/24 11/11/24 History mcg (10,000 unit) capsule rizatriptan 10 mg tablet 10 mg PO DAILY PRN migraine 06/20/24 11/11/24 Rx headache #27 tabs methotrexate sodium 2.5 mg tablet 2.5 mg PO WEEKLY 08/21/24 10/24/24 History levothyroxine 112 mcg tablet 112 mcg PO DAILY #90 tabs 08/22/24 11/11/24 Rx atorvastatin 10 mg tablet See Rx Instructions .Route 09/22/24 11/11/24 Rx .COMPLEX #90 tabs Allergies Allergy/AdvReac Type Severity Reaction Status Date / Time latex Allergy Mild Itching Verified 11/11/24 11:32 Vital Signs Vital Signs - 24 hr 11/11/24 11:33 Temperature 97.2 F L Pulse Rate 84 Respiratory Rate 19 Blood Pressure 132/82 Pulse Oximetry 99 Oxygen Delivery Room Air Exam Const: General: comfortable and no acute distress HENMT: Face/Nose/Sinus: Normal nares present Eyes: General: appearance normal, both eyes and all related structures Neck: Neck: no JVD Resp: Auscultation: clear to auscultation bilaterally Cardio: Rate: regular rate Rhythm: regular rhythm GI: Inspection: non-distended GI Palp: Yes Soft to palpation Skin: General skin exam: normal color Neuro: Speech: normal speech Extrem: General: normal to inspection Psych: Mental Status: mental status grossly normal Assessment and Plan Assessment and plan (1) GERD (gastroesophageal reflux disease): Code(s): K21.9 - Gastro-esophageal reflux disease without esophagitis Status: Acute Assessment and Plan: egd with bx on ppi (2) History of colonic polyps: Code(s): Z86.0100 - Personal history of colon polyps, unspecified Status: Acute Assessment and Plan: colonoscopy
[2024-11-11 13:00] VITALS: BP 108/62; PULSE 86; RESP 22; O2SAT 97
--- NOTE | 2024-11-11 13:01 | SUR.OPER ---
EGD START 1238, END 1241 COLONOSCOPY START 1244, END 1257 IRC 1250
--- NOTE | 2024-11-11 13:03 | W.PM.PROC2 ---
Procedure Note - Detailed Date of Procedure 11/11/24 Pre-op Diagnosis Hemorroids Post-op Diagnosis Same Procedure Performed irc of internal hemorrhoids Surgeon Tejinder Walls MD Anesthesia MAC (also had colonoscopy) Findings used anoscope and noted small size internal hemorrhoids, no fissure, no lesions. Description of Procedure IRC of internal hemorrhoids, hemorrhoids treated for 1.5 seconds x6
[2024-11-11 13:10] VITALS: BP 110/65; PULSE 73; RESP 20; O2SAT 98
[2024-11-11 13:20] VITALS: BP 122/77; PULSE 79; RESP 20; O2SAT 99
== END 2024-11-11 13:41 | disposition home or self-care (01) ==
PROVIDERS: PCP Clinical Nurse Specialist; Referring Provider Clinical Nurse Specialist; Visit Provider Internal Medicine Gastroenterology
PROC: 0DJ08ZZ Inspection of Upper Intestinal Tract, Via Natural or Artificial Opening Endoscopic (ICD-10-PCS; CPT 45378; principal; 2024-11-11 12:30)
PROC: (CPT 46930; 2024-11-11 12:30)
DX: Z12.11 Encounter for screening for malignant neoplasm of colon (principal); K63.5 Polyp of colon; K64.8 Other hemorrhoids; K57.30 Diverticulosis of large intestine without perforation or abscess without bleeding; K44.9 Diaphragmatic hernia without obstruction or gangrene; K29.50 Unspecified chronic gastritis without bleeding; K21.9 Gastro-esophageal reflux disease without esophagitis; E03.9 Hypothyroidism, unspecified; E78.5 Hyperlipidemia, unspecified; M06.9 Rheumatoid arthritis, unspecified; E66.9 Obesity, unspecified; Z68.30 Body mass index [BMI] 30.0-30.9, adult
CPT/HCPCS: 43239; 45380; 46930; 88305; J2003; J2704; J7120

== ENCOUNTER 2024-12-04 16:05 | Outpatient (CLI) | payer BC, SELFPAY ==
--- NOTE | ~2024-12-04 | US_ITS ---
EXAMINATION: US thyroid DATE: 12/04/2024 16:35 INDICATION: Palpable abnormality right neck TECHNIQUE: Multiple ultrasound images of the thyroid were obtained. COMPARISON: None. FINDINGS: The right thyroid lobe measures 2.3 x 0.7 x 0.9 cm. The left thyroid lobe measures 1.3 x 0.5 x 0.6 cm. The isthmus measures 0.2cm in anterior to posterior dimension. There is normal echotexture and echogenicity throughout the thyroid gland. No discrete nodules identified. Normal vascular flow is present. Within the area of palpable concern in the right lateral neck right reniform shaped focus of decrease d echogenicity measuring 12 mm in short axis dimension, consistent with a morphologically benign, non pathologically enlarged lymph node. An additional reniform shaped focus of decreased echogenicity is present within the left lateral neck measuring 8.4 mm in short axis dimension, consistent with a morphologically benign, nonpathologicall y enlarged lymph node. IMPRESSION: Unremarkable sonographic evaluation of an atrophic thyroid gland, as detailed above. Within the area of palpable concern along the right lateral neck is a morphologically benign nonpatho logically enlarged lymph nodes with an additional identified lymph node along the left lateral neck. Reviewed, dictated and finalized at location A. IMPRESSION: Unremarkable sonographic evaluation of an atrophic thyroid gland, as detailed armand dunn. Within the area of palpable concern along the right lateral neck is a morpholog ically benign nonpathologically enlarged lymph nodes with an additional identif ied lymph node along the left lateral neck.
== END 2024-12-04 16:06 | disposition home or self-care (01) ==
LOC: MICIMG 16:07
PROVIDERS: Visit Provider Clinical Nurse Specialist
DX: R22.0 Localized swelling, mass and lump, head (principal); R22.1 Localized swelling, mass and lump, neck
CPT/HCPCS: 76536

== ENCOUNTER 2024-12-23 10:36 | Outpatient (CLI) | payer BC, SELFPAY ==
--- OUTSIDE RECORDS SUMMARY | 2024-12-23 11:42 | XMS_ITS | Encounter Summary ---
Author Organization [facility] Address [address] [place] [address] Phone Care Team Providers Care Identifier Horse Name Role Phone Jignesh Chino DO Primary Care Provider [phone] Encounter Details Date Type Department Care Team (Late st Contact Info) Description 04/05/2021 Orders Only [facility] Scanning, Provider Social History Tobacco Use Types Packs/Day Years Used Date Smoking Tobacco: Never Smokeless Tobacco: Never Comments Unknown Sex and Gender Information Value Date Recorded Sex Assigned at Not on file Legal 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
--- OUTSIDE RECORDS SUMMARY | 2024-12-23 11:42 | XMS_ITS | Clinical Summary ---
Author Organization [facility] Address [address] [place] [id number] Phone Care Team Providers Care Security And Compliance Analyst Name Role Phone Jignesh Chino DO Primary Care Provider [phone] Allergies Active Allergy Reactions Criticality Noted Date Comments Penicillins 12/04/2020 Medications methotrexate 2.5 MG tablet 8 tabs weekly since june 5 Active cycloSPORINE (RESTASIS) 0.05 % ophthalmic emulsion 5 Active folic acid (FOLVITE) 1 MG tablet 5 Active cholecalciferol (VITAMIN D-3) 2000 units capsule 5 Active hydroxychloroqui ne (PLAQUENIL) 200 MG tablet 1 bid 5 Active aspirin-acetamin ophen-caffeine (EXCEDRIN MIGRAINE) 250-250-65 MG per tablet TAKE 1 TABLET 3 TIMES DAILY NEEDED. 3 Active Fluzone Quadrivalent 0.5 ML suspension prefilled syringe PHARMACY ADMINISTERED 0 Active atorvastatin (LIPITOR) 10 MG tablet Take 10 mg by mouth 1 (one) time each day 0 Active UNABLE TO FIND Med Name: lemonade 1qt per day Active eletriptan (Relpax) 20 MG tablet Relpax 20 mg tablet take 1 tablet by oral route ; if headache returns, the dose may be repeated after 2 hours, but no more than two doses should be given within a 24-hour period. Active loteprednol (LOTEMAX) 0.5 % ophthalmic suspension 1 Active potassium chloride (KLOR-CON) 10 MEQ CR tablet TAKE 1 TABLET BY MOUTH EVERY DAY 90 tablet 3 1 Active hydroCHLOROthiaz katie (HYDRODIURIL) 25 MG tablet TAKE 1 TABLET BY MOUTH EVERY DAY 90 tablet 3 2 Active levothyroxine (SYNTHROID) 112 MCG tablet Take 112 mcg by mouth 1 (one) time each day 2 Active Active Problems Problem Noted Date Diagnosed Date Raynaud's disease without gangrene 06/07/2018 Abdominal pain 08/30/2016 Rheumatoid arthritis 03/31/2015 Calculus of kidney 12/21/2014 Immunizations Immunization Administration Dates Next Due Influenza TIV (IM) 05/20/2020,06/09/2019 Family History Medical History Relation Comments Heart disease Father Kidney disease Neg Hx Kidney stone Neg Hx Relation Status Comments Father Social History Tobacco Use Types Packs/Day Years Used Date Smoking Tobacco: Never Smokeless Tobacco: Never Alcohol Use Standard Drinks/Week Comments Yes 0 (1 standard drink = 0.6 oz pur e alcohol) rare Comments Unknown Sex and Gender Information Value Date Recorded Sex Assigned at Not on file Legal Sex Female 9:22 AM MST Gender Identity Not on file Sexual Orientation Not on file Last Filed Vital Signs Vital Sign Reading Time Taken Comments Blood Pressure 118/80 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 Pulse 72 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 Temperature 35.5 C (95.9 F) 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 Respiratory Rate - - Oxygen Saturation - - Inhaled Oxygen Concentration - - Weight 92.5 kg (204 lb) 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
--- OUTSIDE RECORDS SUMMARY | 2024-12-23 11:42 | XMS_ITS | Data Portability ---
Author Organization [facility] Address [address] [place] [address] Care Team Providers Care Occupational Therapy Assist Name Role Phone YONI KELLEY Primary Care [...] a year unless there are new symptoms. [email or web address] Not available 07/21/2024 12:50:11 Plan of Treatment Reminders Order Date Submit Date Provider Last Modified By Organization Details Last Modified Time Details Appointments [facility] 2024 01:00P M BECKIE ZARATE NP Not available Not available Not available Lab None recorded. Referral None recorded. Procedures None recorded. Surgeries None recorded. Imaging MAMMO, screening , digital, bilateral 12/02/ 2024 12/02/2 024 [facility], [address], [place], [address], 11/06/2024 15:26:03 MAMMO, screening , bilateral 2022 023 [facility], [address], [place], [address], 11/06/2023 15:36:02 MAMMO, screening , bilateral 2021 022 [facility], [address], [place], [address], 10/05/2022 15:31:00 Medication Orders None recorded. Patient TargetsNo targets recorded. Patient Instructions Encounter Date Encounter Id Patient Instructions Last Modified By Organization Details Last Modified Time 07/06/2020 [id number] [email or web address] Not available 15:38:39 Reason for Referral [...] hardik: Isac Perez Colle cted: 07/11 1345 [employer] Order ing Locat ion: [place] [facility] [...] as clini hermelindo tierney nted. Not Available [facility] (Lab) [address], [place], [address], 07/21/2021 09:16:55 09/09/19 21 09/08/2020 MAMMO , scree nette, bilat eral No observ ation record ed. [facility] [address], [place], [address], 09/10/2020 17:47:46 09/12/19 22 09/12/2021 MAMMO , scree nette, bilat eral No observ ation record ed. [facility] [address], [place], [address], 09/16/2021 15:44:33 10/05/19 23 10/05/2022 MAMMO , scree nette, bilat eral No observ ation record ed. [email or web address] [facility] [address], [place], [address], 07/20/2023 11:23:57 11/06/19 24 11/06/2023 MAMMO , scree nette, bilat eral No observ ation record ed. [email or web address] [facility] [address], [place], [address], 11/25/2024 16:51:04 11/07/19 25 11/06/2024 MAMMO , scree nette, digit al, bilat eral No observ ation record ed. DEMI [facility] [address], [place], [address], 11/24/2024 04:01:51 Result Notes Documentation Provider Name and Address Organization Details Recorded Time Pap, Ig + Hr Hpv : ok to file nl no pp la,mendeza Matt Bai null, [facility] 07/26/2021 17:02:37 Mammo, Screening, Bilateral : ok to file nl no pp la,rma Matt Bai null, [facility] 09/16/2021 15:44:33 Problems Name Problem SNOMED Code Status Onset Date Resolution Date Notes Provider Name and Address Organization Details Recorded Time Adult health examinati on Completed 201307/10/2021 ROUTINE MEDICAL EXAM;Recor ded Elsewhere: No Locatio n: [facility] rce: EHR Chroni c: N Practice ID: [id number] Billa ble Time: 01:00:00 PM Olga Lidia Espinosa [facility] 21:13:38 Screening for malignant neoplasm of rectum Completed 201407/10/2021 Screening for malignant neoplasms of the rectum;Rec orded Elsewhere: No Locatio n: [facility] rce: EHR Chroni c: N Practice ID: [id number] Billa ble Time: 03:00:00 PM Olga Lidia Espinosa [facility] 21:14:[address] Concept Completed 201607/10/2021 Encntr for home care consultant exam (general) (routine) w/o abn findings;R ecorded Elsewhere: No Locatio n: [facility] rce: EHR Chroni c: N Practice ID: 0001 Billa ble Time: 01:30:00 PM Olga Lidia Espinosa [facility] 21:14:16 Specializ ed medical examinati on Completed 201407/10/2021 Gynecologi edy Examinatio n;Recorded Elsewhere: No Locatio n: [facility] rce: EHR Chroni c: N Practice ID: 0001 Billa ble Time: 03:00:00 PM Olga Lidia Espinosa [facility] 21:14:[address] Concept Completed 201507/10/2021 Encntr for general adult medical exam w/o abnormal findings;R ecorded Elsewhere: No Locatio n: [facility] Vania rce: EHR Chroni c: N Practice ID: [id number] Billa ble Time: 03:00:00 PM Olga Lidia [facility] 21:14:10 Screening for malignant neoplasm of cervix Completed 201107/10/2021 Screening for malignant neoplasms of the cervix;Rec orded Elsewhere: No Locatio n: [facility] rce: EHR Chroni c: N Practice ID: 0001 Billa ble Time: 02:00:00 PM Olga Lidia [facility] 21:13:45 Vaginitis and vulvovagi nitis Completed 201307/10/2021 Vaginitis and vulvovagin itis, unspecifie d;Practice ID: 0001 [facility] 21:14:37 Problem Notes None recorded. Procedures Surgical History Date Name Laterality Status Provider Name and Address Organization Details Recorded Time 4 Date of Last Mammogram completed [facility] 07/21/2024 12:54:09 3 Date of Last Pap Smear completed [facility] 07/21/2024 12:52:14 4 Colonoscopy completed [facility] 07/11/2021 11:57:27 6 biopsy of breast completed [facility] 07/11/2021 11:57:39 Imaging Results Imaging Date Name Status LastModified by Organiz ation Details LastModified Time 09/08/2020 MAMMO, screening, bilateral completed [facility] [address], [place], [address], 09/10/2020 17:47:46 09/12/2021 MAMMO, screening, bilateral completed layran [facility] [address], [place], [address], 09/16/2021 15:44:33 10/05/2022 MAMMO, screening, bilateral completed [email or web address] [facility] [address], [place], [address], 07/20/2023 11:23:57 11/06/2023 MAMMO, screening, bilateral completed [email or web address] [facility] [address], [place], [address], 11/25/2024 16:51:04 11/06/2024 MAMMO, screening, digital, bilateral active DEMI [facility] [address], [place], [address], 11/24/2024 04:01:51 Procedure Notes None recorded. Medical Equipment None Reported. Allergies Allergen ID Allergen Name Allergen Category Reaction Reaction Severity Criticality Documentation Date Start Date Code Code System Note Provider Name and Address Organization Details Recorded Time 87120 Product containin g penicilli n (product) medicatio n Not available Not available Not available 08/06/2020 88266 8001 SNOMED Comme nt: [facility]; Not Available [facility] 0 14:20:39 Medications Name Sig Start [...] t Available folic acid 20 mg capsule 07/11 completed Prescrib ed Elsewher e: Yes Loca tion: Devi bello [facility] odify By: amkuhmatt higginbotham DateTime : 11/27/19 14 10:15:00 AM Not Available Not Available Not Available potassium chloride ER 10 mEq tablet,ex tended release TAKE 2 TABLETS BY MOUTH EVERY DAY 07/21 completed Not Available Not Available Not Available Levoxyl 25 mcg tablet take 1 tablet by oral route every day 07/11 completed Prescrib ed Elsewher e: Yes Loca tion: Devi bello [facility] odify By: yady higginbotham DateTime : 12/04/19 [...] Elsewher e: Yes Loca tion: Devi bello [facility] odify By: yady higginbotham DateTime : 12/04/19 [...] Prescrib ed Elsewher e: Yes [facility] By: lavonne higginbotham DateTime : 11/27/19 14 10:15:00 AM Not Available Not Available Not Available Colon Herbal Cleanser capsule 07/11 completed Prescrib ed Elsewher e: Yes Loca tion: [facility] odify By: yady higginbotham DateTime : 12/04/19 12 02:00:00 PM Not Available Not Available Not Available levothyro xine 112 mcg tablet TAKE 1 TABLET BY MOUTH DAILY active Not Available Not Available No t Available Vitamins and Minerals tablet active Prescrib ed Elsewher e: Yes Loca tion: [facility] odify By: yady higginbotham DateTime : 12/04/19 12 02:00:00 PM Not Available Not Available Not Available Methotrex ate (Anti-Rhe umatic) 2.5 mg tablets in a dose pack take 2 tablet by oral route every week 07/11 completed Prescrib ed Elsewher e: Yes Loca tion: [facility] odify By: lavonne higginbotham DateTime : 11/27/19 14 10:15:00 AM Not Available Not Available Not Available Relpax 20 mg tablet take 1 tablet by oral route ; if headache returns, the dose may be repeated after 2 hours, but no more than two doses should be given within a 24-hour period. 07/11 completed Prescrib ed Elsewher e: Yes [facility] odify By: yady higginbotham DateTime : 12/04/19 12 02:00:00 PM Not Available Not Available Not Available potassium acetate 07/11 completed Not Available Not Available Not Available methotrex ate 07/11 completed Not Available Not Available Not Available hydrochlo rothiazid e 11/22 /2021 completed Not Available Not Available Not Available hydroxych loroquine 07/11 completed Not Available Not Available Not Available levofloxa ricky 07/11 completed Not Available Not Available Not Available Tirosint 13 mcg capsule take 1 capsule by oral route every day 07/11 completed Prescrib ed Elsewher e: Yes Loca tion: [facility] odify By: lavonne ingramunter DateTime : 11/27/19 14 10:15:00 AM Not Available Not Available Not Available Lotemax 0.5 % eye gel drops 07/20 completed Not Available Not Available Not Available hydroquin one (bulk) 100 % crystals 07/17 completed Prescrib ed Elsewher e: Yes Loca tion: [facility] odify By: zenon ingramunter DateTime : 02/27/20 14 01:00:00 PM Not Available Not Available Not Available potassium chloride ER 20 mEq tablet,ex tended release TAKE 1 TABLET BY MOUTH DAILY active Not Available Not Available No t Available Vitals Date Recorded Body height Body mass index (BMI) Body weight Provider Name and Address Organization Details Last Updated DateTime 07/11/2021 170.18 cm 33.4 kg/m2 03870.17 g Olga Lidia Espinosa [facility] 07/11/2021 11:50:45 Date Recorded Systolic blood pressure Diastolic blood pressure Provider Name and Address Organization Details Last Updated DateTime 07/11/2021 126 mm[Hg] 76 mm[Hg] Nina Luciano [facility]- [address], [place], [address], [facility] 07/27/2021 23:12:30 Date Recorded Body height Body mass index (BMI) Body weight Provider Name and Address Organization Details Last Updated DateTime 07/17/2022 170.18 cm 32 kg/m2 26183.84 g Olga Lidia Espinosa [facility] 07/17/2022 12:57:28 Date Recorded Systolic blood pressure Diastolic blood pressure Provider Name and Address Organization Details Last Updated DateTime 07/17/2022 122 mm[Hg] 76 mm[Hg] Nina Luciano [facility] [address], [place], [address], [facility] 07/18/2022 11:42:03 Date Recorded Body weight Provider Name an d Address Organization Details Last Updated DateTime 07/20/2023 15742.[address] [facility] 07/20/2023 11:13:30 Date Recorded Systolic blood pressure Diastolic blood pressure Provider Name and Address Organization Details Last Updated DateTime 07/20/2023 118 mm[Hg] 76 mm[Hg] Nina Luciano [facility] [address], [place], [address], [facility] 07/20/2023 11:23:15 Date Recorded Body height Body mass index (BMI) Body weight Systolic blood pressure Diastolic blood pressure Provider Name and Address Organization Details Last Updated DateTime 07/21/2024 170.18 cm 32 kg/m2 19697.84 g 108 mm[Hg] 70 mm[Hg] Dilcia Nichols [facility] 4 14:27:45 Date Recorded Body height Body mass index (BMI) Body weight Systolic blood pressure Diastolic blood pressure Provider Name and Address Organization Details Last Updated DateTime 07/06/2020 170.18 cm 41.3 kg/m2 348045.3 9 g 128 mm[Hg] 86 mm[Hg] April Walton [facility] 0 15:10:45 Social History Question Answer Notes LastModified by Organizat ion Details LastModified Time Tobacco Smoking Status Never Smoker Olga Lidia lowery, [facility] 07/10/2021 21:26:29 What Is Your [...] Anxious, Or Unable To Sleep At Night)? [id number] Information not available 07/10/2021 Do You Use [...] SNOMED-CT Code Diagnosis ICD10 Code Diagnosis Note [id number] Nina Luciano , [facility] [address],[place] [address] 07/06/2020 15:01:50 07/06/2020 16:56:09 Gynecologic examination 63861223 Z01.419 Take Calcium with Vitamin D 12-1500mg daily. Do monthly self breast exams. It is advised to get annual flu shot in the fall and she could obtain at [facility]. If you haven't received the Tdap vaccine [...] call or respond to this email Monogamous [facility] ip x 36yrs Pap/hpv Hx is neg Pap/hpv deferred per asccp unless otherwise indicated. Mammo ordered No other issues or concerns. [id number] Nina Luciano , [facility] [address],[place] [address] 07/11/2021 11:32:00 07/12/2021 19:31:55 Gynecologic examination 60774598 Z01.419 Take Calcium with Vitamin D 12-1500mg daily. Do monthly self breast exams. It is advised to get annual flu shot in the fall and she could obtain at [facility]. If you haven't received the Tdap vaccine [...] need std screenColo n screen UTDDexa n/a [id number] Nina Luciano [facility] [address],[place] [address] 07/17/2022 12:42:19 07/18/2022 16:37:42 Gynecologic examination 05608215 Z01.419 Z11.51 Take Calcium with Vitamin D 12-1500mg daily. Do monthly self breast exams. It is advised to get annual flu shot in the fall and she could obtain at [facility] or [facility] care clinic. If you haven't received the [...] naRoutine Labs PCPMammo ordered Screening mammography 24 489699 Z12.31 [id number] Nina Luciano [facility] [address] [address] 07/20/2023 11:09:14 07/21/2023 09:39:03 Gynecologic examination 14126040 Z01.419 Z11.51 Take Calcium with Vitamin D 12-1500mg daily. Do monthly self breast exams. It is advised to get annual flu shot in the fall and she could obtain at [facility] or [facility] care clinic. If you haven't received the [...] naRoutine Labs PCPMammo ordered Screening mammography 24 145575 Z12.31 [id number] Jesus Cabrera MD [facility] [address] [address] 07/21/2024 14:21:58 07/21/2024 14:52:13 Gynecologic examination 80090653 Z01.419 Annual gynecologi edy exam performed. Patient [...] DEXA scan- pt has order from kelly raygoza Pap smear- UTD (2022- WN), will repeat per ASCCP guidelines laboratory evaluation - PCP STI testing - declined Screening mammography 24 157097 Z12.31 Health Concerns Section Related Observation LastModified by Organization Jazmine ls LastModified Time None Recorded Concern Status LastModified by Organization Details LastModified Time None Recorded Advance Directives Directive None Recorded Payers Encounter Date Sequence Insurance Name Policy Number Policy Rosales Covered Member ID Rosales Member ID Guarantor Name 07/06/2020 1 [facility] [id number] Ceferino Valencia [id number] 07/11/2021 1 [facility] [id number] Ceferino Valencia [id number] 07/17/2022 1 [place] [id number] Ceferino Jainhr [id number] 07/20/2023 1 [place] [id number] Ceferino Jainhr [id number] 07/21/2024 1 [place] [id number] Ceferino Valencia [id number] Notes Date Note Type Note Provider Name [...] to date on colonoscopy screening Nina Luciano, [facility]- [address], [place], [address], [facility] 07/06/2020 15:38:57 07/11/2021 text/html Annual Blender Conveyor Operator Post-MenopausalRep orted bypatient.Menopaus al Symptoms:no menopausal symptoms; [...] mammogram; history of recent colonoscopy [facility] [address], [place], [address], [facility] 07/27/2021 23:14:24 07/17/2022 text/html Annual Blender Conveyor Operator Post-MenopausalRep orted bypatient.Menopaus al Symptoms:no menopausal symptoms; [...] mammogram; history of recent colonoscopy [facility] [address], [place], [address], [facility] 07/18/2022 11:43:46 07/20/2023 text/html Annual Blender Conveyor Operator Post-MenopausalRep orted bypatient.Menopaus al Symptoms:no menopausal symptoms; [...] mammogram; history of recent colonoscopy [facility] [address] [place], [address], [facility] 07/21/2023 09:33:31 07/21/2024 text/html Annual Blender Conveyor Operator Post-MenopausalRep orted bypatient.Menopaus al Symptoms:no menopausal symptoms; [...] today. BECKIE ZARATE, [facility] [address], [place], [address], [facility] 07/21/2024 14:50:38 OBGyn Episode Ob Episode Information Episode Created Date Number of Fetuses Patient Bloodtype Patient rh Status Prepregnancy Weight lbs Domestic Partner Domestic Partner Phone Father Name Musician Instrumental Status 07/11/20 21 1 CLOSED Fetus Data First Name Last Name Admitted to NICU Weight (g) Sex Living Outcome Pediatric Complications Fetus ID Race Codes Race Delivery Type 21463 Vaginal Delivery Onel Calculation Initial Onel Date [...] Domestic Partner Domestic Partner Phone Father Name Musician Instrumental Status 07/11/20 21 1 CLOSED Fetus Data First Name Last Name Admitted to NICU Weight (g) Sex Living Outcome Pediatric Complications Fetus ID Race Codes Race Delivery Type 76070 Vaginal Delivery Onel Calculation Initial Onel Date [...] Domestic Partner Domestic Partner Phone Father Name Musician Instrumental Status 07/11/20 21 1 CLOSED Fetus Data First Name Last Name Admitted to NICU Weight (g) Sex Living Outcome Pediatric Complications Fetus ID Race Codes Race Delivery Type 74472 Vaginal Delivery Onel Calculation Initial Onel Date [...] Domestic Partner Domestic Partner Phone Father Name Musician Instrumental Status 07/11/20 21 1 CLOSED Fetus Data First Name Last Name Admitted to NICU Weight (g) Sex Living Outcome Pediatric Complications Fetus ID Race Codes Race Delivery Type 52116 Vaginal Delivery Onel Calculation Initial Onel Date [...] Domestic Partner Domestic Partner Phone Father Name Musician Instrumental Status 07/11/20 21 1 CLOSED Fetus Data First Name Last Name Admitted to NICU Weight (g) Sex Living Outcome Pediatric Complications Fetus ID Race Codes Race Delivery Type , Induced 01972 Onel Calculation Initial Onel Date Initial Exam [...]
--- OUTSIDE RECORDS SUMMARY | 2024-12-23 11:42 | XMS_ITS | Encounter Summary ---
Author Organization [facility] Address [address] [place] [address] Phone Care Team Providers Care Business Development Associate Name Role Phone Jignesh Chino DO Primary Care Provider Reason for Visit * Reason Comments Med Refill Encounter Details Date Type Department Care Team (Late st Contact Info) Description 08/25/2020 Refill [facility] Nephrology and Hypertension [address] [facility], [address] [address] Prieto Briggs MD [address] [facility], [address] [facility] [place] [address] Social History Tobacco Use Types Packs/Day Years Used Date Smoking Tobacco: Never Smokeless Tobacco: Never Alcohol Use Standard Drinks/Week Comments Yes 0 (1 standard drink = 0.6 oz pur e alcohol) rare Comments Unknown Sex and Gender Information Value Date Recorded Sex Assigned at Not on file Legal Sex Female 9:22 AM [facility] Gender Identity Not on file Sexual Orientation [...] on filedocumented in this encounter Care Teams Business Development Associate Relationship Specialty Start Date End Date Jignesh Chino DO [address] [place] [address] PCP - General Internal Medicine 11/06/18 documented as of this encounter
--- OUTSIDE RECORDS SUMMARY | 2024-12-23 11:42 | XMS_ITS | Referral Summary ---
Author Organization [facility] Address [address] [place] [address] Care Team Providers Care Dag Coater Name Role Phone Jignesh Chino DO Primary Care Provider [phone] Encounters Date Type Department Care Team Description 11/14/2024 Orders Only [facility] Scanning, Provider 10/20/2024 2:40 PM MARKETING FINANCE SPECIALIST Office Visit [facility] Rheumatology [address] [place] [address] Jackelyn Kowalski NP 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 Dx) from Last 3 Months Allergies Active Allergy Reactions Criticality Noted Date Comments Penicillins Other (See comments) Low 12/04/2020 Sulfa (Sulfonamide Antibiotics) Unknown Medium 11/18 Medications aMILoride-hydro CHLOROthiazide (MODURETIC) 5-50 mg tablet 8 Active pseudoephedrine (SUDAFED) 30 mg tabletIndicatio ns:Nasal Congestion as needed 2 Active rizatriptan (MAXALT) 10 mg tabletIndicatio ns:Migraine as needed 8 Active POTASSIUM CHLORIDE ER 10 mEq CR tablet 8 Active hydroCHLOROthia zide (HYDRODIURIL) 25 mg tablet Take 1 tablet [...] total) by mouth daily as needed Active hydroxychloroqu ine (PLAQUENIL) 200 mg tabletIndicatio ns:Rheumatoid Arthritis Take 2 tablets (400 mg total) by mouth daily 180 tablet 3 4 Active Additional Information Patient not taking.Reported on 10/20/2024 methotrexate 2.5 mg tabletIndicatio ns:Rheumatoid Arthritis Take 8 tablets (20 mg total) by mouth every 7 days 96 tablet 1 5 Active folic acid (FOLVITE) 1 mg tablet Take 1 tablet (1,000 mcg total) by mouth daily 90 tablet 3 5 Active Active Problems Problem Noted Date Diagnosed Date Rheumatoid arthritis of [facility] sites with negative rheumatoid factor 08/08/2018 [...] on file Legal Sex Female 7:39 PM MARKETING FINANCE SPECIALIST Gender Identity Not on file Sexual Orientation Not on file Last Filed Vital Signs Vital Sign Reading Time Taken Comments Blood Pressure 122/74 10/20/2024 2:49 PM MARKETING FINANCE SPECIALIST Pulse 91 10/20/2024 2:49 PM MARKETING FINANCE SPECIALIST Temperature 36.6 C (97.9 F) 10/20/2024 2:49 PM MARKETING FINANCE SPECIALIST Respiratory Rate - - Oxygen Saturation 100% 10/20/2024 2:49 PM MARKETING FINANCE SPECIALIST Inhaled Oxygen Concentration - - Weight 92.4 kg (203 lb 9.6 oz) 10/20/2024 2:49 P M MARKETING FINANCE SPECIALIST Height 170.2 cm (5' 7 ) 10/20/2024 2:49 PM MARKETING FINANCE SPECIALIST Body Mass Index 31.89 10/20/2024 2:49 PM MARKETING FINANCE SPECIALIST Plan of Treatment Not on file Procedures Procedure Name Priority Date/Time Associated Diagnosis Comments GI - RESULT 11/14/2024 11:39 AM CDT from Last 3 Months Results * GI - RESULT (11/14/2024 11:39 AM CDT) Anatomical Region Laterality Modality Other us Provider Scanning Final Result from Last 3 Months Insurance [employer] OOS Care Teams Dag Coater Relationship Specialty Start Date End Date Jignesh Chino, DO BUCHANANI: [id number] PCP - General 12/06/16
--- OUTSIDE RECORDS SUMMARY | 2024-12-23 11:42 | XMS_ITS | Clinical Summary ---
Author Organization [facility] Address [address] [place] [address] Care Team Providers Care Certified Financial Planner Name Role Phone Jignesh Chino DO Primary Care Provider [phone]- [phone] Allergies Active Allergy Reactions Criticality Noted Date [...] Date Diagnosed Date [facility] with negative [facility] factor 08/08/2018 High [...] IM RHEUMATOLOGY Scanning, Provider 10/20/2024 2:40 PM WARD ASSISTANT Office Visit [facility] Rheumatology [address] [facility] [address] [place] [address] Jackelyn Kowalski, DEWAYNE 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 Dx) from Last 3 Months Surgical History Surgery [...] history of cardiac disorder - (Added by TW Conv) Arthritis Mother Dementia Mother Hearing loss Mother Hypothyroidism Mother Family histor y of hypothyroidism - (Added by TW Conv) Kidney disease Mother Osteoarthritis Mother Osteoporosis Mother Family history of osteoporosis - (Added by TW Conv) Vision loss Mother Relation Name Status Comments Daughter Alive Father Mother Alive Social History Tobacco Use Types Packs/Day Years Used Date Smoking Tobacco: Never Passive Smoke Exposure: Never Smokeless Tobacco: Never Tobacco Cessation:Counseling Given: Not Answered Comments Unknown Sex and Gender Information Value Date Recorded Sex Assigned at Not on file Legal Sex Female 7:39 PM WARD ASSISTANT Gender Identity Not on file Sexual Orientation Not on file Obstetrics History Last Filed Vital Signs Vital Sign Reading Time Taken Comments Blood Pressure 122/74 10/20/2024 2:49 PM WARD ASSISTANT Pulse 91 10/20/2024 2:49 PM WARD ASSISTANT Temperature 36.6 C (97.9 F) 10/20/2024 2:49 PM WARD ASSISTANT Respiratory Rate - - Oxygen Saturation 100% 10/20/2024 2:49 PM WARD ASSISTANT Inhaled Oxygen Concentration - - Weight 92.4 kg (203 lb 9.6 oz) 10/20/2024 2:49 P M WARD ASSISTANT Height 170.2 cm (5' 7 ) 10/20/2024 2:49 PM WARD ASSISTANT Body Mass Index 31.89 10/20/2024 2:49 PM WARD ASSISTANT Plan of Treatment Health Maintenance Due Date Last Done Comments Cervical Cancer Screening 1965 Colon Cancer Screening-Colonoscopy 1965 Depression Screening 1965 Hepatitis C Screening 1965 Hepatitis B Screening 1982 Regular Well Visit/Exam 18-64 1982 Pneumococcal vaccine <65 (1 of 2 - PCV) 1983 Breast Cancer Screening-Mammogram 10/05/2023 10/05/2022, 09/12/2021, 09/09/2020 Influenza Vaccine (Season Ended) 2025 05/20/2020, 06/09/2019, 05/24/2018, Additional history exists DTaP/Tdap/Td Vaccine (2 - Td or Tdap) 04/25/2028 04/25/2018 Zoster Vaccine Completed 12/22/2018, 10/19/2018 Procedures Procedure Name Priority Date/Time Associated Diagnosis Comments GI - RESULT 11/14/2024 11:39 AM CDT from Last 3 Months Results * GI - RESULT (11/14/2024 11:39 AM CDT) Anatomical Region Laterality Modality Other us Provider Scanning Final Result from Last 3 Months Insurance [employer] O[employer] Care Teams Certified Financial Planner Relationship Specialty Start Date End Date Jignesh Chino DO PCP - General 12/06/16
--- OUTSIDE RECORDS SUMMARY | 2024-12-23 11:42 | XMS_ITS | Encounter Summary ---
Author Organization [facility] Address [address] [place] [address] Phone Care Team Providers Care Curator Zoological Museum Name Role Phone Jignesh Chino DO Primary Care Provider [phone]- [phone] Encounter Details Date Type Department Care Team (Late st Contact Info) Description 12/10/2017 Orders Only [facility] Scanning, Provider Social History Tobacco Use Types Packs/Day Years Used Date Smoking Tobacco: Never Comments Unknown Sex and Gender Information Value Date Recorded Sex Assigned at Not on file Legal Sex Female 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
--- OUTSIDE RECORDS SUMMARY | 2024-12-23 11:42 | XMS_ITS | Encounter Summary ---
Author Organization [facility] Address [address] [place] [address] Phone Care Team Providers Care It Support Consultant Name Role Phone Jignesh Chino DO Primary Care Provider +1- [phone] Encounter Details Date Type Department Care Team (Late st Contact Info) Description 03/23/2023 Orders Only [facility] Scanning, Provider Social History Tobacco Use Types Packs/Day Years Used Date Smoking Tobacco: Never Passive Smoke Exposure: Never Smokeless Tobacco: Never Comments Unknown Sex and Gender Information Value Date Recorded Sex Assigned at Not on file Legal Sex Female 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
--- NOTE | 2024-12-24 17:59 | WPDHOMESLEEP ---
Sleep Study - Home Unattended Date of Study: 12/23/24 Ordering Provider: TIERRA RuelasP-C Interpreting Provider: Annel Meyer MD Home Sleep Study Type: Watch PAT Height: 1.7 m Weight: 89.811 kg Body Mass Index: 31.0 Neck Circumference (inches): 15 Thorp: 9 Reason for Sleep Study Witnessed apneas, loud snoring. During colonoscopy, RNs noted apneas, told her to be evaluated, Sleep History Paula Valencia is a 59-year-old female with loud snoring in when she was much thinner. She has sinus issues and attributed snoring to the same. A month ago after colonoscopy the nurse was telling her and the patient that she stops breathing during the procedure. The nurse recommended a sleep study. She has difficulty falling asleep and she wakes up during the night. She never awakens from sleep feeling short of breath. She occasionally awakens at night with heartburn, belching or coughing. She frequently snores and it is always loud enough that others complain. She frequently has difficulty sleeping with a cold. She occasionally wakes up gasping for breath at night. She frequently has breathing problems at night observed by others. She never sweats excessively at night or notices her heart pounding or beating irregularly at night. She never falls asleep during the day. She rarely falls asleep involuntarily however never falls asleep while driving. She does not have loss of muscle tone with strong emotion. She does not have daytime difficulties due to excessive sleepiness. She does not feel paralyzed on waking or falling asleep. She rarely has vivid dreamlike scenes upon awakening or falling asleep she does not feel afraid to go to sleep. She does not have nightmares. She occasionally remembers her dreams. She does not have racing thoughts. She does not feel sad or depressed. Occasionally she feels anxious. She frequently has muscular tension. She rarely kicks at night. She rarely has crawling and aching feelings in her legs. She rarely has any kind of leg pain at night. She does not have morning jaw pain. She occasionally grinds her teeth at night. She constantly is bothered by pain during the day which is due to rheumatoid arthritis. She occasionally is awakened by pain at night. She constantly wakes up feeling stiff in the morning. She occasionally wakes up with sore achy muscles. She frequently wakes up with pain in the neck and spine. She has headaches, fatigue, and she takes antacids regularly. Normal bedtime is 10:30 p.m. falling asleep within 20-30 minutes, waking between 2 and 3 times at night to use the bathroom. She may not be able to return to sleep until at least a half an hour has all laps. Her normal wake time is 7:00 a.m.. On weekends, bedtime is 11:30 p.m., wake time is 9:30 a.m.. She estimates getting 7 hours of sleep at night. She does not take naps in the afternoon or evening. A short nap is not refreshing. She is usually drowsy for 2 hours after waking. She feels better in the afternoon compared to other times a day. Habits: Tobacco : never Caffeine : 1/2 cup in the morning occasionally Alcohol : 1 glass on special occasions Recreational substances : Never PMFSH Past Medical History Medical History Second degree sunburn Bronchitis Left hip pain Strep pharyngitis Impacted cerumen of both ears Otitis media Cerumen impaction Hypothyroidism GERD (gastroesophageal reflux disease) Hyperlipidemia Rheumatoid arthritis Migraine Family History Family History Sibling Patient's brother is in good health Mother Hypothyroidism Social History Social History Social History: caffeine-coffee Smoking status: Never smoker Alcohol intake: never Substance use: never Substance use type: does not use Do You Feel Safe in your Home?: Yes Lack of Transportation: No Lack of Food: Never True Current Housing: I Have Housing Concerned About Future Housing: No Difficulty Paying Gas/Electric Bills: No Difficulty Paying for Meds: No Currently Unemployed: No Education: Associate Degree Difficulty w/ Childcare or Family Care: No Living arrangements: with family Gender identity (if verbalized by the patient): Female Spiritual care concerns: No Medications Home Medications ?Medication ?Instructions ?Recorded ?Confirmed ?Type Lactobacillus rhamnosus GG 20 1 cell PO DAILY 07/31/19 12/01/24 History billion cell capsule (Probiotic Digestive Care) folic acid 1 mg tablet 1 mg PO DAILY 07/31/19 12/01/24 History milk thistle 175 mg tablet 250 mg PO BID 07/31/19 12/01/24 History ascorbic acid (vitamin C) 250 mg 250 mg PO DAILY 03/10/21 12/01/24 History tablet potassium chloride 20 mEq 20 meq PO DAILY #180 tabs 04/11/23 12/01/24 Rx tablet,extended release hydrochlorothiazide 25 mg tablet See Rx Instructions .Route 05/19/24 12/01/24 Rx .COMPLEX #90 tabs cholecalciferol (vitamin D3) 250 250 mcg PO 3XW 06/20/24 12/01/24 History mcg (10,000 unit) capsule rizatriptan 10 mg tablet 10 mg PO DAILY PRN migraine 06/20/24 12/01/24 Rx headache #27 tabs levothyroxine 112 mcg tablet 112 mcg PO DAILY #90 tabs 08/22/24 12/01/24 Rx atorvastatin 10 mg tablet See Rx Instructions .Route 09/22/24 12/01/24 Rx .COMPLEX #90 tabs methotrexate sodium 2.5 mg tablet 2.5 mg PO WEEKLY 12/01/24 12/01/24 History Sleep Procedure The sleep study was completed using [employer] a technically adequate device with seven channels: peripheral arterial tone, actigraphy, body position, snore, respiratory movement, pulse oximetry, sleep staging, and heart rate. Prior to using the device, the patient received verbal and written instructions for its application and was provided with the help desk phone number for additional telephonic instruction with 24-hour availability of qualified personnel to answer questions. Sleep Architecture The total recording time is 8 hrs, 12 min. The total sleep time is 7 hrs, 14 min. Sleep latency is 25 minutes. REM latency is 54 minutes. The patient had 12 episodes of waking. Sleep architecture shows 25.5% deep sleep, 43.6% light sleep, and 30.9% stage REM. The patient spent 36.1% of total sleep time in the supine position. Sleep efficiency was 88%. Respiratory Analysis The overall AHI (pAHI 3%:) is 41.1. The central AHI is 6.7. The AHI was 34.5 in NREM and 55.0 in REM sleep. The AHI was 61.8 in Supine and 29.1 in Non-supine sleep. Percent of Carlito Winkler respirations is 0% Oximetry Data The oxygen desaturation index (GANESH 4%:) is 31.3. The mean saturation is 93%, and the lowest saturation is 71%. Time spent with saturation < 88% is 27.6 minutes. Snoring Profile Snoring average intensity is 49 dB. The patient snored above 45 decibels for 246.0 minutes, 56.6% of sleep time. Cardiac Profile The average pulse rate is 72 beats per minutes. The lowest pulse rate is 51 bpm. The highest pulse rate is 142 bpm. Cardiac Rhythm Analysis in Sleep does not show suspected atrial fibrillation. Premature beats occur occur less often than 0.1 per minute. Assessment and Plan Assessment and Plan (1) Obstructive sleep apnea: Code(s): G47.33 - Obstructive sleep apnea (adult) (pediatric) Status: Acute Assessment and Plan: This home sleep test using WatchPat on December 23, 2024 shows severe obstructive sleep apnea with an apnea hypopnea index of 41.1 using a 3% criteria, and 29.5 using a 4% criteria, a central apnea-hypopnea index of 6.7 which is mildly elevated, normal is fewer than 5 events per hour, desaturation to 71% and 27.6 minutes, 6.4% of the study spent below 88%. The patient had loud persistent snoring during the night. Events were worse in the supine position. The supine apnea-hypopnea index was 61.8, non-supine apnea-hypopnea index was 29.1. Due to the severity of her condition with an AHI 41.1, the desaturation to 71% and amount of time spent below 88%, she should have a CPAP titration in the sleep lab. Auto PAP may not be sufficient and is not recommended. She should have a sleep aid such as Ambien 5 mg to 10 mg or Lunesta 2 mg to 3 mg available, if needed, to take the sleep lab to initiate and maintain sleep during the titration. She should not nap on the day of the study. Given the central apnea-hypopnea index of 6.7 and the tachycardia up to 142, echocardiogram is recommended. Elevated central apneas can occur in the setting of decreased LV function, strokes, opioids and alcohol use. She does not have a history of these conditions. BMI is 31. She is actively losing weight which is recommended to reduce the severity of obstructive sleep apnea. Clinical data suggests that weight loss of 10% can reduce the severity of respiratory events and snoring and improve AHI by as much as 25%. Data The data obtained during this sleep study is adequate for interpretation. Certification This sleep study has been reviewed by a board certified sleep medicine physician.
[2024-12-25 20:27] VITALS: BMI 31.0
== END 2024-12-24 14:30 | disposition home or self-care (01) ==
LOC: ANHCSM 10:50
PROVIDERS: Visit Provider Clinical Nurse Specialist
DX: G47.10 Hypersomnia, unspecified (principal); G47.33 Obstructive sleep apnea (adult) (pediatric)
CPT/HCPCS: 95800

== ENCOUNTER 2025-01-01 15:17 | Outpatient (CLI) | payer BC, SELFPAY ==
--- NOTE | ~2025-01-01 | DEXA_ITS ---
Bone Density Report Name: MARCUS AZEVEDO Age: 59 Sex: Female Ethnicity: White Date of : 1965 Indication: osteopenia; height loss; rheumatoid arthritis; Referring Provider: Erika Lui Study: Bone densitometry was performed. Exam Date: January 01, 2025 Accession number: [id number] Bone Density: Region BMD T-score Z-score Classification AP Spine(L1-L4) 0.841 -1.9 -0.4 Osteopenia Femoral Neck (Left) 0.620 -2.1 -0.8 Osteopenia Total Hip (Left) 0.728 -1.8 -0.8 Osteopenia Femoral Neck (Right) 0.668 -1.6 -0.3 Osteopenia Total Hip (Right) 0.718 -1.8 -0.9 Osteopenia Total Hip Mean 0.723 -1.8 -0.9 Osteopenia World Health Organization criteria for BMD impression classify patients as: Normal (T-score at or above -1.0), Osteopenia (T-score between -1.0 and -2.5), or Osteoporosis (T-score at or below -2.5). 10-year Fracture Risk(1): Major Osteoporotic Fracture 12% Hip Fracture 1.7% Reported Risk Factors: [place] (), Neck BMD=0.620, BMI=31.0, rheumatoid arthritis (1) FRAX(R) Version 3.08. Fracture probability calculated for an untreated patient. Fracture probability may be lower if the patient has received treatment. Previous Exams: -- Region Exam Age BMD T-score BMD Change BMD Change Date g/cm2 vs Baseline vs Previous -- AP Spine (L1-L4) 01/01/2025 59 0.841 -1.9 -5.9%* -5.9%* 12/10/2017 52 0.893 -1.4 Total Hip(Left) 01/01/2025 59 0.728 -1.8 -4.4%* -4.4%* 12/10/2017 52 0.762 -1.5 Total Hip(Right) 01/01/2025 59 0.718 -1.8 -1.9% -1.9% 12/10/2017 52 0.731 -1.7 -- *Denotes significance at 95% confidence level, LSC for AP Spine = 0.022 g/cm2, LSC for Total Hip = 0.027 g/cm2 Clinical Information Provided by Patient: Has rheumatoid arthritis Has used the following medications: Vitamin D Has the following medical conditions: HYPOTHYROIDISM Patient maximum height was 69 Menopause Age: 46 No regular weight bearing exercise Drinks caffeinated beverages Onset of menses at age 12 Number of children 4 Impression: The patient has low bone mass, based on the Left Femoral Neck T-score. The patient has an estimated ten-year risk of hip fracture of 1.7% and an estimated ten-year risk of major fracture of 12%, based on the WHO FRAX algorithm. The BMD for the AP Spine (L1-L4) decreased, changing by -5.9% since the last DXA exam. The BMD for the Total Hip(Left) decreased, changing by -4.4% since the last DXA exam. Discussion: BONE DENSITY IS LOW AT ONE OR MORE SKELETAL SITES. This patient's lowest T-score is low at one or more skeletal sites. It meets the World Health Organization's (WHO) criteria for “low bone mass” (T-score between -1.0 and -2.5). The patient's 10-year risk of fracture as calculated by FRAX is less than the threshold where pharmacological therapy is recommended by the National Osteoporosis Foundation (NOF). However, all treatment decisions require clinical judgment and consideration of individual patient factors, including patient preferences, comorbidities, previous drug use, risk factors not captured in the FRAX model (e.g., frailty, falls, vitamin D deficiency, increased bone turnover, interval significant decline in bone density) and possible under or overestimation of fracture risk by FRAX. The patient should follow a healthful lifestyle (good nutrition with adequate calcium and vitamin D, and appropriate weight-bearing exercise). Follow-Up: Consider repeating this study in 2 years to reassess this patient's status, or sooner if there is some new clinical indication. Reported by: TRAV on 01/07/2025 8:23:00 AM. Reviewed, dictated and finalized at location AVictor Hugo [place]
== END 2025-01-01 15:18 | disposition home or self-care (01) ==
LOC: MICIMG 15:18
PROVIDERS: PCP Clinical Nurse Specialist; Visit Provider Clinical Nurse Specialist
DX: M85.89 Other specified disorders of bone density and structure, multiple sites (principal); Z78.0 Asymptomatic menopausal state; Z79.899 Other long term (current) drug therapy
CPT/HCPCS: 77080

== ENCOUNTER 2025-02-03 13:07 | Outpatient (CLI) | payer BC, SELFPAY ==
--- NOTE | 2025-02-03 13:21 | ECHO_ITS ---
Patient Info Name: Paula Valencia Age: 59 years : 1965 Gender: Female Ht: 67 in Wt: 195 lbs BSA: 2.07 m2 HR: 80 bpm BP: 121 / 90 mmHg Technical Quality: Good Exam Date: 02/03/2025 1:26 PM Patient Status: O Admit Date: 02/03/2025 Exam Type: CA echo doppler color flow Complete two-dimensional, color flow and Doppler transthoracic echocardiogram is performed. Security Chief Museum: Alida Saba Attending Provider: Erika Lui [facility] Summary 1. Complete two-dimensional, color flow and Doppler transthoracic echocardiogram is performed. 2. Left ventricular chamber dimension is normal. 3. Left ventricular systolic function is normal, estimated at 60-65. 4. The left ventricular diastolic function is grade I diastolic dysfunction. 5. E/e' 7 is not elevated. Left Ventricle E/e' 7 is not elevated. Left ventricular chamber dimension is normal. Left ventricular systolic function is normal, estimated at 60-65. The left ventricular diastolic function is grade I diastolic dysfunction. Right Ventricle Right ventricular chamber dimension is normal. Right ventricular systolic function is normal and with normal TAPSE 1.8 cm. Left Atria Left atrial chamber dimension is normal. Right Atria Right atrial chamber dimension is normal. Aortic Valve The aortic valve is trileaflet. There is no aortic valve stenosis. There is no aortic valve regurgitation. Pulmonic Valve There is no pulmonic regurgitation. Mitral Valve There is no mitral valve stenosis. There is no mitral valve regurgitation. Tricuspid Valve There is no tricuspid valve regurgitation. Pericardium/Pleural There is no pericardial effusion. Inferior Vena Cava Normal inferior vena cava with >50% collapse upon inspiration consistent with normal right atrial pressure, 5 mmHg. Aorta The aortic root size at the sinus of Valsalva is normal. Left Ventricular Outflow Tract Name Value Normal LVOT 2D LVOT Diameter 2.0 cm LVOT Doppler LVOT Peak Velocity 111 cm/s LVOT Peak Gradient 5 mmHg LVOT Mean Gradient 3 mmHg LVOT VTI 22 cm LVOT VTI/AV VTI Ratio 0.9 LVOT Stroke Volume 70 ml LVOT CO 5.6 l/min LVOT CI 2.7 l/min/m2 Pulmonic Valve Name Value Normal RVOT Doppler RVOT Peak Velocity 72 cm/s RVOT Peak Gradient 2 mmHg PV Doppler PV Peak Velocity 81 cm/s PV Peak Gradient 3 mmHg Mitral Valve Name Value Normal MV Diastolic Function MV E Peak Velocity 54 cm/s MV A Peak Velocity 82 cm/s MV E/A 0.7 MV Decel Time (PW) 301 ms MV Annular TDI MV E/e' (Septal) 9.9 MV E/e' (Lateral) 6.6 MV E/e' (Average) 8.2 Tricuspid Valve Name Value Normal Estimated PAP/RSVP RA Pressure 5 mmHg <=5 TV Annular TDI TV Lateral Norma s' Velocity 11.2 cm/s >=9.5 Aortic Valve Name Value Normal AV Doppler AV Peak Velocity 129 cm/s AV Peak Gradient 7 mmHg AV Mean Gradient 4 mmHg AV VTI 25 cm AV Area (Cont Eq VTI) 2.8 cm2 >=3.0 AV Area (Cont Eq Oneal) 2.8 cm2 AV DI (Oneal) 0.87 AV Regurgitation 2D LVOT Area 3.2 cm2 Ventricles Name Value Normal LV Dimensions 2D/MM IVS Diastolic Thickness (2D) 0.9 cm 0.6-1.0 LVID Diastole (2D) 4.6 cm 3.8-5.2 LVIW Diastolic Thickness (2D) 1.0 cm 0.6-0.9 LVID Systole (2D) 2.8 cm 2.2-3.5 LVOT Diameter 2.0 cm LV Mass (2D Cubed) 147.53 g 67.00-162.00 LV Mass Index (2D Cubed) 71 g/m2 43-95 Relative Wall Thickness (2D) 0.43 <=0.42 LV Fractional Shortening/Ejection Fraction 2D/MM LV Fractional Shortening (2D) 39 % 27-45 LV EF (2D Teichholz) 69 % LV Diastolic Volume (4C MOD) 67 ml LV EF (4C MOD) 56 % LV Diastolic Volume (2C MOD) 50 ml LV EF (2C MOD) 52 % LV Diastolic Volume (BP MOD) 59 ml 46-106 LV Diastolic Volume Index (BP MOD) 29 ml/m2 29-61 LV Systolic Volume (BP MOD) 27 ml 14-42 LV Systolic Volume Index (BP MOD) 13 ml/m2 8-24 LV EF (BP MOD) 55 % 54-74 LV Diastolic Length (4C) 7.9 cm LV Systolic Length (4C) 6.5 cm LV Stroke Volume (4C MOD) 38 ml Atria Name Value Normal LA Dimensions LA Volume (4C A-L) 35 ml LA Volume (BP A-L) 36 ml RA Dimensions RA Systolic Major [place] Length (4C) 4.4 cm 2.2-2.8 RA Area (4C) 8.0 cm2 <=18.0 Report Signatures
--- OUTSIDE RECORDS SUMMARY | 2025-02-03 13:41 | XMS_ITS | Continuity of Care Document ---
Author Organization [facility] Address [address] [facility] [place] [address] Phone Care Team Providers Care Open Hearth Melter Name Role Phone Joe Branham Unavailable Unavailable Procedures Procedure Date Eye Exam & Treatment Refraction Advance Directives Directive Yes / No Effective Date File Name No Information Encounters Encounter Description Practice Location Reason(s) For Visit Diagnoses Date Provider Providers Copied on Encounter [facility], [address], [place], [place], [id number], [place] tel:[phone] [facility] No Information [phone] 0 Yonas Diaz. [address] [facility] [address], [address], [place]. tel:[phone] Family History Family Member Type Diagnosis Age At Onset No Information Payers Payer name Insurance type Covered green party ID Authorjamina [email or web address](s) [facility] CI [id number] Social History Type Description Quantity Date Captured [...]
--- OUTSIDE RECORDS SUMMARY | 2025-02-03 13:41 | XMS_ITS | Continuity of Care Document ---
Author Organization [facility] Address [address] [place] [address] Phone Care Team Providers Care Boat Officer Name Role Phone Jeffrey Westfall MD Unavailable [...] Diagnoses Date Provider Providers Copied on Encounter [facility], [address], [place], [place], [id number], tel:[phone] [facility] No Information 201 1 Jonel Murphy. [address] [facility], [facility] [address] [place] [address], [id number]. tel:[phone] [facility], [address], [place], [place], [address], tel:[phone] [facility] HYPOTHYROIDISM NOS 200 7 Conversion Doctor. [address] [place] [address], [address], . [facility], [address], [place], [place], [address], tel:[phone] [facility] HYPERLIPIDEMIA NEC/NOS 200 7 Jonel Murphy. [address] [facility], [facility] [address] [place] [address], [id number]. tel:[phone] [facility], [address], [place], [place], [address], tel:[phone] [facility] OTHR MIGRNE WO [facility] MGRNSCREEN-DIAB ETES MELLITUSSCREEN LIPOID DISORDERS 5-200 7 Jonel Murphy. [address] [facility], [facility] [address], [place], [place], [address]. tel:[phone] [facility], [address], [place], [place], [address], tel:[phone] [facility] MALAISE AND FATIGUE NECABSENCE OF MENSTRUATION 7-200 5 Jonel Murphy. [address] [facility], [facility] [address], [place], [place], [address]. tel:[phone] [email or web address], [address], [place], [place], [address], [place] tel:[phone] [facility] DERMATITIS NOS Oct-2 4-200 5 Uriel Chawla. [address], [place], [place], [address], [place]. tel:[phone] [facility], [address], [place], [place], [address], [place] tel:[phone] [facility] ACNE NEC Oct- 4-200 5 Conversion Doctor. [address] [facility], [place], [address], [place]. [facility], [address], [place], [place], [address], [place] tel:[phone] [facility] PRURITIC DISORDER NOS Oct- 4-200 5 Jonel Murphy. [address] [facility], [facility] [address], [place], [place], [address]. tel:[phone] [email or web address] [facility], [address], [place], [place], [address], [place] tel:[phone] [facility] DERMAT D/T FOOD INGEST Sep- 9-200 3 Jonel Murphy. [address] [facility], [facility] [address], [place], [place], [address]. tel:[phone] [email or web address] [facility], [address], [place], [place], [address], tel:[phone] [facility] CHR MAXILLARY SINUSITIS Apr-2 5-200 2 Westfall Jeffrey. [address] [facility], [facility] [address], [place], [place], [address]. tel:[phone] [facility], [address], [place], [place], [address], [place] tel:[phone] [facility] CELLULITIS OF BUTTOCK Mar- 6-200 0 Jonel Murphy. [address] [facility], [facility] [address], [place], [address]. tel:[phone] Family History Family Member Type Diagnosis Age At Onset No Information Payers Payer name Insurance type Covered constitution party ID Authoriza timarquez(s) No Information Social History [...]
--- OUTSIDE RECORDS SUMMARY | 2025-02-03 13:41 | XMS_ITS | Encounter Summary ---
Author Organization [facility] Address [address] [place] [address] Phone Care Team Providers Care Processor Grain Name Role Phone Jignesh Chino DO Primary Care Provider Reason for Visit * Reason Comments Med Refill Encounter Details Date Type Department Care Team (Late st Contact Info) Description 08/25/2020 Refill [facility] 1034 [facility], [address] [address] Prieto Briggs MD [address] [facility], [address] [facility] [place] [address] Social History Tobacco Use Types Packs/Day Years Used Date Smoking Tobacco: Never Smokeless Tobacco: Never Alcohol Use Standard Drinks/Week Comments Yes 0 (1 standard drink = 0.6 oz pur e alcohol) rare Comments Unknown Sex and Gender Information Value Date Recorded Sex Assigned at Not on file Legal Sex Female 9:22 AM [facility] Gender Identity Not on file Sexual Orientation [...] on filedocumented in this encounter Care Teams Processor Grain Relationship Specialty Start Date End Date Jignesh Chino DO [address] [place] [address] PCP - General Internal Medicine 11/06/18 documented as of this encounter
--- OUTSIDE RECORDS SUMMARY | 2025-02-03 13:41 | XMS_ITS | Data Portability ---
Author Organization [facility] Address [address] [place] [address] Care Team Providers Care Mid Level Java Developer Name Role Phone YONI KELLEY Primary Care [...] a year unless there are new symptoms. [email or web address] Not available 07/21/2024 12:50:11 Plan of Treatment Reminders Order Date Submit Date Provider Last Modified By Organization Details Last Modified Time Details Appointments [facility] 2024 01:00P M BECKIE ZARATE NP Not available Not available Not available Lab None recorded. Referral None recorded. Procedures None recorded. Surgeries None recorded. Imaging MAMMO, screening , digital, bilateral 12/02/ 2024 12/02/2 024 [facility], [address], [place], [address], 11/06/2024 15:26:03 MAMMO, screening , bilateral [address] [facility], [address], [place], [address], 11/06/2023 15:36:02 MAMMO, screening , bilateral [address] [facility], [address], [place], [address], 10/05/2022 15:31:00 Medication Orders None recorded. Patient TargetsNo targets recorded. Patient Instructions Encounter Date Encounter Id Patient Instructions Last Modified By Organization Details Last Modified Time 07/06/2020 [id number] [email or web address] Not available 15:38:39 Reason for Referral [...] 73 Autho jonatan g Provi hardik: Isac Preez Colle cted: 07/11 1345 BAR ROLLER Order ing Locat ion: [place] [facility] [...] as clini hermelindo tierney nted. Not Available [facility] (Lab) [address], [place], [address], 07/21/2021 09:16:55 09/09/19 21 09/08/2020 MAMMO , scree nette, bilat eral No observ ation record ed. [facility] [address], [place], [address], 09/10/2020 17:47:46 09/12/19 22 09/12/2021 MAMMO , scree nette, bilat eral No observ ation record ed. [facility] [address], [place], [address], 09/16/2021 15:44:33 10/05/19 23 10/05/2022 MAMMO , scree nette, bilat eral No observ ation record ed. [email or web address] [facility] [address], [place], [address], 07/20/2023 11:23:57 11/06/19 24 11/06/2023 MAMMO , scree nette, bilat eral No observ ation record ed. [email or web address] [facility] [address], [place], [address], 11/25/2024 16:51:04 11/07/19 25 11/06/2024 MAMMO , scree nette, digit al, bilat eral No observ ation record ed. DEMI [facility] [address], [place], [address], 11/24/2024 04:01:51 Result Notes Documentation Provider Name and Address Organization Details Recorded Time Pap, Ig + Hr Hpv : ok to file nl no pp la,mendeza Freya Bai null, [facility] 07/26/2021 17:02:37 Mammo, Screening, Bilateral : ok to file nl no pp la,rma Freya Bai null, [facility] 09/16/2021 15:44:33 Problems Name Problem SNOMED Code Status Onset Date Resolution Date Notes Provider Name and Address Organization Details Recorded Time Adult health examinati on Completed 201307/10/2021 ROUTINE MEDICAL EXAM;Recor ded Elsewhere: No Locatio n: [facility]: EHR Chroni c: N Practice ID: 0001 Billa ble Time: 01:00:00 PM Olga Lidia Espinosa [facility] 21:13:38 Screening for malignant neoplasm of rectum Completed 201407/10/2021 Screening for malignant neoplasms of the rectum;Rec orded Elsewhere: No Locatio n: [facility]: EHR Chroni c: N Practice ID: 0001 Billa ble Time: 03:00:00 PM Olga Lidia Espinosa [facility] 21:14:[address] Concept Completed 201607/10/2021 Encntr for rn document improvement specialist exam (general) (routine) w/o abn findings;R ecorded Elsewhere: No Locatio n: [facility]: EHR Chroni c: N Practice ID: 0001 Billa ble Time: 01:30:00 PM Olga Lidia Espinosa [facility] 21:14:16 Specializ ed medical examinati on Completed 201407/10/2021 Gynecologi edy Examinatio n;Recorded Elsewhere: No Locatio n: [facility]: EHR Chroni c: N Practice ID: 0001 Billa ble Time: 03:00:00 PM Olga Lidia Espinosa [facility] 21:14:[address] Concept Completed 201507/10/2021 Encntr for general adult medical exam w/o abnormal findings;R ecorded Elsewhere: No Locatio n: [facility]: EHR Chroni c: N Practice ID: 0001 Billa ble Time: 03:00:00 PM Olga Lidia [facility] 21:14:10 Screening for malignant neoplasm of cervix Completed 201107/10/2021 Screening for malignant neoplasms of the cervix;Rec orded Elsewhere: No Locatio n: [facility]ce: EHR Chroni c: N Practice ID: 0001 Billa ble Time: 02:00:00 PM Olga Lidia [facility] 21:13:45 Vaginitis and vulvovagi nitis Completed 201307/10/2021 Vaginitis and vulvovagin itis, unspecifie d;Practice ID: 0001 [facility] 21:14:37 Problem Notes None recorded. Procedures Surgical History Date Name Laterality Status Provider Name and Address Organization Details Recorded Time 4 Date of Last Mammogram completed [facility] 07/21/2024 12:54:09 3 Date of Last Pap Smear completed [facility] 07/21/2024 12:52:14 4 Colonoscopy completed [facility] 07/11/2021 11:57:27 6 biopsy of breast completed [facility] 07/11/2021 11:57:39 Imaging Results None recorded. Procedure Notes None recorded. Medical Equipment None Reported. Allergies Allergen ID Allergen Name Allergen Category Reaction Reaction Severity Criticality Documentation Date Start Date Code Code System Note Provider Name and Address Organization Details Recorded Time 42526 Product containin g penicilli n (product) medicatio n Not available Not available Not available 08/06/2020 58513 8001 SNOMED Comme nt: [facility]at [facility]; Not Available [facility] [...] Prescrib ed Elsewher e: Yes Loca tion: [facility] odify By: lavonne higginbotham DateTime : 11/27/19 14 10:15:00 AM Not Available Not Available Not Available potassium chloride ER 10 mEq tablet,ex tended release TAKE 2 TABLETS BY MOUTH EVERY DAY 07/21 completed Not Available Not Available Not Available Levoxyl 25 mcg tablet take 1 tablet by oral route every day 07/11 completed Prescrib ed Elsewher e: Yes Loca tion: [facility] odify By: yady higginbotham DateTime : [...] ed Elsewher e: Yes Loca tion: [facility] odify By: yady higginbotham DateTime : 12/04/19 [...] Prescrib ed Elsewher e: Yes [facility] odify By: lavonne higginbotham DateTime : 11/27/19 14 10:15:00 AM Not Available Not Available Not Available Colon Herbal Cleanser capsule 07/11 completed Prescrib ed Elsewher e: Yes Loca tion: [facility] odify By: yady higginbotham DateTime : 12/04/19 12 02:00:00 PM Not Available Not Available Not Available levothyro xine 112 mcg tablet TAKE 1 TABLET BY MOUTH DAILY active Not Available Not Available No t Available Vitamins and Minerals tablet active Prescrib ed Elsewher e: Yes Loca tion: [facility] odify By: yady higginbotham DateTime : 12/04/19 12 02:00:00 PM Not Available Not Available Not Available Methotrex ate (Anti-Rhe umatic) 2.5 mg tablets in a dose pack take 2 tablet by oral route every week 07/11 completed Prescrib ed Elsewher e: Yes Loca tion: [facility] odify By: lavonne higginbotham DateTime : 11/27/19 14 10:15:00 AM Not Available Not Available Not Available Relpax 20 mg tablet take 1 tablet by oral route ; if headache returns, the dose may be repeated after 2 hours, but no more than two doses should be given within a 24-hour period. 07/11 completed Prescrib ed Elsewher e: Yes Loca tion: [facility] odify By: yady higginbotham DateTime : [...] Prescrib ed Elsewher e: Yes Loca tion: [facility] odify By: lavonne higginbotham DateTime : 11/27/19 14 10:15:00 AM Not Available Not Available Not Available Lotemax 0.5 % eye gel drops 07/20 completed Not Available Not Available Not Available hydroquin one (bulk) 100 % crystals 07/17 completed Prescrib ed Elsewher e: Yes Loca tion: [facility] odify By: zenno higginbotham DateTime : 02/27/20 14 01:00:00 PM Not [...] Updated DateTime 07/06/2020 170.18 cm 41.3 kg/m2 192918.3 9 g 128 mm[Hg] 86 mm[Hg] April [facility] 0 15:10:45 Date Recorded Systolic blood pressure Diastolic blood pressure Provider Name and Address Organization Details Last Updated DateTime 07/11/2021 126 mm[Hg] 76 mm[Hg] Nina Luciano [facility] [address], [place], [address], [facility] 07/27/2021 23:12:30 Date Recorded Body height Body mass index (BMI) Body weight Provider Name and Address Organization Details Last Updated DateTime 07/11/2021 170.18 cm 33.4 kg/m2 62821.17 sukhjinder Espinosa [facility] 07/11/2021 11:50:45 Date Recorded Systolic blood pressure Diastolic blood pressure Provider Name and Address Organization Details Last Updated DateTime 07/17/2022 122 mm[Hg] 76 mm[Hg] Nina Luciano [facility] [address], [place], [address], [facility] 07/18/2022 11:42:03 Date Recorded Body height Body mass index (BMI) Body weight Provider Name and Address Organization Details Last Updated DateTime 07/17/2022 170.18 cm 32 kg/m2 27713.84 sukhjinder Espinosa [facility] 07/17/2022 12:57:28 Date Recorded Systolic blood pressure Diastolic blood pressure Provider Name and Address Organization Details Last Updated DateTime 07/20/2023 118 mm[Hg] 76 mm[Hg] Nina Luciano [facility] [address], [place], [address], [facility] 07/20/2023 11:23:15 Date Recorded Body weight Provider Name an d Address Organization Details Last Updated DateTime 07/20/2023 19331.81 sukhjinder Sanchez [facility] 07/20/2023 11:13:30 Date Recorded Body height Body mass index (BMI) Body weight Systolic blood pressure Diastolic blood pressure Provider Name and Address Organization Details Last Updated DateTime 07/21/2024 170.18 cm 32 kg/m2 93960.84 g 108 mm[Hg] 70 mm[Hg] Dilcia Nichols [facility] 4 14:27:45 Social History Question Answer Notes LastModified by Organizat ion Details LastModified Time Tobacco Smoking Status Never Smoker Olga Lidia Espinosa [facility] 07/10/2021 21:26:29 Are You Blind Or Do You Have [...] Yes Information not available 07/10/2021 Do You Use Sunscreen Routinely? Yes Information not available 07/10/2021 Do You Have Difficulty Walking Or Climbing Stairs? No Information not available 07/20/2023 Sex: Unknown Functional Status Question Answer Note LastModified by Organizat ion Details LastModified Time Do you use any illicit or recreational drugs? No Information not available 07/10/2021 What is your level of alcohol consumption? Occasional Information not available 07/10/2021 Are you able to walk? YESWOREST Information not available 07/10/2021 Are you able to care for yourself? Yes Information n ot available 07/20/2023 Do you have difficulty dressing or bathing? No Information not available 07/20/2023 What is your exercise level? Occasional Information not available 07/10/2021 Mental Status Question Answer Note LastModified by Organization D etails LastModified Time Do you feel stressed (tense, restless, nervous, or anxious, or unable to sleep at night)? [id number] Information not available 07/10/2021 Family History Relationship Description Onset Age of [...] SNOMED-CT Code Diagnosis ICD10 Code Diagnosis Note [id number] [facility] [address] [address] 07/06/2020 15:01:50 07/06/2020 16:56:09 Gynecologic examination 50581512 Z01.419 Take Calcium with Vitamin D 12-1500mg daily. Do monthly self breast exams. It is advised to get annual flu shot in the fall and she could obtain at [facility] or [facility] clinic. If you haven't received the Tdap [...] call or respond to this email [facility] Pap/hpv Hx is neg Pap/hpv deferred per asccp unless otherwise indicated. Mammo ordered No other issues or concerns. [id number] Nina Luciano [facility] [address] [address] 07/11/2021 11:32:00 07/12/2021 19:31:55 Gynecologic examination 62429097 Z01.419 Take Calcium with Vitamin D 12-1500mg daily. Do monthly self breast exams. It is advised to get annual flu shot in the fall and she could obtain at [facility] or [facility]. If you haven't received the Tdap vaccine [...] need std screenColo n screen UTDDexa n/a [id number] Nina Luciano [facility] [address] [address] 07/17/2022 12:42:19 07/18/2022 16:37:42 Gynecologic examination 20791547 Z01.419 Z11.51 Take Calcium with Vitamin D 12-1500mg daily. Do monthly self breast exams. It is advised to get annual flu shot in the fall and she could obtain at [facility] or [facility]. If you haven't received the Tdap vaccine [...] naRoutine Labs PCPMammo ordered Screening mammography 24 631266 Z12.31 [id number] Nina Luciano [facility] [address] [address] 07/20/2023 11:09:14 07/21/2023 09:39:03 Gynecologic examination 59216667 Z01.419 Z11.51 Take Calcium with Vitamin D 12-1500mg daily. Do monthly self breast exams. It is advised to get annual flu shot in the fall and she could obtain at [facility] or [facility] clinic. If you haven't received the Tdap [...] naRoutine Labs PCPMammo ordered Screening mammography 24 960524 Z12.31 [id number] Jesus Cabrera MD [facility] [address] [address] 07/21/2024 14:21:58 07/21/2024 14:52:13 Gynecologic examination 69248022 Z01.419 Annual gynecologi edy exam performed. Patient [...] from kelly gist Pap smear- UTD (2022- ), will repeat per ASCCP guidelines laboratory evaluation - PCP STI testing - declined Screening mammography 24 362557 Z12.31 Health Concerns Section Related Observation LastModified by Organization Detai ls LastModified Time None Recorded Concern Status LastModified by Organization Details LastModified Time None Recorded Advance Directives Directive None Recorded Payers Insurance Date Sequence Insurance Name Policy Number Policy Rosales Covered Member ID Rosales Member ID Guarantor Name 07/17/2022 1 [facility] [id number] Ceferino [facility] [id number] 07/05/2020 1 [facility] Ceferino [facility] [id number] 07/21/2024 1 [facility] ([facility]) [id number] Ceferino [facility] [id number] Notes Date Note Type Note Provider Name [...] to date on colonoscopy screening Nina Luciano, JONY- [address], [place], [address], [facility] 07/06/2020 15:38:57 07/11/2021 text/html Annual Sock Turner Post-MenopausalRep orted bypatient.Menopaus al Symptoms:no menopausal symptoms; [...] mammogram; history of recent colonoscopy [facility] [address], [place], [address], [facility] 07/27/2021 23:14:24 07/17/2022 text/html Annual Sock Turner Post-MenopausalRep orted bypatient.Menopaus al Symptoms:no menopausal symptoms; [...] to schedule mammogram; history of recent colonoscopy JONY VelezLAURIE [address], [place], [address], [facility] 07/18/2022 11:43:46 07/20/2023 text/html Annual Sock Turner Post-MenopausalRep orted bypatient.Menopaus al Symptoms:no menopausal symptoms; [...] mammogram; history of recent colonoscopy Nina Luciano [facility] [address], [place], [address], [facility] 07/21/2023 09:33:31 07/21/2024 text/html Annual Sock Turner Post-MenopausalRep orted bypatient.Menopaus al Symptoms:no menopausal symptoms; [...] woman exam. Patient denies concerns today. BECKIE ZARATE NP [address], [place], [address], [facility] 07/21/2024 14:50:38 OBGyn Episode Ob Episode Information Episode Created Date Number of Fetuses Patient Bloodtype Patient rh Status Prepregnancy Weight lbs Domestic Partner Domestic Partner Phone Father Name Stock Receiver Status 07/11/20 21 1 CLOSED Fetus Data First Name Last Name Admitted to NICU Weight (g) Sex Living Outcome Pediatric Complications Fetus ID Race Codes Race Delivery Type 07783 Vaginal Delivery Onel Calculation Initial Onel Date [...] Domestic Partner Domestic Partner Phone Father Name Stock Receiver Status 07/11/20 21 1 CLOSED Fetus Data First Name Last Name Admitted to NICU Weight (g) Sex Living Outcome Pediatric Complications Fetus ID Race Codes Race Delivery Type 84089 Vaginal Delivery Onel Calculation Initial Onel Date [...] Domestic Partner Domestic Partner Phone Father Name Stock Receiver Status 07/11/20 21 1 CLOSED Fetus Data First Name Last Name Admitted to NICU Weight (g) Sex Living Outcome Pediatric Complications Fetus ID Race Codes Race Delivery Type 59542 Vaginal Delivery Onel Calculation Initial Onel Date [...] Domestic Partner Domestic Partner Phone Father Name Stock Receiver Status 07/11/20 21 1 CLOSED Fetus Data First Name Last Name Admitted to NICU Weight (g) Sex Living Outcome Pediatric Complications Fetus ID Race Codes Race Delivery Type 08979 Vaginal Delivery Onel Calculation Initial Onel Date [...] Domestic Partner Domestic Partner Phone Father Name Stock Receiver Status 07/11/20 21 1 CLOSED Fetus Data First Name Last Name Admitted to NICU Weight (g) Sex Living Outcome Pediatric Complications Fetus ID Race Codes Race Delivery Type , Induced 25608 Onel Calculation Initial Onel Date Initial Exam [...]
--- OUTSIDE RECORDS SUMMARY | 2025-02-03 13:41 | XMS_ITS | Clinical Summary ---
Author Organization [facility] Address [address] [place] [address] Phone Care Team Providers Care Remote Control Mirror Installer Name Role Phone JanellfatumaJignesh wahl DO Primary Care Provider [phone] Allergies Active Allergy Reactions Criticality Noted Date [...] Comments Blood Pressure 118/80 07/17/2022 11:00 AM MANAGER SOCIAL Pulse 72 07/17/2022 11:00 AM MANAGER SOCIAL Temperature 35.5 C (95.9 F) 07/17/2022 11:00 AM MANAGER SOCIAL Respiratory Rate - - Oxygen Saturation - - Inhaled Oxygen Concentration - - Weight 92.5 kg (204 lb) 07/17/2022 11:00 AM MANAGER SOCIAL Height 172.7 cm (5' 8) 07/17/2022 11:00 AM MANAGER SOCIAL Body Mass Index 31.02 07/17/2022 11:00 AM MANAGER SOCIAL Plan of Treatment Health Maintenance Due Date Last Done Comments Influenza Vaccine (Season Ended) 2025 05/20/20, 06/09/2019 Insurance [facility] Care Teams Remote Control Mirror Installer Relationship Specialty Start Date End Date Jignesh Chino DO [address] [place] [id number] PCP - General Internal Medicine 11/06/18
== END 2025-02-03 13:08 | disposition home or self-care (01) ==
LOC: ANHCARD 13:08
PROVIDERS: PCP Clinical Nurse Specialist; Visit Provider Clinical Nurse Specialist
DX: G47.33 Obstructive sleep apnea (adult) (pediatric) (principal)
CPT/HCPCS: 93306

== ENCOUNTER 2025-02-05 08:22 | Outpatient (CLI) | payer BC, SELFPAY ==
--- OUTSIDE RECORDS SUMMARY | 2025-02-05 08:28 | XMS_ITS | Data Portability ---
Author Organization [facility] Address [address] [place] [address] Care Team Providers Care Director Fraud Name Role Phone YONI KELLEY Primary Care [...] a year unless there are new symptoms. [email or web address] Not available 07/21/2024 12:50:11 Plan of Treatment Reminders Order Date Submit Date Provider Last Modified By Organization Details Last Modified Time Details Appointments [facility] 2024 01:00P M BECKIE ZARATE NP Not available Not available Not available Lab None recorded. Referral None recorded. Procedures None recorded. Surgeries None recorded. Imaging MAMMO, screening , digital, bilateral 12/02/ 2024 12/02/2 024 [facility], [address], [place], [address], 11/06/2024 15:26:03 MAMMO, screening , bilateral 2022 023 [facility], [address], [place], [address], 11/06/2023 15:36:02 MAMMO, screening , bilateral 2021 022 [facility], [address], [place], [address], 10/05/2022 15:31:00 Medication Orders None recorded. Patient TargetsNo targets recorded. Patient Instructions Encounter Date Encounter Id Patient Instructions Last Modified By Organization Details Last Modified Time 07/06/2020 [id number] [email or web address] Not available 15:38:39 Reason for Referral [...] hardik: Isac Perez Colle cted: 07/11 1345 INSPECTOR FINISHING Order ing Locat ion: [place] [facility] [...] as clini hermelindo tierney nted. Not Available [facility] (Lab) [address], [place], [address], 07/21/2021 09:16:55 09/09/19 21 09/08/2020 MAMMO , scree nette, bilat eral No observ ation record ed. [facility] [address], [place], [address], 09/10/2020 17:47:46 09/12/19 22 09/12/2021 MAMMO , scree nette, bilat eral No observ ation record ed. [facility] [address], [place], [address], 09/16/2021 15:44:33 10/05/19 23 10/05/2022 MAMMO , scree nette, bilat eral No observ ation record ed. [email or web address] [facility] [address], [place], [address], 07/20/2023 11:23:57 11/06/19 24 11/06/2023 MAMMO , scree nette, bilat eral No observ ation record ed. [email or web address] [facility] [address], [place], [address], 11/25/2024 16:51:04 11/07/19 25 11/06/2024 MAMMO , scree nette, digit al, bilat eral No observ ation record ed. DEMI [facility] [address], [place], [address], 11/24/2024 04:01:51 Result Notes Documentation Provider Name and Address Organization Details Recorded Time Pap, Ig + Hr Hpv : ok to file nl no pp la,mendeza Freya Bai null, [facility] 07/26/2021 17:02:37 Mammo, Screening, Bilateral : ok to file nl no pp la,rma Freya Bai null, [facility] 09/16/2021 15:44:33 Problems Name Problem SNOMED Code Status Onset Date Resolution Date Notes Provider Name and Address Organization Details Recorded Time Adult health examinati on Completed 201307/10/2021 ROUTINE MEDICAL EXAM;Recor ded Elsewhere: No Locatio n: [facility] rce: EHR Chroni c: N Practice ID: [id number] Billa ble Time: 01:00:00 PM Olga Lidia Espinosa [facility] 21:13:38 Screening for malignant neoplasm of rectum Completed 201407/10/2021 Screening for malignant neoplasms of the rectum;Rec orded Elsewhere: No Locatio n: [facility] rce: EHR Chroni c: N Practice ID: [id number] Billa ble Time: 03:00:00 PM Olga Lidia Espinosa [facility] 21:14:[address] Concept Completed 201607/10/2021 Encntr for gyn physician exam (general) (routine) w/o abn findings;R ecorded Elsewhere: No Locatio n: [facility] rce: EHR Chroni c: N Practice ID: [id number] Billa ble Time: 01:30:00 PM Olga Lidia Espinosa [facility] 21:14:16 Specializ ed medical examinati on Completed 201407/10/2021 Gynecologi edy Examinatio n;Recorded Elsewhere: No Locatio n: [facility] rce: EHR Chroni c: N Practice ID: [id number] Billa ble Time: 03:00:00 PM Olga Lidia Espinosa [facility] 21:14:[address] Concept Completed 201507/10/2021 Encntr for general adult medical exam w/o abnormal findings;R ecorded Elsewhere: No Locatio n: [facility] rce: EHR Chroni c: N Practice ID: [id number] Billa ble Time: 03:00:00 PM Olga Lidia [facility] 21:14:10 Screening for malignant neoplasm of cervix Completed 201107/10/2021 Screening for malignant neoplasms of the cervix;Rec orded Elsewhere: No Locatio n: [facility] rce: EHR Chroni c: N Practice ID: [id number] Billa ble Time: 02:00:00 PM Olga Lidia [facility] 21:13:45 Vaginitis and vulvovagi nitis Completed 201307/10/2021 Vaginitis and vulvovagin itis, unspecifie d;Practice ID: 0001 [facility] 21:14:37 Problem Notes None recorded. Procedures Surgical History Date Name Laterality Status Provider Name and Address Organization Details Recorded Time 4 Date of Last Mammogram completed [facility] 07/21/2024 12:54:09 3 Date of Last Pap Smear completed [facility] 07/21/2024 12:52:14 4 Colonoscopy completed [facility] 07/11/2021 11:57:27 6 biopsy of breast completed [facility] 07/11/2021 11:57:39 Imaging Results None recorded. Procedure Notes None recorded. Medical Equipment None Reported. Allergies Allergen ID Allergen Name Allergen Category Reaction Reaction Severity Criticality Documentation Date Start Date Code Code System Note Provider Name and Address Organization Details Recorded Time 70577 Product containin g penicilli n (product) medicatio n Not available Not available Not available 08/06/2020 28091 8001 SNOMED Comme nt: [facility]; Not Available [facility] 0 14:20:39 Medications Name Sig Start Date [...] Prescrib ed Elsewher e: Yes Loca tion: [facility] odify By: lavonne higginbotham DateTime : 11/27/19 14 10:15:00 AM Not Available Not Available Not Available potassium chloride ER 10 mEq tablet,ex tended release TAKE 2 TABLETS BY MOUTH EVERY DAY 07/21 completed Not Available Not Available Not Available Levoxyl 25 mcg tablet take 1 tablet by oral route every day 07/11 completed Prescrib ed Elsewher e: Yes Loca tion: [facility] odify By: yady higginbotham DateTime : 12/04/19 [...] Elsewher e: Yes Loca tion: [facility] odify By: yady higginbotham DateTime : [...] Prescrib ed Elsewher e: Yes [facility] odify By: lavonne higginbotham DateTime : 11/27/19 14 10:15:00 AM Not Available Not Available Not Available Colon Herbal Cleanser capsule 07/11 completed Prescrib ed Elsewher e: Yes Loca tion: Devi bello [facility] odify By: yady higginbotham DateTime : 12/04/19 12 02:00:00 PM Not Available Not Available Not Available levothyro xine 112 mcg tablet TAKE 1 TABLET BY MOUTH DAILY active Not Available Not Available No t Available Vitamins and Minerals tablet active Prescrib ed Elsewher e: Yes Loca tion: Devi [facility] odify By: yady higginbotham DateTime : 12/04/19 12 02:00:00 PM Not Available Not Available Not Available Methotrex ate (Anti-Rhe umatic) 2.5 mg tablets in a dose pack take 2 tablet by oral route every week 07/11 completed Prescrib ed Elsewher e: Yes Loca tion: [facility] odify By: lavonne higginbotham DateTime : 11/27/19 14 10:15:00 AM Not Available Not Available Not Available Relpax 20 mg tablet take 1 tablet by oral route ; if headache returns, the dose may be repeated after 2 hours, but no more than two doses should be given within a 24-hour period. 07/11 completed Prescrib ed Elsewher e: Yes Loca tion: [facility] odify By: yady higginbotham DateTime : 12/04/19 [...] Prescrib ed Elsewher e: Yes Loca tion: [facility] odify By: lavonne higginbotham DateTime : 11/27/19 14 10:15:00 AM Not Available Not Available Not Available Lotemax 0.5 % eye gel drops 07/20 completed Not Available Not Available Not Available hydroquin one (bulk) 100 % crystals 07/17 completed Prescrib ed Elsewher e: Yes Loca tion: [facility] odify By: zenon higginbotham DateTime : 02/27/20 14 01:00:00 PM [...] Updated DateTime 07/06/2020 170.18 cm 41.3 kg/m2 703122.3 9 g 128 mm[Hg] 86 mm[Hg] April [facility] 0 15:10:45 Date Recorded Systolic blood pressure Diastolic blood pressure Provider Name and Address Organization Details Last Updated DateTime 07/11/2021 126 mm[Hg] 76 mm[Hg] Nina Luciano [facility] [address], [place], [address], [facility] 07/27/2021 23:12:30 Date Recorded Body height Body mass index (BMI) Body weight Provider Name and Address Organization Details Last Updated DateTime 07/11/2021 170.18 cm 33.4 kg/m2 84093.17 sukhjinder Espinosa [facility] 07/11/2021 11:50:45 Date Recorded Systolic blood pressure Diastolic blood pressure Provider Name and Address Organization Details Last Updated DateTime 07/17/2022 122 mm[Hg] 76 mm[Hg] Nina Luciano [facility] [address], [place], [address], [facility] 07/18/2022 11:42:03 Date Recorded Body height Body mass index (BMI) Body weight Provider Name and Address Organization Details Last Updated DateTime 07/17/2022 170.18 cm 32 kg/m2 41482.84 sukhjinder Espinosa [facility] 07/17/2022 12:57:28 Date Recorded Systolic blood pressure Diastolic blood pressure Provider Name and Address Organization Details Last Updated DateTime 07/20/2023 118 mm[Hg] 76 mm[Hg] Nina Luciano [facility] [address], [place], [address], [facility] 07/20/2023 11:23:15 Date Recorded Body weight Provider Name an d Address Organization Details Last Updated DateTime 07/20/2023 21599.81 sukhjinder Sanchez [facility] 07/20/2023 11:13:30 Date Recorded Body height Body mass index (BMI) Body weight Systolic blood pressure Diastolic blood pressure Provider Name and Address Organization Details Last Updated DateTime 07/21/2024 170.18 cm 32 kg/m2 78093.84 g 108 mm[Hg] 70 mm[Hg] Dilcia Nichols [facility] 4 14:27:45 Social History Question Answer Notes LastModified by Organizat ion Details LastModified Time Tobacco Smoking Status Never Smoker Olga Lidia Espinosa [facility] 07/10/2021 21:26:29 Are You Blind [...] anxious, or unable to sleep at night)? [id number] Information not available 07/10/2021 Family History Relationship [...] SNOMED-CT Code Diagnosis ICD10 Code Diagnosis Note [id number] Nina Luc[facility] , [facility] [address] [address] 07/06/2020 15:01:50 07/06/2020 16:56:09 Gynecologic examination 49576292 Z01.419 Take Calcium with Vitamin D 12-1500mg daily. Do monthly self breast exams. It is advised to get annual flu shot in the fall and she could obtain at [facility] or [facility] clinic. If you haven't received [...] call or respond to this email [facility] Pap/hpv Hx is neg Pap/hpv deferred per asccp unless otherwise indicated. Mammo ordered No other issues or concerns. [id number] Nina Luciano [facility] [address] [address] 07/11/2021 11:32:00 07/12/2021 19:31:55 Gynecologic examination 28913765 Z01.419 Take Calcium with Vitamin D 12-1500mg daily. Do monthly self breast exams. It is advised to get annual flu shot in the fall and she could obtain at [facility] or [facility]. If you haven't received the Tdap vaccine [...] need std screenColo n screen UTDDexa n/a [id number] Nina Luciano [facility] [address] [address] 07/17/2022 12:42:19 07/18/2022 16:37:42 Gynecologic examination 35963680 Z01.419 Z11.51 Take Calcium with Vitamin D 12-1500mg daily. Do monthly self breast exams. It is advised to get annual flu shot in the fall and she could obtain at [facility] or [facility]. If you haven't received the Tdap vaccine [...] naRoutine Labs PCPMammo ordered Screening mammography 24 277864 Z12.31 [id number] Nina Luciano [facility] [address] [address] 07/20/2023 11:09:14 07/21/2023 09:39:03 Gynecologic examination 03252772 Z01.419 Z11.51 Take Calcium with Vitamin D 12-1500mg daily. Do monthly self breast exams. It is advised to get annual flu shot in the fall and she could obtain at [facility] or [facility] clinic. If you haven't received [...] naRoutine Labs PCPMammo ordered Screening mammography 24 939330 Z12.31 [id number] Jesus Cabrera MD [facility] [address] [address] 07/21/2024 14:21:58 07/21/2024 14:52:13 Gynecologic examination 03345355 Z01.419 Annual gynecologi edy exam performed. Patient [...] STI testing - declined Screening mammography 24 122660 Z12.31 Health Concerns Section Related Observation LastModified by Organization Detai ls LastModified Time None Recorded Concern Status LastModified by Organization Details LastModified Time None Recorded Advance Directives Directive None Recorded Payers Insurance Date Sequence Insurance Name Policy Number Policy Rosales Covered Member ID Rosales Member ID Guarantor Name 07/17/2022 1 [facility] [id number] Ceferino [facility] [id number] 07/05/2020 1 [facility] Ceferino [facility] [id number] 07/21/2024 1 [facility] ([facility] [id number] Ceferino [facility] [id number] Notes Date Note Type Note Provider Name [...] screening Nina Luciano, JONY- [address], [place], [address], [facility] 07/06/2020 15:38:57 07/11/2021 text/html Annual Kiln Setter Post-MenopausalRep orted bypatient.Menopaus al Symptoms:no menopausal symptoms; [...] mammogram; history of recent colonoscopy [facility] [address], [place], [address], [facility] 07/27/2021 23:14:24 07/17/2022 text/html Annual Kiln Setter Post-MenopausalRep orted bypatient.Menopaus al Symptoms:no menopausal symptoms; [...] recent colonoscopy JONY VelezLAURIE [address], [place], [address], [facility] 07/18/2022 11:43:46 07/20/2023 text/html Annual Kiln Setter Post-MenopausalRep orted bypatient.Menopaus al Symptoms:no menopausal symptoms; [...] mammogram; history of recent colonoscopy Nina Luciano [facility] [address], [place], [address], [facility] 07/21/2023 09:33:31 07/21/2024 text/html Annual Kiln Setter Post-MenopausalRep orted bypatient.Menopaus al Symptoms:no menopausal symptoms; [...] today. BECKIE ZARATE NP [address], [place], [address], [facility] 07/21/2024 14:50:38 OBGyn Episode Ob Episode Information Episode Created Date Number of Fetuses Patient Bloodtype Patient rh Status Prepregnancy Weight lbs Domestic Partner Domestic Partner Phone Father Name Apparatus Engineering Technologist Status 07/11/20 21 1 CLOSED Fetus Data First Name Last Name Admitted to NICU Weight (g) Sex Living Outcome Pediatric Complications Fetus ID Race Codes Race Delivery Type [id number] Vaginal Delivery Onel Calculation Initial Onel Date Initial Exam Date Initial Exam Provider Initial Ultrasound Date Last Menstrual Period Date Ultra Sound Weeks Gestation 0 Eighteen To Twenty Week Onel Update Ultra Sound Date Fundal Height At Umbil Quickening Date Ultra Sound Latest Weeks Gestation Final Onle Confirmed By Final Onel Confirmed Date Final [...] Domestic Partner Domestic Partner Phone Father Name Apparatus Engineering Technologist Status 07/11/20 21 1 CLOSED Fetus Data First Name Last Name Admitted to NICU Weight (g) Sex Living Outcome Pediatric Complications Fetus ID Race Codes Race Delivery Type 12961 Vaginal Delivery Onel Calculation Initial Onel Date [...] Domestic Partner Domestic Partner Phone Father Name Apparatus Engineering Technologist Status 07/11/20 21 1 CLOSED Fetus Data First Name Last Name Admitted to NICU Weight (g) Sex Living Outcome Pediatric Complications Fetus ID Race Codes Race Delivery Type [id number] Vaginal Delivery Onel Calculation Initial Onel Date [...] Domestic Partner Domestic Partner Phone Father Name Apparatus Engineering Technologist Status 07/11/20 21 1 CLOSED Fetus Data First Name Last Name Admitted to NICU Weight (g) Sex Living Outcome Pediatric Complications Fetus ID Race Codes Race Delivery Type 85083 Vaginal Delivery Onel Calculation Initial Onel Date [...] Domestic Partner Domestic Partner Phone Father Name Apparatus Engineering Technologist Status 07/11/20 21 1 CLOSED Fetus Data First Name Last Name Admitted to NICU Weight (g) Sex Living Outcome Pediatric Complications Fetus ID Race Codes Race Delivery Type , Induced [id number] Onel Calculation Initial Onel Date Initial Exam [...]
--- OUTSIDE RECORDS SUMMARY | 2025-02-05 08:28 | XMS_ITS | Clinical Summary ---
Author Organization [facility] Address [address] [place] [address] Phone Care Team Providers Care Supervisor Print Line Name Role Phone JanellfatumaJignesh wahl DO Primary Care Provider [phone] Allergies Active Allergy Reactions Criticality Noted Date [...] Comments Blood Pressure 118/80 07/17/2022 11:00 AM AUTOMATED WEAVER Pulse 72 07/17/2022 11:00 AM AUTOMATED WEAVER Temperature 35.5 C (95.9 F) 07/17/2022 11:00 AM AUTOMATED WEAVER Respiratory Rate - - Oxygen Saturation - - Inhaled Oxygen Concentration - - Weight 92.5 kg (204 lb) 07/17/2022 11:00 AM AUTOMATED WEAVER Height 172.7 cm (5' 8) 07/17/2022 11:00 AM AUTOMATED WEAVER Body Mass Index 31.02 07/17/2022 11:00 AM AUTOMATED WEAVER Plan of Treatment Health Maintenance Due Date Last Done Comments Influenza Vaccine (Season Ended) 2025 05/20/20, 06/09/2019 Insurance [facility] Care Teams Supervisor Print Line Relationship Specialty Start Date End Date Jignesh Chino DO [address] [place] [address] PCP - General Internal Medicine 11/06/18
--- OUTSIDE RECORDS SUMMARY | 2025-02-05 08:28 | XMS_ITS | Encounter Summary ---
Author Organization 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
--- OUTSIDE RECORDS SUMMARY | 2025-02-05 08:28 | XMS_ITS | Clinical Summary ---
Author Organization [facility] Address [address] [place] [address] Care Team Providers Care Sulfonation Equipment Operator Name Role Phone Jignesh Chino DO Primary Care Provider [phone] Allergies Active Allergy Reactions Criticality Noted Date [...] Noted Date Diagnosed Date Rheumatoid arthritis of [facility] sites with negative rheumatoid factor 08/08/2018 High [...] Orders Only [facility] Scanning, Provider from Last 3 Months Surgical History Surgery [...] on file Legal Sex Female 7:39 PM PLATING ENGINEER Gender Identity Not on file Sexual Orientation Not on file Obstetrics History Last Filed Vital Signs Vital Sign Reading Time Taken Comments Blood Pressure 122/74 10/20/2024 2:49 PM PLATING ENGINEER Pulse 91 10/20/2024 2:49 PM PLATING ENGINEER Temperature 36.6 C (97.9 F) 10/20/2024 2:49 PM PLATING ENGINEER Respiratory Rate - - Oxygen Saturation 100% 10/20/2024 2:49 PM PLATING ENGINEER Inhaled Oxygen Concentration - - Weight 92.4 kg (203 lb 9.6 oz) 10/20/2024 2:49 P M PLATING ENGINEER Height 170.2 cm (5' 7) 10/20/2024 2:49 PM PLATING ENGINEER Body Mass Index 31.89 10/20/2024 2:49 PM PLATING ENGINEER Plan of Treatment Health Maintenance Due Date [...] Final Result from Last 3 Months Insurance BL[employer] Care Teams Sulfonation Equipment Operator Relationship Specialty Start Date End Date Jignesh Chino DO PCP - General 12/06/16
--- OUTSIDE RECORDS SUMMARY | 2025-02-05 08:28 | XMS_ITS | Encounter Summary ---
Author Organization [facility] Address [address] [place] [address] Phone Care Team Providers Care Automatic Equipment Technician Name Role Phone Jignesh Chino DO Primary Care Provider [phone] Encounter Details Date Type Department Care Team (Late st Contact Info) Description 12/10/2017 Orders Only [facility] Scanning, Provider Social History Tobacco Use Types Packs/Day Years Used Date Smoking Tobacco: Never Comments Unknown Sex and Gender Information Value Date Recorded Sex Assigned at Not on file Legal 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
--- OUTSIDE RECORDS SUMMARY | 2025-02-05 08:28 | XMS_ITS | Encounter Summary ---
Author Organization [facility] Address [address] [place] [address] Phone Care Team Providers Care Head Well Puller Name Role Phone Jignesh Chino DO Primary Care Provider [phone] Encounter Details Date Type Department Care Team (Late st Contact Info) Description 03/23/2023 Orders Only [facility] Scanning, Provider Social History Tobacco Use Types Packs/Day Years Used Date Smoking Tobacco: Never Passive Smoke Exposure: Never Smokeless Tobacco: Never Comments Unknown Sex and Gender Information Value Date Recorded Sex Assigned at Not on file Legal Sex Female 7:39 PM [employer] Gender Identity Not on file Sexual Orientation [...] on filedocumented in this encounter Care Teams Head Well Puller Relationship Specialty Start Date End Date Jignesh Chino DO PCP - General 12/06/16 documented as of this encounter
--- OUTSIDE RECORDS SUMMARY | 2025-02-05 08:28 | XMS_ITS | Referral Summary ---
Author Organization [facility] Address [address] [place] [address] Care Team Providers Care Shotgun Shell Loading Machine Operator Name Role Phone Jignesh Chino DO Primary Care Provider [phone] Encounters Date Type Department Care Team Description 11/14/2024 Orders Only [facility] Scanning, Provider from Last 3 Months Allergies Active Allergy [...] Noted Date Diagnosed Date Rheumatoid arthritis of [facility] sites with negative rheumatoid factor 08/08/2018 High [...] on file Legal Sex Female 7:39 PM DATA TECHNICAL LEAD Gender Identity Not on file Sexual Orientation Not on file Last Filed Vital Signs Vital Sign Reading Time Taken Comments Blood Pressure 122/74 10/20/2024 2:49 PM DATA TECHNICAL LEAD Pulse 91 10/20/2024 2:49 PM DATA TECHNICAL LEAD Temperature 36.6 C (97.9 F) 10/20/2024 2:49 PM DATA TECHNICAL LEAD Respiratory Rate - - Oxygen Saturation 100% 10/20/2024 2:49 PM DATA TECHNICAL LEAD Inhaled Oxygen Concentration - - Weight 92.4 kg (203 lb 9.6 oz) 10/20/2024 2:49 P M DATA TECHNICAL LEAD Height 170.2 cm (5' 7) 10/20/2024 2:49 PM DATA TECHNICAL LEAD Body Mass Index 31.89 10/20/2024 2:49 PM DATA TECHNICAL LEAD Plan of Treatment Not on file Procedures Procedure Name Priority Date/Time Associated Diagnosis Comments GI - RESULT 11/14/2024 11:39 AM CDT from Last 3 Months Results * GI - RESULT (11/14/2024 11:39 AM CDT) Anatomical Region Laterality Modality Other us Provider Scanning Final Result from Last 3 Months Insurance [employer] O[employer] Care Teams Shotgun Shell Loading Machine Operator Relationship Specialty Start Date End Date Jignesh Chino DO PCP - General 12/06/16
--- OUTSIDE RECORDS SUMMARY | 2025-02-05 08:28 | XMS_ITS | Encounter Summary ---
Author Organization [facility] Address [address] [place] [id number] Phone Care Team Providers Care Pick Up Name Role Phone Jignesh Chino DO Primary Care Provider [phone] Reason for Visit * Reason Comments Med Refill Encounter Details Date Type Department Care Team (Late st Contact Info) Description 08/25/2020 Refill [facility] Nephrology and Hypertension [address] [facility], [address] [address] Prieto Briggs MD [address] [facility], [address] [facility] [place] [address] Social History Tobacco Use Types Packs/Day Years Used Date Smoking Tobacco: Never Smokeless Tobacco: Never Alcohol Use Standard Drinks/Week Comments Yes 0 (1 standard drink = 0.6 oz pur e alcohol) rare Comments Unknown Sex and Gender Information Value Date Recorded Sex Assigned at Not on file Legal Sex Female 9:22 AM [facility] Gender Identity Not on file Sexual Orientation [...] on filedocumented in this encounter Care Teams Pick Up Relationship Specialty Start Date End Date Jignesh Chino DO [address] [place] [address] PCP - General Internal Medicine 11/06/18 documented as of this encounter
--- NOTE | 2025-02-25 12:06 | WPDSLEEPSTUD ---
Sleep Study Date of Study: 02/05/25 Ordering Provider: IASAC Ruelas Interpreting Physician: Inez Lemus, DO Sleep Study Type: CPAP Titration Height: 1.7 m Weight: 87.997 kg Body Mass Index: 30.4 Neck Circumference (inches): 16 [place]: 9 Reason for Sleep Study WatchPAT home sleep test on 12/23/2024 showed an overall AHI of 41.1 (pAHI 3%), VELVET of 6.7 with desaturation down to 71%. Sleep History Paula Valencia is a 59-year-old female with loud snoring in when she was much thinner. She has sinus issues and attributed snoring to the same. A month ago after colonoscopy the nurse was telling her and the patient that she stops breathing during the procedure. The nurse recommended a sleep study. She has difficulty falling asleep and she wakes up during the night. She never awakens from sleep feeling short of breath. She occasionally awakens at night with heartburn, belching or coughing. She frequently snores and it is always loud enough that others complain. She frequently has difficulty sleeping with a cold. She occasionally wakes up gasping for breath at night. She frequently has breathing problems at night observed by others. She never sweats excessively at night or notices her heart pounding or beating irregularly at night. She never falls asleep during the day. She rarely falls asleep involuntarily however never falls asleep while driving. She does not have loss of muscle tone with strong emotion. She does not have daytime difficulties due to excessive sleepiness. She does not feel paralyzed on waking or falling asleep. She rarely has vivid dreamlike scenes upon awakening or falling asleep she does not feel afraid to go to sleep. She does not have nightmares. She occasionally remembers her dreams. She does not have racing thoughts. She does not feel sad or depressed. Occasionally she feels anxious. She frequently has muscular tension. She rarely kicks at night. She rarely has crawling and aching feelings in her legs. She rarely has any kind of leg pain at night. She does not have morning jaw pain. She occasionally grinds her teeth at night. She constantly is bothered by pain during the day which is due to rheumatoid arthritis. She occasionally is awakened by pain at night. She constantly wakes up feeling stiff in the morning. She occasionally wakes up with sore achy muscles. She frequently wakes up with pain in the neck and spine. She has headaches, fatigue, and she takes antacids regularly. Normal bedtime is 10:30 p.m. falling asleep within 20-30 minutes, waking between 2 and 3 times at night to use the bathroom. She may not be able to return to sleep until at least a half an hour has all laps. Her normal wake time is 7:00 a.m.. On weekends, bedtime is 11:30 p.m., wake time is 9:30 a.m.. She estimates getting 7 hours of sleep at night. She does not take naps in the afternoon or evening. A short nap is not refreshing. She is usually drowsy for 2 hours after waking. She feels better in the afternoon compared to other times a day. Habits: Tobacco : never Caffeine : 1/2 cup in the morning occasionally Alcohol : 1 glass on special occasions Recreational substances : Never PMFSH Past Medical History Medical History Second degree sunburn Bronchitis Left hip pain Strep pharyngitis Impacted cerumen of both ears Otitis media Cerumen impaction Hypothyroidism GERD (gastroesophageal reflux disease) Hyperlipidemia Rheumatoid arthritis Migraine Family History Family History Sibling Patient's brother is in good health Mother Hypothyroidism Social History Social History Social History: caffeine-coffee Smoking status: Never smoker Alcohol intake: never Substance use: never Substance use type: does not use Do You Feel Safe in your Home?: Yes Lack of Transportation: No Lack of Food: Never True Current Housing: I Have Housing Concerned About Future Housing: No Difficulty Paying Gas/Electric Bills: No Difficulty Paying for Meds: No Currently Unemployed: No Education: Associate Degree Difficulty w/ Childcare or Family Care: No Living arrangements: with family Gender identity (if verbalized by the patient): Female Spiritual care concerns: No Medications Home Medications ?Medication ?Instructions ?Recorded ?Confirmed ?Type Lactobacillus rhamnosus GG 20 1 cell PO DAILY 07/31/19 12/01/24 History billion cell capsule (Probiotic Digestive Care) folic acid 1 mg tablet 1 mg PO DAILY 07/31/19 12/01/24 History milk thistle 175 mg tablet 250 mg PO BID 07/31/19 12/01/24 History ascorbic acid (vitamin C) 250 mg 250 mg PO DAILY 03/10/21 12/01/24 History tablet potassium chloride 20 mEq 20 meq PO DAILY #180 tabs 04/11/23 12/01/24 Rx tablet,extended release hydrochlorothiazide 25 mg tablet See Rx Instructions .Route 05/19/24 12/01/24 Rx .COMPLEX #90 tabs cholecalciferol (vitamin D3) 250 250 mcg PO 3XW 06/20/24 12/01/24 History mcg (10,000 unit) capsule rizatriptan 10 mg tablet 10 mg PO DAILY PRN migraine 06/20/24 12/01/24 Rx headache #27 tabs atorvastatin 10 mg tablet See Rx Instructions .Route 09/22/24 12/01/24 Rx .COMPLEX #90 tabs methotrexate sodium 2.5 mg tablet 2.5 mg PO WEEKLY 12/01/24 12/01/24 History eszopiclone 2 mg tablet (Lunesta) 2 mg PO QHS #1 tablet 12/29/24 Rx levothyroxine 112 mcg tablet 112 mcg PO DAILY #90 tabs 02/18/25 Rx Sleep Procedure A full night CPAP Titration using the [employer] SleepDAQRI multi-channel system recorded the standard physiologic parameters including EEG, EOG, submentalis EMG, anterior tibialis EMG, EKG, body position, nasal and oral airflow using nasal pressure sensor and thermistor.? Respiratory parameters of chest and abdominal movements were recorded with Respiratory Inductance Plethysmography belts. Oxygen saturation was recorded by pulse oximetry. Video monitoring was also performed. Sleep stages, periodic limb movements, and EEG arousals were scored in 30 second epochs according to the criteria of the AASM Scoring Manual. The Apnea-Hypopnea Index was calculated using CMS guidelines for definition of hypopnea with 4% O2 desaturations while scoring respiratory events. Sleep Architecture The total recording time was 416.2 minutes.? The total sleep time was 342.0 minutes. Sleep latency was 16.5 minutes. REM latency was 77.0 minutes. Sleep efficiency was 82.2%. The patient had 48 awakenings for an awakening index of 8.4. Wake after Sleep Onset time was 57.5 minutes. The patient spent 28.5 minutes, 8.3% of total sleep time in Stage N1. The patient spent 203.5 minutes, 59.5% in Stage N2. The patient spent 51.5 minutes, 15.1% in Stage N3. The patient spent 58.5 minutes, 17.1% in Stage REM. Respiratory Analysis The patient had 86 hypopneas, 31 obstructive apneas, 11 mixed apneas, and 42 central apneas for an overall Apnea Hypopnea Index of 29.8 events per hour. The REM Apnea Hypopnea Index was 21.5. The NREM Apnea Hypopnea Index was 31.5. The patient had a Central Apnea Hypopnea Index of 7.4. There was no evidence of Carlito-Winkler Respirations. The patient was started on CPAP 5 cm H2O and titrated to BPAP 17/13 cm H2O. The patient was able to fall asleep starting on CPAP 5 cm H2O. The patient was able to achieve REM sleep starting on CPAP 5 cm H2O. The lowest residual AHI the patient was able to achieve was 9.7 on BPAP 17/13 cm H2O. On BPAP 17/13 cm H2O, the patient spent 32.5 minutes in NREM and 23 minutes in REM with 1 obstructive apnea, 6 central apneas and 2 hypopneas, resulting in an AHI of 9.7. The patient had a sleep efficiency of 84.1% on this pressure setting. Arousals There were 139 total arousals for an arousal index of 24.4. There were 79 spontaneous arousals for an index of 13.9. ?There were 51 arousals due to respiratory events for an index of 8.9. There were 0 arousals due to periodic limb movements for an index of 0.? There were 9 arousals due to isolated limb movements for an index of 1.6. Periodic Limb Movements The patient had 11 isolated limb movements with an index of 1.9. The patient had 4 periodic limb movements with index of 0.7. Patient had a total of 15 limb movements with a total limb movement index of 2.6. Oximetry Data The patient had an average oxygen saturation of 93.1% in sleep with a minimum oxygen saturation of 64.0% and a maximum oxygen saturation of 98.0%. The patient had 162 oxygen desaturations that were 4% or greater resulting in an Oxygen Desaturation Index of 28.4.? The patient spent 47.5 minutes, 11.4% of total sleep time with an oxygen saturation below 88%. Snoring Profile Mild to moderate snoring was present intermittently in the beginning of the study. The snoring resolved once the patient was titrated to 15 cm H2O. Cardiac Profile The EKG showed normal sinus rhythm with rare PACs. The patient had an average pulse rate of 68.0 bpm with a minimum pulse rate of 58.0 bpm and a maximum pulse rate of 93.0 bpm. ? EEG Profile No signs of seizure activity seen. Assessment and Plan Assessment and Plan (1) Obstructive sleep apnea: Code(s): G47.33 - Obstructive sleep apnea (adult) (pediatric) Status: Acute Assessment and Plan: The patient was started on CPAP 5 cm H2O and titrated to BPAP 17/13 cm H2O. The patient's sleep apnea mostly resolved on the final pressure setting with a good sleep efficiency. I recommend that the patient be prescribed BPAP 17/13 cm H2O, size small Resmed AirTouch F20 for her full face mask, BPAP filters/heated tubing and heated humidity. This should be used with all episodes of sleep.? Compliance should be reviewed within 31-90 days of starting therapy for usage greater than 4 hours per night greater than 70% of the nights. The patient should be asked about symptoms such as?excessive daytime sleepiness, quality of sleep, decreased nocturia, increased?mental functioning such as memory, mood, and concentration. Data The data obtained during this sleep study is adequate for interpretation. Certification This sleep study has been reviewed by a board certified sleep medicine physician.
[2025-02-25 12:07] VITALS: BMI 30.4
== END 2025-02-06 06:46 | disposition home or self-care (01) ==
LOC: ANHCSM 08:22
PROVIDERS: PCP Family Medicine; Visit Provider Clinical Nurse Specialist
DX: G47.33 Obstructive sleep apnea (adult) (pediatric) (principal)
CPT/HCPCS: 95811

== ENCOUNTER 2025-07-07 08:39 | Outpatient (CLI) | payer BC, SELFPAY ==
--- NOTE | 2025-07-23 10:40 | WPDSLEEPSTUD ---
Sleep Study Date of Study: 07/07/25 Ordering Provider: Inez Lemus DO Interpreting Physician: Annel Meyer MD Sleep Study Type: BiPAP Titration Height: 1.7 m Weight: 90.718 kg Body Mass Index: 31.3 Neck Circumference (inches): 15 [place]: 9 Reason for Sleep Study WatchPAT home sleep test on 12/23/2024 showed an overall AHI of 41.1 (pAHI 3%), VELVET of 6.7 with desaturation down to 71%. CPAP titration 02/05/2025 showed titration with pressure CPAP 5 up to be PAP 17/13 as the optimal asleep final setting. The patient did not believe that the titration was accurate and never picked up the BiPAP machine. She returns for a full night titration in order to requalify for treatment. Sleep History This history is from her prior sleep questionnaires. Paula Valencia is a 60-year-old female with loud snoring in when she was much thinner. She has sinus issues and attributed snoring to the same. A month ago after colonoscopy the nurse was telling her and the patient that she stops breathing during the procedure. The nurse recommended a sleep study. She has difficulty falling asleep and she wakes up during the night. She never awakens from sleep feeling short of breath. She occasionally awakens at night with heartburn, belching or coughing. She frequently snores and it is always loud enough that others complain. She frequently has difficulty sleeping with a cold. She occasionally wakes up gasping for breath at night. She frequently has breathing problems at night observed by others. She never sweats excessively at night or notices her heart pounding or beating irregularly at night. She never falls asleep during the day. She rarely falls asleep involuntarily however never falls asleep while driving. She does not have loss of muscle tone with strong emotion. She does not have daytime difficulties due to excessive sleepiness. She does not feel paralyzed on waking or falling asleep. She rarely has vivid dreamlike scenes upon awakening or falling asleep she does not feel afraid to go to sleep. She does not have nightmares. She occasionally remembers her dreams. She does not have racing thoughts. She does not feel sad or depressed. Occasionally she feels anxious. She frequently has muscular tension. She rarely kicks at night. She rarely has crawling and aching feelings in her legs. She rarely has any kind of leg pain at night. She does not have morning jaw pain. She occasionally grinds her teeth at night. She constantly is bothered by pain during the day which is due to rheumatoid arthritis. She occasionally is awakened by pain at night. She constantly wakes up feeling stiff in the morning. She occasionally wakes up with sore achy muscles. She frequently wakes up with pain in the neck and spine. She has headaches, fatigue, and she takes antacids regularly. Normal bedtime is 10:30 p.m. falling asleep within 20-30 minutes, waking between 2 and 3 times at night to use the bathroom. She may not be able to return to sleep until at least a half an hour has all laps. Her normal wake time is 7:00 a.m.. On weekends, bedtime is 11:30 p.m., wake time is 9:30 a.m.. She estimates getting 7 hours of sleep at night. She does not take naps in the afternoon or evening. A short nap is not refreshing. She is usually drowsy for 2 hours after waking. She feels better in the afternoon compared to other times a day. Habits: Tobacco : never Caffeine : 1/2 cup in the morning occasionally Alcohol : 1 glass on special occasions Recreational substances : Never PMFSH Past Medical History Medical History Hypersomnia Swelling, mass, or lump in head and neck Concern about eye disease without diagnosis Second degree sunburn Bronchitis Left hip pain Strep pharyngitis Impacted cerumen of both ears Otitis media Cerumen impaction Hypothyroidism GERD (gastroesophageal reflux disease) Hyperlipidemia Rheumatoid arthritis Migraine Family History Family History Sibling Patient's brother is in good health Mother Hypothyroidism Social History Social History Social History: caffeine-coffee Smoking status: Never smoker Alcohol intake: never Substance use: never Substance use type: does not use Lack of Transportation: No Lack of Food: Never True Current Housing: I Have Housing Concerned About Future Housing: No Difficulty Paying Gas/Electric Bills: No Difficulty Paying for Meds: No Currently Unemployed: No Education: Associate Degree Difficulty w/ Childcare or Family Care: No Living arrangements: with family Gender identity (if verbalized by the patient): Female Spiritual care concerns: No Medications Home Medications ?Medication ?Instructions ?Recorded ?Confirmed ?Type Lactobacillus rhamnosus GG 20 1 cell PO DAILY 07/31/19 05/25/25 History billion cell capsule (Probiotic Digestive Care) folic acid 1 mg tablet 1 mg PO DAILY 07/31/19 05/25/25 History milk thistle 175 mg tablet 250 mg PO BID 07/31/19 05/25/25 History ascorbic acid (vitamin C) 250 mg 250 mg PO DAILY 03/10/21 05/25/25 History tablet cholecalciferol (vitamin D3) 250 250 mcg PO 3XW 06/20/24 05/25/25 History mcg (10,000 unit) capsule atorvastatin 10 mg tablet See Rx Instructions .Route 09/22/24 05/25/25 Rx Held on 12/01/24. .COMPLEX #90 tabs Instructions: .Provider Order methotrexate sodium 2.5 mg tablet 2.5 mg PO WEEKLY 12/01/24 05/25/25 History levothyroxine 112 mcg tablet 112 mcg PO DAILY #90 tabs 02/18/25 05/25/25 Rx potassium chloride 20 mEq 20 meq PO DAILY #180 tabs 03/30/25 05/25/25 Rx tablet,extended release rizatriptan 10 mg tablet 10 mg PO DAILY PRN migraine 05/21/25 05/25/25 Rx headache #27 tabs hydrochlorothiazide 25 mg tablet See Rx Instructions .Route 06/24/25 Rx .COMPLEX #90 tabs eszopiclone 2 mg tablet (Lunesta) 2 mg PO QHS #1 tablet 06/25/25 Rx Sleep Procedure A full night CPAP Titration using the [employer] multi-channel system recorded the standard physiologic parameters including EEG, EOG, submentalis EMG, anterior tibialis EMG, EKG, body position, nasal and oral airflow using nasal pressure sensor and thermistor.? Respiratory parameters of chest and abdominal movements were recorded with Respiratory Inductance Plethysmography belts. Oxygen saturation was recorded by pulse oximetry. Video monitoring was also performed. Sleep stages, periodic limb movements, and EEG arousals were scored in 30 second epochs according to the criteria of the AASM Scoring Manual. The Apnea-Hypopnea Index was calculated using CMS guidelines for definition of hypopnea with 4% O2 desaturations while scoring respiratory events. Patient self-administered Lunesta 2 mg at the beginning of the study. She used a small ResMed AirTouch F20 full face mask and heated humidity, initial pressure was CPAP 5 cm titrated to 7 cm, 8 cm, 9 cm, 10 cm, 11 cm with 3 EPR, 13 cm with 3 EPR, 14 cm 3 EPR, be PAP 15/11, final pressure be PAP 16/12. Optimal pressure CPAP 10. At CPAP 10 cm, the patient spent 80 minutes in bed, 0.5 minutes awake, 69.5 minutes in non-REM and 10 minutes in REM. Sleep efficiency was 99%, residual AHI was 4.5 and the mean saturation was 95%. She had a total of 3 central apneas, 3 mixed apneas and 2 hypopneas. REM occurred in the supine position. The patient had central apneas at all pressures, worse with increasing pressures. Sleep Architecture The total recording time was 506.5 minutes. The total sleep time was 457.0 minutes. Sleep latency was 9.2 minutes. REM latency was 44.0 minutes. Sleep efficiency was 90.2%. The patient had 16 awakenings for an awakening index of 2.1. Wake after Sleep Onset time was 40.5 minutes. The patient spent 16.5 minutes, 3.6% of total sleep time in Stage N1. The patient spent 229.0 minutes, 50.1% in Stage N2. The patient spent 99.5 minutes, 21.8% in Stage N3. The patient spent 112.0 minutes, 24.5% in Stage REM. Respiratory Analysis The patient had 7 hypopneas, 10 obstructive apneas, 19 mixed apneas, and 61 central apneas for an overall Apnea Hypopnea Index of 12.7 events per hour. The REM Apnea Hypopnea Index was 24.1. The NREM Apnea Hypopnea Index was 9.0. The patient had a Central Apnea Hypopnea Index of 8.0. There were no Respiratory Effort Related Arousals.. The Respiratory Disturbance Index is 14.7 events per hour. There was no evidence of Carlito-Winkler Respirations. Arousals There were 59 total arousals for an arousal index of 7.7. There were 19 spontaneous arousals for an index of 2.5. There were 22 arousals due to respiratory events for an index of 2.9. There were no arousals due to periodic limb movements. There were 17 arousals due to isolated limb movements for an index of 2.2. Periodic Limb Movements The patient had 36 isolated limb movements with an index of 4.7. The patient had 4 periodic limb movements with index of 0.5. Patient had a total of 40 limb movements with a total limb movement index of 5.3. Oximetry Data The patient had an average oxygen saturation of 95.8% in sleep with a minimum oxygen saturation of 84% and a maximum oxygen saturation of 99%. The patient had 52 oxygen desaturations that were 4% or greater resulting in an Oxygen Desaturation Index of 6.8. The patient spent 1.1 minutes, 0.2% of total sleep time with an oxygen saturation below 88%. Snoring Profile Snoring was eliminated during the titration. Cardiac Profile The EKG showed normal sinus rhythm. The patient had an average pulse rate of 70 bpm with a minimum pulse rate of 57 bpm and a maximum pulse rate of 100 bpm. No arrhythmias noted. EEG Profile No signs of seizure activity seen. Assessment and Plan Assessment and Plan (1) Obstructive sleep apnea: Code(s): G47.33 - Obstructive sleep apnea (adult) (pediatric) Status: Acute Assessment and Plan: This full night PAP titration on 07/07/2025 shows an optimal pressure of CPAP 10 cm using a small ResMed AirTouch fullface mask with heated humidity. At CPAP 10 cm, the patient spent 80 minutes in bed, 0.5 minutes awake, 69.5 minutes in non-REM and 10 minutes in REM. Sleep efficiency was 99%, residual AHI was 4.5 and the mean saturation was 95%. REM occurred in the supine position. The patient had central apneas at all pressures, worse with increasing pressures. The patient should be prescribed this ResMed equipment as well as tubing, filters and reservoir. This should be used with all episodes of sleep. Compliance should be reviewed within 31-90 days of starting therapy for usage greater than 4 hours per night greater than 70% of the nights. The patient should be asked about symptoms such as excessive daytime sleepiness, quality of sleep, decreased nocturia, increased mental functioning such as memory, mood, and concentration. She had mild central apneas on the baseline, and she had treatment emergent central apneas during this study with both central and mixed apneas. These were worse at the higher pressures. During treatment on CPAP 10 cm, it is expected that her central and mixed apneas will resolve. BMI is 31. Weight management is advised. Clinical data suggests that weight loss of 10% can reduce the severity of respiratory events and snoring and improve AHI by as much as 25%. Data The data obtained during this sleep study is adequate for interpretation. Certification This sleep study has been reviewed by a board certified sleep medicine physician.
[2025-07-23 10:41] VITALS: BMI 31.3
== END 2025-07-08 07:39 | disposition home or self-care (01) ==
PROVIDERS: PCP Family Medicine; Visit Provider Family Medicine
DX: G47.33 Obstructive sleep apnea (adult) (pediatric) (principal)
CPT/HCPCS: 95811

== ENCOUNTER 2025-08-11 11:14 | Outpatient (CLI) | payer BC, SELFPAY ==
--- NOTE | ~2025-08-11 | XR_ITS ---
XR abdomen/kub 1V 08/11/2025 11:30 INDICATION: Renal stone TECHNIQUE: KUB COMPARISON: None FINDINGS: Bowel gas pattern is normal. There is no evidence of free air, mass, organomegaly, ascites or obstruction. No abnormal calculi are seen. The bones appear intact. There are calcified granulomas of the spleen. There are pelvic phleboliths. Mild lumbar levoscoliosis with spondylosis. IMPRESSION: 1: No acute abdominal abnormality identified. Reviewed, dictated and finalized at location O. [employer]
== END 2025-08-11 11:15 | disposition home or self-care (01) ==
LOC: MICIMG 11:16
PROVIDERS: PCP Clinical Nurse Specialist; Visit Provider Internal Medicine Nephrology
DX: N20.0 Calculus of kidney (principal)
CPT/HCPCS: 74018